=== PATIENT | female | born 1960 | race Caucasian/White ===

== ENCOUNTER → 2016-08-16 | Outpatient (CLI) | payer BC | END | disposition home or self-care (01) | LOC: LABWHC1 12:39 | PROVIDERS: ATTEND Otolaryngology | DX: J30.9 Allergic rhinitis, unspecified (principal) | CPT/HCPCS: 36415 ==

== ENCOUNTER 2018-05-03 07:47 | Day surgery (SDC) | payer BC ==
[2018-04-27 09:43] VITALS: BMI 24.0
--- NOTE | 2018-05-03 07:45 | P.HPOB ---
History of Present Illness H&P Date: 05/03/18 Chief Complaint: Postmenopausal bleeding 28-year-old presents for D&C hysteroscopy due to postmenopausal bleeding. Review of Systems All systems: negative Constitutional: Denies chills, Denies fever Eyes: denies blurred vision, denies pain Ears, nose, mouth and throat: Denies headache, Denies sore throat Cardiovascular: Denies chest pain, Denies shortness of breath Respiratory: Denies cough Gastrointestinal: Denies abdominal pain, Denies diarrhea, Denies nausea, Denies vomiting Genitourinary: Denies dysuria, Denies hematuria Musculoskeletal: Denies myalgias Integumentary: Denies pruritus, Denies rash Neurological: Denies numbness, Denies weakness Psychiatric: Denies anxiety, Denies depression Endocrine: Denies fatigue, Denies weight change Past Medical History Past Medical History: Asthma, GERD/Reflux Additional Past Medical History / Comment(s): post menopausal bleeding, Hx colitis,ulcerative colitis,Crohn's,mono x2,swine flu 2011,rt elbow fx,rt wrist fx History of Any Multi-Drug Resistant Organisms: None Reported Past Surgical History: Bowel Resection, Cholecystectomy, Uterine Ablation Additional Past Surgical History / Comment(s): ileostomy,mult bowel resections with clips present, x2,sinus surgery Past Anesthesia/Blood Transfusion Reactions: No Reported Reaction Additional Past Anesthesia/Blood Transfusion Reaction / Comment(s): blood transfusion 1981-no problems,Takes awhile to wake up with anesthesia Smoking Status: Never smoker - Past Family History Father Family Medical History: Congestive Heart Failure (CHF) Medications and Allergies Home Medications Medication Instructions Recorded Confirmed Type Aspirin 81 mg PO DAILY 11/20/14 04/27/18 History Azelastine HCl 2 spray EA NOSTRIL DAILY 11/20/14 04/27/18 History Cyanocobalamin [Vitamin B-12] 1.5 ml IM QMONTH 11/20/14 04/27/18 History Fexofenadine HCl [Maria Luz Allergy] 180 mg PO DAILY 11/20/14 04/27/18 History Levalbuterol Hfa Inhaler [Xopenex 1 puff INHALATION DAILY PRN 11/20/14 04/27/18 History Hfa Inhaler] Mometasone/Formoterol [Dulera 200 2 puff INHALATION QAM 11/20/14 04/27/18 History Mcg/5 Mcg Inhaler] Montelukast [Singulair] 10 mg PO HS 11/20/14 04/27/18 History Ranitidine HCl [Zantac] 300 mg OP BID 11/20/14 04/27/18 History Glucosam/Chond/Hyalu/Cf Borate 1 each PO DAILY 04/27/18 04/27/18 History [Move Free Joint Health Tablet] Multivitamin [Multivitamins Adult 1 each PO DAILY 04/27/18 04/27/18 History Gummies] Allergies Allergy/AdvReac Type Severity Reaction Status Date / Time esomeprazole magnesium Allergy Abdominal Verified 04/27/18 09:22 [From Nexium] Pain hydrocodone [From [place]] Allergy Anaphylaxis Verified 04/27/18 09:22 hydromorphone HCl Allergy severe Verified 04/27/18 09:22 [From Dilaudid] bradycardia karaya gum Allergy sultana Verified 04/27/18 09:22 [From Karaya Paste] omeprazole Allergy Abdominal Verified 04/27/18 09:22 Pain pantoprazole sodium Allergy Abdominal Verified 04/27/18 09:22 [From Protonix] Pain prednisone Allergy Rapid Verified 04/27/18 09:22 Heart Rate,psychotic methylphenidate HCl AdvReac Chest Pain Verified 04/27/18 09:22 [From Ritalin] Exam Osteopathic Statement: *. No significant issues noted on an osteopathic structural exam other than those noted in the History and Physical/Consult. Heart: Regular rate and rhythm Lungs: Clear to auscultation bilaterally Abdomen: Soft, nontender Extremities: Negative Homans sign Assessment and Plan (1) Postmenopausal bleeding Status: Acute Code(s): N95.0 - POSTMENOPAUSAL BLEEDING SNOMED Code(s): 88609542 Plan: D&C, hysteroscopy
[~2018-05-03 07:47] MED LIST: DEXAMETHASONE SOD PHOSPHATE 10 MG/ML 1 ML VIAL IV ONE; LACTATED RINGERS 1,000 ML IV SCH; LIDOCAINE 1% 20 ML VIAL (10MG/ML) FOR IV START INTRADERMA PRN; MIDAZOLAM (PF) 2 MG/2 ML VIAL IV PRN; ONDANSETRON 4 MG/2 ML VIAL IVP ONE; Pre Op ABX Message 1 EACH MISC MISCELLANE ONE; fentaNYL (PF) 50 MCG/ML 2 ML AMP IV PRN
[2018-05-03] MEDS ORDERED: LIDOCAINE 1% INJ 10MG/ML (20 ML MDV) ONE (09:11)
[2018-05-03] MEDS ORDERED: fentaNYL (PF) 50 MCG/ML 2 ML AMP ONE (09:11)
[2018-05-03] MEDS ORDERED: MIDAZOLAM 2 MG/2 ML VIAL ONE (09:11)
[2018-05-03] MEDS ORDERED: PROPOFOL 10 MG/ML 20 ML VIAL IV ONE (09:11)
--- NOTE | 2018-05-03 09:41 | P.OP ---
Date of Procedure: 05/03/18 Preoperative Diagnosis: 1. postmenopausal bleeding Postoperative Diagnosis: 1. postmenopausal bleeding 2. stenotic cervix Procedure(s) Performed: D&C hysteroscopy Anesthesia: MAC Surgeon: Destiny Bashir Estimated Blood Loss (ml): 2 IV fluids (ml): 600 Urine output (ml): 50 Pathology: other (endometrial currettings) Condition: stable Disposition: PACU Operative Findings: stenotic cervix, hysteroscopy showed normal cervix, I may have gotten into a false passage or there is scarring inside the uterine cavity. Description of Procedure: Patient taken the operating room where general anesthesia was obtained without difficulty. She is prepped and draped in normal sterile fashion dorsal lithotomy position, legs placed in candycane stirrups. Bladder was drained of all urine. Weighted speculum place in vagina the anterior lip the cervix was grasped with single-tooth tenaculum. The cervix was dilated with some difficulty but the #6 Hegar dilator. Hysteroscopy was performed and I did see a normal cervical opening and then the cervix, there was either scarring inside of the uterus over a false passage was made into the endometrium. Sharp as it was gently used to obtain endometrial curettings. All instruments removed from the vagina. Patient tolerated procedure well. Sponge and instrument counts correct 2. She was taken to recovery in stable condition.
[2018-05-03 09:54] VITALS: TEMP 97.2
[2018-05-03 10:07] VITALS: RESP 16
[2018-05-03] MEDS ORDERED: KETOROLAC 30 MG/ML 1 ML VIAL IVP ONE (10:25)
[2018-05-03 12:00] VITALS: BP 123/82; PULSE 70
== END 2018-05-03 12:45 | disposition home or self-care (01) ==
LOC: OR 07:47
PROVIDERS: ATTEND Obstetrics & Gynecology
DX: N85.9 Noninflammatory disorder of uterus, unspecified (principal); N95.0 Postmenopausal bleeding; J45.909 Unspecified asthma, uncomplicated; K21.9 Gastro-esophageal reflux disease without esophagitis; K50.90 Crohn's disease, unspecified, without complications; I10 Essential (primary) hypertension; Z90.49 Acquired absence of other specified parts of digestive tract; Z79.82 Long term (current) use of aspirin; Z79.51 Long term (current) use of inhaled steroids; Z79.899 Other long term (current) drug therapy; Z88.5 Allergy status to narcotic agent; Z88.8 Allergy status to other drugs, medicaments and biological substances
CPT/HCPCS: 88305; 58558; J2250; J1100; J2405; J2001; J3010; J1885; J2704

== ENCOUNTER → 2018-05-31 | Outpatient (CLI) | payer BC ==
[2018-05-31 12:53] LABS: Basophils # (A) 0.1 k/uL (0-0.2); Basophils % (A) 1 %; Eosinophils # (A) 0.3 k/uL (0-0.7); Eosinophils % (A) 4 %; HCT 45.9 % (34.0-46.0); HGB 14.8 gm/dL (11.4-16.0); Lymphocytes # (A) 1.6 k/uL (1.0-4.8); Lymphocytes % (A) 26 %; MCH 28.3 pg (25.0-35.0); MCHC 32.1 g/dL (31.0-37.0); Mean Platelet Volume 5.8; Monocytes # (A) 0.3 k/uL (0-1.0); Monocytes % (A) 5 %; Neutrophils # (A) 3.7 k/uL (1.3-7.7); Neutrophils % (A) 61 %; Platelet Count 336 k/uL (150-450); RBC 5.22 m/uL (3.80-5.40); RDW 13.1 % (11.5-15.5); WBC 6.1 k/uL (3.8-10.6)
[2018-05-31 12:58] LABS: Anion Gap 7 mmol/L; Blood Urea Nitrogen 13 mg/dL (7-17); Calcium 9.9 mg/dL (8.4-10.2); Carbon Dioxide 29 mmol/L (22-30); Chloride 106 mmol/L (98-107); Glucose 88 mg/dL (74-99); Potassium 4.5 mmol/L (3.5-5.1); Sodium 142 mmol/L (137-145)
== END | disposition home or self-care (01) ==
LOC: LABPAT 11:53
PROVIDERS: ATTEND Obstetrics & Gynecology
DX: Z01.812 Encounter for preprocedural laboratory examination (principal)
CPT/HCPCS: 80048; 85025

== ENCOUNTER 2018-06-05 05:50 | Inpatient (IN) | payer BC ==
[2018-06-01 11:07] VITALS: BMI 23.5
[~2018-06-05 05:50] MED LIST changes: -LACTATED RINGERS 1,000 ML IV SCH; -ONDANSETRON 4 MG/2 ML VIAL IVP ONE; -Pre Op ABX Message 1 EACH MISC MISCELLANE ONE; +ceFAZolin IN SWFI 2 GM/20 ML SYRINGE IVP ONE
--- NOTE | 2018-06-05 06:19 | P.HPOB ---
History of Present Illness H&P Date: 06/05/18 Chief Complaint: PMB 58 year old presents for total abdominal hysterectomy bilateral salpingo- oopherectomy for postmenopausal bleeding. She had an US that showed thickened endometrium and D&C was unable to assess endometrium. After consultation with REFERRAL COORDINATOR/ONC the recommendation is hysterectomy. Review of Systems All systems: negative Constitutional: Denies chills, Denies fever Eyes: denies blurred vision, denies pain Ears, nose, mouth and throat: Denies headache, Denies sore throat Cardiovascular: Denies chest pain, Denies shortness of breath Respiratory: Denies cough Gastrointestinal: Denies abdominal pain, Denies diarrhea, Denies nausea, Denies vomiting Genitourinary: Denies dysuria, Denies hematuria Musculoskeletal: Denies myalgias Integumentary: Denies pruritus, Denies rash Neurological: Denies numbness, Denies weakness Psychiatric: Denies anxiety, Denies depression Endocrine: Denies fatigue, Denies weight change Past Medical History Past Medical History: Asthma, GERD/Reflux Additional Past Medical History / Comment(s): post menopausal bleeding, Hx colitis,ulcerative colitis,Crohn's,mono x2,swine flu 2011,rt elbow fx,rt wrist fx History of Any Multi-Drug Resistant Organisms: None Reported Past Surgical History: Bowel Resection, Cholecystectomy, Uterine Ablation Additional Past Surgical History / Comment(s): ileostomy,mult bowel resections with clips present, x2,sinus surgery, D & C Past Anesthesia/Blood Transfusion Reactions: No Reported Reaction, Family History of Problems w/ Anesthesia Additional Past Anesthesia/Blood Transfusion Reaction / Comment(s): blood transfusion 1981-no problems,Takes a while to wake up from anesthesia, nephew had seizure after anesthesia, no malignant hyperthermia that she knows of Smoking Status: Never smoker - Past Family History Father Family Medical History: Congestive Heart Failure (CHF) Medications and Allergies Home Medications Medication Instructions Recorded Confirmed Type Aspirin 81 mg PO DAILY 11/20/14 06/01/18 History Azelastine HCl 2 spray EA NOSTRIL DAILY 11/20/14 06/01/18 History Cyanocobalamin [Vitamin B-12] 1.5 ml IM QMONTH 11/20/14 06/01/18 History Fexofenadine HCl [Maria Luz Allergy] 180 mg PO DAILY 11/20/14 06/01/18 History Levalbuterol Hfa Inhaler [Xopenex 1 puff INHALATION DAILY PRN 11/20/14 06/01/18 History Hfa Inhaler] Mometasone/Formoterol [Dulera 200 2 puff INHALATION QAM 11/20/14 06/01/18 History Mcg/5 Mcg Inhaler] Montelukast [Singulair] 10 mg PO QAM 11/20/14 06/01/18 History Ranitidine HCl [Zantac] 300 mg OP BID 11/20/14 06/01/18 History Glucosam/Chond/Hyalu/Cf Borate 1 each PO DAILY 04/27/18 06/01/18 History [Move Free Joint Health Tablet] Multivitamin [Multivitamins Adult 1 each PO DAILY 04/27/18 06/01/18 History Gummies] Allergies Allergy/AdvReac Type Severity Reaction Status Date / Time esomeprazole magnesium Allergy Abdominal Verified 06/01/18 10:33 [From Nexium] Pain hydrocodone [From [place]] Allergy Anaphylaxis Verified 06/01/18 10:33 hydromorphone HCl Allergy severe Verified 06/01/18 10:33 [From Dilaudid] bradycardia karaya gum Allergy sultana Verified 06/01/18 10:33 [From Karaya Paste] omeprazole Allergy Abdominal Verified 06/01/18 10:33 Pain pantoprazole sodium Allergy Abdominal Verified 06/01/18 10:33 [From Protonix] Pain prednisone Allergy Rapid Verified 06/01/18 10:33 Heart Rate,psychotic methylphenidate HCl AdvReac Chest Pain Verified 06/01/18 10:33 [From Ritalin] Exam Osteopathic Statement: *. No significant issues noted on an osteopathic structural exam other than those noted in the History and Physical/Consult. HEart: RRR Lungs: CTAB Abdomen: soft, nontender Extremeties: neg cem's Assessment and Plan (1) Postmenopausal bleeding Current Visit: No Status: Acute Code(s): N95.0 - POSTMENOPAUSAL BLEEDING SNOMED Code(s): 37548585 Plan: 1. total abdominal hysterectomy bilateral salpingo-oopherectomy
[2018-06-05] MEDS ORDERED: ONDANSETRON 4 MG/2 ML VIAL IVP ONE (06:58)
[2018-06-05] MEDS: LACTATED RINGERS 1,000 ML IV SCH ×2 (06:58→13:49)
[2018-06-05] MEDS ORDERED: HYDROCORTISONE SUCCINATE 100 MG/2 ML VIAL IVP ONE (06:59)
[2018-06-05] MEDS ORDERED: diphenhydrAMINE 50 MG/ML 1 ML VIAL IVP ONE (07:22)
[2018-06-05] MEDS ORDERED: ROCURONIUM BROMIDE 10 MG/ML 10 ML VIAL IV ONE (07:27)
[2018-06-05] MEDS ORDERED: PROPOFOL 10 MG/ML 20 ML VIAL IV ONE (07:27)
[2018-06-05] MEDS ORDERED: MIDAZOLAM 2 MG/2 ML VIAL ONE (07:27)
[2018-06-05] MEDS ORDERED: LIDOCAINE 1% INJ 10MG/ML (20 ML MDV) ONE (07:27)
[2018-06-05] MEDS ORDERED: MORPHINE SULFATE (PF) 0.3 MG/0.3 ML SYR ONE (07:27)
[2018-06-05] MEDS ORDERED: NEOSTIGMINE 1 MG/ML 10 ML VIAL ONE (07:27)
[2018-06-05] MEDS ORDERED: GLYCOPYRROLATE 0.2 MG/ML 2 ML VIAL ONE (07:27)
[2018-06-05] MEDS ORDERED: SUCCINYLCHOLINE CHLORIDE 100 MG/5 ML SYR IV ONE (07:27)
[2018-06-05] MEDS ORDERED: fentaNYL (PF) 50 MCG/ML 2 ML AMP ONE (07:27)
--- NOTE | 2018-06-05 09:01 | P.OP ---
Date of Procedure: 06/05/18 Preoperative Diagnosis: 1. postmenopausal bleeding Postoperative Diagnosis: 1. same Procedure(s) Performed: [facility] BSO Anesthesia: BOBBY Surgeon: Destiny Bashir Property Insurance Inspector #1: Nohemi Christensen Estimated Blood Loss (ml): 100 IV fluids (ml): 700 Urine output (ml): 50 Pathology: other (uterus, cervix, bilateral tubes and ovaries) Condition: stable Disposition: PACU Operative Findings: normal size and shape uterus, tubes and ovaries. Description of Procedure: Patient is taken the operating room where general anesthesia was obtained without difficulty. She is prepped and draped in normal sterile fashion, careful to cover her ileostomy site, in dorsal supine position. Marie catheter was placed. Pfannenstiel skin incision was made with scalpel carried through to underlying layer fascia with the scalpel. Fascia was incised in the midline and carried bilaterally with Nash scissors. Superior aspect of the fascia was grasped with a [place] clamps elevated and the underlying rectus muscles dissected off with Mayos. Inferior aspect of the same incision was grasped with the [place] clamps elevated and the underlying rectus muscles dissected off with the Nash's. Rectus muscles were the midline and the peritoneum was identified tented up and entered sharply with the scalpel. Incision was extended superiorly and inferiorly with good visualization of the bladder. The [place] self-retaining retractor was placed. The bowel is packed away with moist laparotomy sponges. Survey of the pelvis revealed a normal appearing uterus, tubes and bilateral ovaries. Lily clamps were used to stabilize the uterus and replaced at the cornu bilaterally. A Marilyn clamp was used to clamp across the right infundibular pelvic ligament was cut and suture ligated. A clamp was used in a stepwise fashion down the broad ligament to the uterine artery. These pedicles were clamped cut and then suture ligated. Marilyn clamp was used to clamp across the left infundibulopelvic ligament, cut and suture ligated. Same processed on this side was done down to the uterine artery. The uterine arteries on both sides were clamped with Marilyn clamps, cut and suture ligated. The bladder flap was taken down with Metzenbaums and pushed off the cervix with a moist laparotomy sponge. The sacral ligaments and cardinal limited ligaments were clamped cut and suture ligated on both sides. The uterus was amputated off the underlying vaginal mucosa. Vaginal mucosa was closed with 0 Vicryl in a running locked fashion. The pelvis was copiously irrigated and hemostasis was assured. All instruments were removed from the abdomen. The peritoneum was reapproximated with 2-0 Vicryl in a running fashion. The muscles were approximated with 2-0 Vicryl in interrupted fashion. The fascia was reapproximated with 0 Vicryl in running fashion. Subcu tissues closed with 3-0 Vicryl in running fashion. The skin was closed vladimir. Patient tolerated procedure well, sponge and instrument counts were correct 2. She was taken to recovery room in stable condition.
[2018-06-05] MEDS ORDERED: LACTATED RINGERS 1,000 ML IV ONE (09:03)
[2018-06-05] MEDS ORDERED: KETOROLAC 30 MG/ML 1 ML VIAL IVP ONE (09:48)
[2018-06-05] MEDS ORDERED: MORPHINE SULFATE 4 MG/ML SYRINGE IVP ONE (10:08)
[2018-06-05] MEDS ORDERED: MORPHINE SULFATE 4 MG/ML SYRINGE IVP PRN (10:18)
[2018-06-05] MEDS ORDERED: ONDANSETRON 4 MG/2 ML VIAL IVP PRN ×2 (10:18→10:36)
[2018-06-05] MEDS ORDERED: NALOXONE 0.4 MG/ML 1 ML VIAL IV PRN (10:18)
[2018-06-05] MEDS ORDERED: NALBUPHINE 10 MG/ML (1 ML AMP) IV PRN (10:18)
[2018-06-05] MEDS ORDERED: diphenhydrAMINE 50 MG/ML 1 ML VIAL IVP PRN ×2 (10:18→10:36)
[2018-06-05] MEDS ORDERED: METOCLOPRAMIDE 5 MG/ML 2 ML VIAL IVP PRN ×2 (10:18→10:36)
[2018-06-05] MEDS ORDERED: Acetaminophen-Codeine 300-30mg TAB PO PRN (10:36)
[2018-06-05] MEDS ORDERED: ALBUTEROL NEBULIZED 2.5 MG/3 ML INHALATION PRN (10:36)
[2018-06-05] MEDS ORDERED: SENNOSIDES-DOCUSATE SODIUM 1 EACH TAB PO PRN (10:36)
[2018-06-05] MEDS ORDERED: SIMETHICONE 80 MG CHEWABLE PO PRN (10:36)
[2018-06-05] MEDS: MONTELUKAST 10 MG TAB PO SCH (13:48)
[2018-06-05] MEDS: SYMBICORT 160-4.5 MCG INHALER INHALATION SCH ×2 (13:50→15:48)
[2018-06-05] MEDS: AZELASTINE 137MCG/SPRAY EA NOSTRIL SCH (13:50)
[2018-06-05] MEDS: LORATADINE 10 MG TAB PO SCH (13:50)
[2018-06-05] MEDS: FAMOTIDINE 20 MG TAB PO SCH ×2 (13:50→21:52)
[2018-06-05] MEDS: diphenhydrAMINE 50 MG CAP PO PRN (14:20)
[2018-06-05] MEDS: KETOROLAC 30 MG/ML 1 ML VIAL IVP PRN ×2 (16:07→21:59)
[2018-06-06] MEDS: KETOROLAC 30 MG/ML 1 ML VIAL IVP PRN (06:26)
[2018-06-06] MEDS: diphenhydrAMINE 50 MG CAP PO PRN (06:35)
[2018-06-06] MEDS: LACTATED RINGERS 1,000 ML IV SCH (06:35)
[2018-06-06 08:13] LABS: Basophils # (A) 0.1 k/uL (0-0.2); Basophils % (A) 1 %; Eosinophils # (A) 0.1 k/uL (0-0.7); Eosinophils % (A) 1 %; HCT 37.1 % (34.0-46.0); HGB 12.1 gm/dL (11.4-16.0); Lymphocytes # (A) 2.2 k/uL (1.0-4.8); Lymphocytes % (A) 18 %; MCH 29.3 pg (25.0-35.0); MCHC 32.7 g/dL (31.0-37.0); MCV 89.6 fL (80.0-100.0); Mean Platelet Volume 5.8; Monocytes # (A) 0.7 k/uL (0-1.0); Monocytes % (A) 6 %; Neutrophils # (A) 9.3 k/uL (1.3-7.7); Neutrophils % (A) 74 %; Platelet Count 310 k/uL (150-450); RBC 4.14 m/uL (3.80-5.40); RDW 13.4 % (11.5-15.5); WBC 12.5 k/uL (3.8-10.6)
[2018-06-06] MEDS: AZELASTINE 137MCG/SPRAY EA NOSTRIL SCH (08:14)
[2018-06-06] MEDS: FAMOTIDINE 20 MG TAB PO SCH ×2 (08:14→23:37)
[2018-06-06] MEDS: MONTELUKAST 10 MG TAB PO SCH (08:15)
[2018-06-06] MEDS: LORATADINE 10 MG TAB PO SCH (08:15)
--- NOTE | 2018-06-06 08:36 | P.PN ---
Progress Note - Text Progress Note Date: 06/06/18 Status post total abdominal hysterectomy with bilateral salpingo-oophorectomy. Postoperative day #1 Patient seen and examined. She had adequate output on her Marie catheter and her ileostomy bag. She is tolerating regular diet. She is ambulating without difficulty, but has not voided since the catheter was removed 2 hours ago. Her pain is controlled with Toradol and will be switching to oral medication today. Vital signs are stable Heart: Regular rate and rhythm Lungs: Clear to auscultation bilaterally Abdomen: Soft, expected postop tenderness, incision is clean, dry, intact with vladimir, her ileostomy site is intact with liquid stool noted in the bag. Extremities: Negative Homans sign Assessment 1. Status post total abdominal hysterectomy with bilateral salpingo- oophorectomy postop day #1 Plan 1. Increase ambulation 2. by mouth pain medication
[2018-06-06] MEDS: SYMBICORT 160-4.5 MCG INHALER INHALATION SCH ×2 (09:59→20:53)
--- NOTE | 2018-06-06 10:34 | P.PN ---
Progress Note - Text Progress Note Date: 06/06/18 Postoperative day 1 status post , total abdominal hysterectomy, under general endotracheal anesthesia, and intrathecal morphine given for postoperative analgesia, patient doing well, there is no anesthesia related complications, Patient had no headache, vital signs stable , Assessment and plan= postop day 1, , doing well there is no anesthesia related complication.
[2018-06-06] MEDS: IBUPROFEN 600 MG TAB PO PRN ×2 (12:20→19:55)
[2018-06-06] MEDS: Acetaminophen-Codeine 300-30mg TAB PO PRN ×2 (16:10→23:35)
[2018-06-06 22:11] VITALS: RESP 16
[2018-06-07] MEDS: IBUPROFEN 600 MG TAB PO PRN (05:40)
--- NOTE | 2018-06-07 08:03 | P.DS ---
Providers Date of admission: 06/05/18 05:50 Expected date of discharge: 06/07/18 Attending physician: Destiny Bashir Primary care physician: Isak Milligan - Discharge Diagnosis(es) (1) Postmenopausal bleeding Current Visit: No Status: Acute (2) Status post total abdominal hysterectomy and bilateral salpingo-oophorectomy Current Visit: Yes Status: Acute Hospital Course: Patient presented for [facility] BSO for PMB. She underwent this procedure without complication. HEr postop course was uncomplicated. She will be discharged home POD #2 in stable condition to follow up with me in 1 week. Plan - Discharge Summary Discharge Rx Participant: No New Discharge Prescriptions: New Acetaminophen-Codeine 300-30mg [Tylenol w/codeine #3] 2 each PO Q6HR PRN #24 tab PRN Reason: Severe Pain Ibuprofen [Motrin] 600 mg PO Q6HR PRN #30 tab PRN Reason: Mild Discomfort No Action Azelastine HCl 2 spray EA NOSTRIL DAILY Mometasone/Formoterol [Dulera 200 Mcg/5 Mcg Inhaler] 2 puff INHALATION QAM Ranitidine HCl [Zantac] 300 mg PO BID Montelukast [Singulair] 10 mg PO QAM Fexofenadine HCl [Maria Luz Allergy] 180 mg PO DAILY Aspirin 81 mg PO DAILY Levalbuterol Hfa Inhaler [Xopenex Hfa Inhaler] 1 puff INHALATION DAILY PRN PRN Reason: sob Cyanocobalamin [Vitamin B-12] 1.5 ml IM QMONTH Glucosam/Chond/Hyalu/Cf Borate [Move Free Joint Health Tablet] 1 each PO DAILY Multivitamin [Multivitamins Adult Gummies] 1 each PO DAILY Discharge Medication List Aspirin 81 mg PO DAILY 11/20/14 [History] Azelastine HCl 2 spray EA NOSTRIL DAILY 11/20/14 [History] Cyanocobalamin [Vitamin B-12] 1.5 ml IM QMONTH 11/20/14 [History] Fexofenadine HCl [Maria Luz Allergy] 180 mg PO DAILY 11/20/14 [History] Levalbuterol Hfa Inhaler [Xopenex Hfa Inhaler] 1 puff INHALATION DAILY PRN 11/20 [History] Mometasone/Formoterol [Dulera 200 Mcg/5 Mcg Inhaler] 2 puff INHALATION QAM 11/20 [History] Montelukast [Singulair] 10 mg PO QAM 11/20/14 [History] Ranitidine HCl [Zantac] 300 mg PO BID 11/20/14 [History] Glucosam/Chond/Hyalu/Cf Borate [Move Free Joint Health Tablet] 1 each PO DAILY 04/27/18 [History] Multivitamin [Multivitamins Adult Gummies] 1 each PO DAILY 04/27/18 [History] Acetaminophen-Codeine 300-30mg [Tylenol w/codeine #3] 2 each PO Q6HR PRN #24 tab 06/07/18 [Rx] Ibuprofen [Motrin] 600 mg PO Q6HR PRN #30 tab 06/07/18 [Rx] Follow up Appointment(s)/Referral(s): Destiny Bashir DO [Doctor of Osteopathic Medicine] - 1 Week Discharge Disposition: HOME SELF-CARE
[2018-06-07] MEDS: AZELASTINE 137MCG/SPRAY EA NOSTRIL SCH (08:29)
[2018-06-07] MEDS: LORATADINE 10 MG TAB PO SCH (08:30)
[2018-06-07] MEDS: MONTELUKAST 10 MG TAB PO SCH (08:30)
[2018-06-07] MEDS: FAMOTIDINE 20 MG TAB PO SCH (08:30)
[2018-06-07 09:05] VITALS: BP 123/79; PULSE 80; TEMP 97.9
[2018-06-07] MEDS: Acetaminophen-Codeine 300-30mg TAB PO PRN (09:15)
[2018-06-07] MEDS: SYMBICORT 160-4.5 MCG INHALER INHALATION SCH (09:31)
[2018-06-28] MEDS ORDERED: CYANOCOBALAMIN 1,000 MCG/ML 1 ML VIAL IM SCH (12:00)
== END 2018-06-07 10:38 | disposition home or self-care (01) | DRG 743 ==
LOC: 2ORMAIN 05:50 → EDSTATUS 07:30 → 4FBP 09:59
PROVIDERS: ADMIT Obstetrics & Gynecology; ATTEND Obstetrics & Gynecology
PROC: 0UT90ZZ Resection of Uterus, Open Approach (ICD-10-PCS; principal; 2018-06-05 07:30)
PROC: 0UT70ZZ Resection of Bilateral Fallopian Tubes, Open Approach (ICD-10-PCS; principal; 2018-06-05 07:30)
PROC: 0UT20ZZ Resection of Bilateral Ovaries, Open Approach (ICD-10-PCS; principal; 2018-06-05 07:30)
DX: N95.0 Postmenopausal bleeding (principal); J45.909 Unspecified asthma, uncomplicated; K21.9 Gastro-esophageal reflux disease without esophagitis; Z79.51 Long term (current) use of inhaled steroids; Z79.82 Long term (current) use of aspirin; Z82.49 Family history of ischemic heart disease and other diseases of the circulatory system; Z88.5 Allergy status to narcotic agent; Z88.8 Allergy status to other drugs, medicaments and biological substances; Z93.2 Ileostomy status
CPT/HCPCS: 36415; 85025; 86850; 86900; 86901; 88307

== ENCOUNTER 2019-06-20 00:45 | Emergency (ER) | payer BC, MEDICAID, OTHER ==
[2019-06-20] MEDS ORDERED: SODIUM CHLORIDE 0.9% 2,000 ML IV STA (01:36)
[2019-06-20] MEDS ORDERED: ONDANSETRON 4 MG/2 ML VIAL IVP STA (01:37)
[2019-06-20] MEDS ORDERED: DICYCLOMINE 10 MG/ML 2 ML AMP IM STA (01:37)
--- NOTE | 2019-06-20 01:40 | ED ---
Abdominal Pain HPI - General Chief Complaint: Abdominal Pain Stated Complaint: NVD Time Seen by Provider: 06/20/19 01:17 Source: patient Mode of arrival: ambulatory Limitations: no limitations - History of Present Illness Initial Comments: Patient is 59-year-old female with history of ulcerative colitis and Crohn's presenting to emergency Department with a chief complaint nausea and diarrhea. Patient has an ileostomy for about 35 years. Patient reports over the last few days she is developed increased output in her ileostomy bag. Patient does rep ort more liquid stools. Also reports abdominal cramping during this period. Patient reports today she developed nausea after attempting to drink some Pedialyte but denies any vomiting. Denies any night sweats fevers or chills. Denies any recent travels outside of the country. Denies any blood in the ileostomy bag. Does report decreased urine output although states this is her baseline whenever she has a flareup like this. States this is very common for her as she tends to dehydrate very quickly. - Related Data Home Medications Medication Instructions Recorded Confirmed Aspirin 81 mg PO DAILY 11/20/14 06/05/18 Azelastine HCl 2 spray EA NOSTRIL DAILY 11/20/14 06/05/18 Cyanocobalamin [Vitamin B-12] 1.5 ml IM QMONTH 11/20/14 06/05/18 Fexofenadine HCl [Maria Luz Allergy] 180 mg PO DAILY 11/20/14 06/05/18 Levalbuterol Hfa Inhaler [Xopenex 1 puff INHALATION DAILY PRN 11/20/14 06/05/18 Hfa Inhaler] Mometasone/Formoterol [Dulera 200 2 puff INHALATION QAM 11/20/14 06/05/18 Mcg/5 Mcg Inhaler] Montelukast [Singulair] 10 mg PO QAM 11/20/14 06/05/18 Ranitidine HCl [Zantac] 300 mg PO BID 11/20/14 06/05/18 Glucosam/Chond/Hyalu/Cf Borate 1 each PO DAILY 04/27/18 06/05/18 [Move Free Joint Joobili Tablet] Multivitamin [Multivitamins Adult 1 each PO DAILY 04/27/18 06/05/18 Gummies] Previous Rx's Medication Instructions Recorded Acetaminophen-Codeine 300-30mg 2 each PO Q6HR PRN #24 tab 06/07/18 [Tylenol w/codeine #3] Ibuprofen [Motrin] 600 mg PO Q6HR PRN #30 tab 06/07/18 Dicyclomine [Bentyl] 20 mg PO TID #30 tablet 06/20/19 Allergies Allergy/AdvReac Type Severity Reaction Status Date / Time egg Allergy Nausea & Verified 06/20/19 00:58 Vomiting & Diarrhea esomeprazole magnesium Allergy Abdominal Verified 06/20/19 00:58 [From Nexium] Pain hydrocodone [From [place]] Allergy Anaphylaxis Verified 06/20/19 00:58 hydromorphone HCl Allergy severe Verified 06/20/19 00:58 [From Dilaudid] bradycardia karaya gum Allergy sultana Verified 06/20/19 00:58 [From Karaya Paste] lactose Allergy Nausea & Verified 06/20/19 00:58 Vomiting & Diarrhea lettuce Allergy Nausea & Verified 06/20/19 00:58 Vomiting & Diarrhea omeprazole Allergy Abdominal Verified 06/20/19 00:58 Pain pantoprazole sodium Allergy Abdominal Verified 06/20/19 00:58 [From Protonix] Pain prednisone Allergy Rapid Verified 06/20/19 00:58 Heart Rate,psychotic methylphenidate HCl AdvReac Chest Pain Verified 06/20/19 00:58 [From Ritalin] Review of Systems ROS Statement: Those systems with pertinent positive or pertinent negative responses have been documented in the HPI. ROS Other: All systems not noted in ROS Statement are negative. Past Medical History Past Medical History: Asthma, GERD/Reflux Additional Past Medical History / Comment(s): post menopausal bleeding, Hx colitis,ulcerative colitis,Crohn's,mono x2,swine flu 2011,rt elbow fx,rt wrist fx History of Any Multi-Drug Resistant Organisms: None Reported Past Surgical History: Bowel Resection, Cholecystectomy, Uterine Ablation Additional Past Surgical History / Comment(s): ileostomy,mult bowel resections with clips present, x2,sinus surgery Past Anesthesia/Blood Transfusion Reactions: No Reported Reaction Additional Past Anesthesia/Blood Transfusion Reaction / Comment(s): blood transfusion 1981-no problems,Takes a while to wake up from anesthesia, nephew had seizure after anesthesia, no malignant hyperthermia that she knows of Past Psychological History: No Psychological Hx Reported Smoking Status: Never smoker Past Alcohol Use History: None Reported Past Drug Use History: None Reported - Past Family History Father Family Medical History: Congestive Heart Failure (CHF) General Exam Limitations: no limitations General appearance: alert, in no apparent distress Head exam: Present: atraumatic, normocephalic, normal inspection Eye exam: Present: normal appearance Pupils: Present: normal accommodation ENT exam: Present: normal exam Neck exam: Present: normal inspection, full ROM Respiratory exam: Present: normal lung sounds bilaterally Cardiovascular Exam: Present: regular rate, normal rhythm, normal heart sounds GI/Abdominal exam: Present: soft, tenderness (Mild, diffuse tenderness), normal bowel sounds, other (Ileostomy bag). Absent: distended, guarding, rebound, rigid Extremities exam: Present: normal inspection, full ROM Back exam: Present: normal inspection, full ROM Neurological exam: Present: alert, oriented X3 Psychiatric exam: Present: normal affect, normal mood Skin exam: Present: warm, dry, intact, normal color Course Vital Signs 06/20/19 00:53 Temperature 98.0 F Pulse Rate 89 Respiratory 20 Rate Blood Pressure 130/81 O2 Sat by Pulse 99 Oximetry Medical Decision Making - Medical Decision Making Patient is a 59-year-old female with history of Crohn's and ulcerative colitis presenting to emergency Department with a chief complaint of nausea and diarrhea. She's had symptoms like this multiple times and she is worried about becoming overly dehydrated. Whenever this occurs, she comes to the ED for rehydration and is typically discharge. On exam patient did have watery stool in her ileostomy bag. Also diffuse cramping. Patient was given 2 L of bolus fluids, antiemetics and Bentyl. On reevaluation patient reports the cramping owens s completely resolved and she feels much better. I suspect the symptoms are secondary to a flareup of her IBS. Patient will be discharged with Bentyl. She already has Zofran at home. Advised to drink lots of fluids And eat a BRAT diet. Return parameters were thoroughly discussed the patient was understanding and agreeable. Case discussed with physician. - Lab Data Result diagrams: 06/20/19 01:50 06/20/19 01:50 Lab Results 06/20/19 06/20/19 Range/Units 01:50 01:50 WBC 7.9 (3.8-10.6) k/uL RBC 5.03 (3.80-5.40) m/uL Hgb 14.6 (11.4-16.0) gm/dL Hct 43.3 (34.0-46.0) % MCV 86.0 (80.0-100.0) fL MCH 29.0 (25.0-35.0) pg MCHC 33.8 (31.0-37.0) g/dL RDW 13.2 (11.5-15.5) % Plt Count 431 (150-450) k/uL Neutrophils % 63 % Lymphocytes % 26 % Monocytes % 4 % Eosinophils % 4 % Basophils % 1 % Neutrophils # 5.0 (1.3-7.7) k/uL Lymphocytes # 2.0 (1.0-4.8) k/uL Monocytes # 0.4 (0-1.0) k/uL Eosinophils # 0.3 (0-0.7) k/uL Basophils # 0.1 (0-0.2) k/uL Sodium 137 (137-145) mmol/L Potassium 3.9 (3.5-5.1) mmol/L Chloride 103 (98-107) mmol/L Carbon Dioxide 22 (22-30) mmol/L Anion Gap 12 mmol/L BUN 16 (7-17) mg/dL Creatinine 0.79 (0.52-1.04) mg/dL Est GFR (CKD-EPI)AfAm >90 (>60 ml/min/1.73 sqM) Est GFR (CKD-EPI)NonAf 84 (>60 ml/min/1.73 sqM) Glucose 105 H (74-99) mg/dL Calcium 9.9 (8.4-10.2) mg/dL Total Bilirubin 0.6 (0.2-1.3) mg/dL AST 27 (14-36) U/L ALT 27 (4-34) U/L Alkaline Phosphatase 106 (38-126) U/L Total Protein 7.6 (6.3-8.2) g/dL Albumin 4.6 (3.5-5.0) g/dL Amylase 86 (30-110) U/L Lipase 221 (23-300) U/L Disposition Clinical Impression: Diarrhea, Abdominal cramping Disposition: HOME SELF-CARE Condition: Stable Instructions (If sedation given, give patient instructions): Dehydration (ED) Additional Instructions: Take prescribed medication as directed. Drink lots of fluids. Eat bananas, rice, applesauce and toast diet. Return to emergency department if symptoms worsen. Prescriptions: Dicyclomine [Bentyl] 20 mg PO TID #30 tablet Is patient prescribed a controlled substance at d/c from ED?: No Referrals: Isak Milligan MD [Primary Care Provider] - 1-2 days Time of Disposition: 02:57
[2019-06-20 01:55] LABS: Basophils # (A) 0.1 k/uL (0-0.2); Basophils % (A) 1 %; Eosinophils # (A) 0.3 k/uL (0-0.7); Eosinophils % (A) 4 %; HCT 43.3 % (34.0-46.0); HGB 14.6 gm/dL (11.4-16.0); Lymphocytes % (A) 26 %; MCHC 33.8 g/dL (31.0-37.0); Mean Platelet Volume 7.1; Monocytes # (A) 0.4 k/uL (0-1.0); Monocytes % (A) 4 %; Neutrophils % (A) 63 %; Platelet Count 431 k/uL (150-450); RBC 5.03 m/uL (3.80-5.40); RDW 13.2 % (11.5-15.5); WBC 7.9 k/uL (3.8-10.6)
[2019-06-20 02:03] LABS: ALT 27 U/L (4-34); AST 27 U/L (14-36); African American GFR (CKD) >90 (>60 ml/min/1.73 sqM); Albumin 4.6 g/dL (3.5-5.0); Alkaline Phosphatase 106 U/L (38-126); Amylase 86 U/L (30-110); Anion Gap 12 mmol/L; Blood Urea Nitrogen 16 mg/dL (7-17); Calcium 9.9 mg/dL (8.4-10.2); Carbon Dioxide 22 mmol/L (22-30); Chloride 103 mmol/L (98-107); Glucose 105 mg/dL (74-99); Non-African American GFR(CKD) 84 (>60 ml/min/1.73 sqM); Potassium 3.9 mmol/L (3.5-5.1); Sodium 137 mmol/L (137-145); Total Bilirubin 0.6 mg/dL (0.2-1.3); Total Protein 7.6 g/dL (6.3-8.2)
[2019-06-20 04:02] VITALS: BP 124/71; PULSE 96; RESP 18; TEMP 98.4
[2019-06-20 04:11] LABS: Appearance,Urine Slightly Cloudy (Clear); Color,Urine Yellow
[2019-06-20 04:12] LABS: Bilirubin,Urine Negative (Negative); Blood,Urine Negative (Negative); Glucose,Urine (UA) Negative (Negative); Ketones,Urine Negative (Negative); Leukocyte Esterase,Urine Large (Negative); Nitrite,Urine Negative (Negative); Protein,Urine Negative (Negative); Urobilinogen,Urine <2.0 mg/dL (<2.0)
[2019-06-20 04:19] LABS: Bacteria,Urine Few /hpf; Mucus,Urine Many /hpf; RBC,Urine 9 /hpf (0-5); Squamous Epithelial Cell,Urine 5 /hpf (0-4); WBC,Urine 129 /hpf (0-5)
== END 2019-06-20 03:56 | disposition home or self-care (01) ==
LOC: EC 00:45
DX: R10.9 Unspecified abdominal pain (principal); R19.7 Diarrhea, unspecified; R11.2 Nausea with vomiting, unspecified; E86.0 Dehydration; K21.9 Gastro-esophageal reflux disease without esophagitis; J45.909 Unspecified asthma, uncomplicated; Z79.82 Long term (current) use of aspirin; Z79.51 Long term (current) use of inhaled steroids; Z79.899 Other long term (current) drug therapy; Z88.8 Allergy status to other drugs, medicaments and biological substances; Z91.011 Allergy to milk products; Z88.5 Allergy status to narcotic agent; Z91.012 Allergy to eggs; Z87.19 Personal history of other diseases of the digestive system; Z93.2 Ileostomy status
CPT/HCPCS: 36415; 80053; 82150; 83690; 85025; 81001; 87086; 96372; 96374; 96361; 99284; J0500; J2405

== ENCOUNTER → 2019-06-21 | Outpatient (CLI) | payer MEDICAID ==
--- NOTE | 2019-06-21 14:43 | CT ---
EXAMINATION TYPE: CT abdomen pelvis w con DATE OF EXAM: 06/21/2019 COMPARISON: None HISTORY: abdominal pain CT DLP: 515.5 mGycm CONTRAST: CT scan of the abdomen and pelvis is performed with Oral Contrast and with IV Contrast, patient injec beverley with 100 mL of Isovue 300. FINDINGS: LUNG BASES-: No visible nodule. No infiltrate. LIVER/GB: The gallbladder is absent. No space occupying hepatic lesion. Biliary tree is of normal caliber. PANCREAS: No inflammation. No distinct mass. SPLEEN: No splenic enlargement. No lesion seen. Splenic granulomas identified. ADRENALS: No nodule. No thickening. KIDNEYS/BLADDER: No hydronephrosis. No nephrolithiasis. No distinct renal mass. Urinary bladder g rossly unremarkable. BOWEL: There is evidence of colectomy with right lower quadrant ostomy. There is no evidence for obst ruction. There are dilated loops of small bowel proximally measuring up to 3.4 cm. GENITAL ORGANS: No gross abnormality. LYMPH NODES: No greater than 1cm abdominal or pelvic lymph nodes are appreciated. AORTA: No significant abnormality. OSSEOUS STRUCTURES: No significant abnormality is seen. OTHER: No significant additional abnormality is seen. IMPRESSION: 1. Proximal dilatation of small bowel loops without evidence for obstruction May BE on the basis of i leus. Correlate clinically. Contrast is noted to flow into the patient's ostomy.
== END | disposition home or self-care (01) ==
LOC: RADCTMAIN 12:18
PROVIDERS: ATTEND Nurse Practitioner Gerontology
DX: R10.9 Unspecified abdominal pain (principal)
CPT/HCPCS: 74177; Q9967

== ENCOUNTER → 2019-07-04 | Outpatient (CLI) | payer MEDICAID ==
--- NOTE | 2019-07-04 10:42 | FL ---
EXAMINATION TYPE: FL UGI air w small bowel DATE OF EXAM: 07/04/2019 COMPARISON: Correlation CT 06/21/2019 HISTORY: 59-year-old female small bowel obstruction, nausea and vomiting. Patient with prior colectom y and right lower quadrant ileostomy due to history of IBD. Patient also reports a history of some ty pe of gastric rerouting procedure in the remote past. TECHNIQUE: A double contrast UGI study is performed with small bowel follow through. FINDINGS: Bill Hiker image of the abdomen shows no gross abnormality. Gentle scoliosis is present. Cholecystectomy c lips. Additional surgical clips in the pelvis. The esophagus shows normal course and caliber. No fixed narrowing. However, there is subtle mucosal i rregularity along the distal esophagus above the GE junction. Normal motility and emptying into the stomach. There is a tiny sliding hiatal hernia demonstrated. Valsalva and positional maneuvers could only elic it trace gastroesophageal reflux. The stomach shows normal distensibility, peristalsis, but with mild generalized fold thickening. No u lcer or suspicious filling defect is seen. There is a communication from the inferior aspect of the distal gastric body to the fourth portion of the duodenum. A couple small diverticula are present in this region. There is marked distention of the duodenal C-loop proximal to this communication. Additional small d iverticulum along the third portion of the duodenum. In addition, on the first portion of the duodenu m on the SEWE[facility] imaging, there is a persistent polypoid filling defect approximated at 1 cm with smooth contour noted, for example, refer to page 51 and 76. The small bowel study shows relatively fast transit through the right lower quadrant ileostomy at 15 minutes. There is normal mucosal fold pattern throughout the small bowel. There is no evidence of any strictu re or filling defect noted. IMPRESSION: 1. Tiny sliding hiatal hernia with trace gastroesophageal reflux visualized. 2. Mild mucosal irregularity along the distal esophagus above the GE junction. Direct visualization r ecommended to assess for esophagitis or Clark's esophagus changes given patient's reported long-sta nding gastroesophageal reflux. 3. Generalized gastric fold thickening can be seen with chronic gastritis. 4. A smoothly marginated polypoid filling defect involving the first portion of the duodenum. Possibl e mesenchymal lesion or polyp. Refer to page 51 of 76. This can also be assessed with direct visualiz ation. 5. Either a postsurgical or fistulous communication from the inferior aspect of the distal gastric cherri dy to the fourth portion of the duodenum. Clinically correlate. 6. Marked distention of the C-loop proximal to this communication and suggestion of relative caliber narrowing of the duodenojejunal junction just beyond the communication. A stenosis or narrowing from adhesions are possible. No obstruction. 7. Small bowel transit to the right lower quadrant ileostomy at 15 minutes. No other discrete small b owel abnormality seen.
== END | disposition home or self-care (01) ==
LOC: RADFLMAIN 07:19
PROVIDERS: ATTEND Surgery
DX: K44.9 Diaphragmatic hernia without obstruction or gangrene (principal); K22.8 Other specified diseases of esophagus; K21.9 Gastro-esophageal reflux disease without esophagitis; K31.89 Other diseases of stomach and duodenum; R14.0 Abdominal distension (gaseous); Z98.890 Other specified postprocedural states
CPT/HCPCS: 74240; 74248

== ENCOUNTER 2019-07-11 13:12 | Day surgery (SDC) | payer MEDICAID ==
[2019-07-11] MEDS ORDERED: LACTATED RINGERS 1,000 ML IV ONE (13:55)
[2019-07-11] MEDS ORDERED: LIDOCAINE 1% (10MG/ML) FOR IV START INTRADERMA ONE (13:56)
[2019-07-11] MEDS ORDERED: PROPOFOL 10 MG/ML 20 ML VIAL IV ONE (14:00)
[2019-07-11 14:02] VITALS: TEMP 97.7
--- NOTE | 2019-07-11 14:32 | P.PCN ---
Date of Procedure: 07/11/19 Procedure(s) Performed: Preoperative Dx: Epigastric pain Postoperative Dx: Gastritis, anastomotic stricture, esophagitis Procedure: EGD with Bx Anesthesia: Sedation Endoscopist: Dr. Kenyon Specimens: Gastroenterostomy, antrum, esophagus Endoscopic Procedure: The patient was on the endoscopy table in the left decubitus position. The Olympus gastroscope was inserted into the oropharynx and passed under direct visualization to the stomach. The patient is a large volume of bile and a small amount of solid material within the stomach. I would estimate 3-500 mL of bilious fluid was evacuated. I was able to advance the scope through the pylorus which had some mild narrowing without difficulty. The first and second portion of the duodenum appeared normal. There were no inflammatory changes or mass lesions. I was unable to make the turn and fully evaluate the third portion of the duodenum. The scope was withdrawn. The stomach was inspected. This included retroflexion. There was mild gastritis present. No hiatal hernia was seen. Biopsy of the antrum took place. There was a anastomosis between the body of the stomach and the small bowel. This opening was likewise somewhat narrowed. I was able to advance the scope into the efferent limb. No abnormalities were present there. The scope was withdrawn. I was able to visualize the affarent limb however I could not advance the scope into that area. There was a stricture at that anastomosis which was biopsied. This was labeled gastroenterostomy. The scope was withdrawn further. The esophagus was inspected. The patient had evidence of distal esophagitis with multiple scattered linear erosions involving the distal 10 cm of the esophagus. These were non-circumferential. These were biopsied. The proximal esophagus appeared normal. The patient was then taken to the recovery room in stable condition per anesthesia guidelines. Recommendations: Await biopsy results. Continue antiacid therapy. Patient may benefit from what no jejunostomy. We'll discuss with hepatobiliary service.
[2019-07-11 15:00] VITALS: BP 122/73; PULSE 78; RESP 18
== END 2019-07-11 15:21 | disposition home or self-care (01) ==
LOC: ORWHC2ENDO 13:12
PROVIDERS: ATTEND Surgery
DX: K29.50 Unspecified chronic gastritis without bleeding (principal); K52.9 Noninfective gastroenteritis and colitis, unspecified; K22.10 Ulcer of esophagus without bleeding; K91.89 Other postprocedural complications and disorders of digestive system; K94.20 Gastrostomy complication, unspecified; K56.600 Partial intestinal obstruction, unspecified as to cause; J45.909 Unspecified asthma, uncomplicated; K21.0 Gastro-esophageal reflux disease with esophagitis; Z88.5 Allergy status to narcotic agent; Z88.8 Allergy status to other drugs, medicaments and biological substances; Z79.51 Long term (current) use of inhaled steroids; Z79.899 Other long term (current) drug therapy; Z90.49 Acquired absence of other specified parts of digestive tract
CPT/HCPCS: 88305; 43239; J2704

== ENCOUNTER 2019-08-17 18:20 | Emergency (ER) | payer MEDICAID ==
[2019-08-17 18:33] VITALS: RESP 18
[2019-08-17 19:44] LABS: Basophils % (A) 1 %; Eosinophils # (A) 0.3 k/uL (0-0.7); Eosinophils % (A) 3 %; HCT 38.3 % (34.0-46.0); HGB 12.8 gm/dL (11.4-16.0); Lymphocytes # (A) 2.5 k/uL (1.0-4.8); Lymphocytes % (A) 30 %; MCH 28.5 pg (25.0-35.0); MCHC 33.4 g/dL (31.0-37.0); MCV 85.4 fL (80.0-100.0); Mean Platelet Volume 7.2; Monocytes # (A) 0.5 k/uL (0-1.0); Monocytes % (A) 6 %; Neutrophils # (A) 4.9 k/uL (1.3-7.7); Neutrophils % (A) 58 %; Platelet Count 364 k/uL (150-450); RBC 4.48 m/uL (3.80-5.40); RDW 12.5 % (11.5-15.5); WBC 8.4 k/uL (3.8-10.6)
[2019-08-17 19:53] LABS: ALT 23 U/L (4-34); AST 27 U/L (14-36); African American GFR (CKD) >90 (>60 ml/min/1.73 sqM); Albumin 3.7 g/dL (3.5-5.0); Alkaline Phosphatase 84 U/L (38-126); Anion Gap 5 mmol/L; Blood Urea Nitrogen 11 mg/dL (7-17); Calcium 9.1 mg/dL (8.4-10.2); Carbon Dioxide 24 mmol/L (22-30); Chloride 106 mmol/L (98-107); Glucose 83 mg/dL (74-99); Magnesium 1.8 mg/dL (1.6-2.3); Non-African American GFR(CKD) 88 (>60 ml/min/1.73 sqM); Potassium 4.1 mmol/L (3.5-5.1); Sodium 135 mmol/L (137-145); Total Bilirubin 0.3 mg/dL (0.2-1.3); Total Protein 6.4 g/dL (6.3-8.2)
[2019-08-17 20:00] LABS: INR 0.9 (<1.2); Prothrombin Time 9.7 sec (9.0-12.0)
--- NOTE | 2019-08-17 20:06 | XR ---
EXAMINATION TYPE: XR chest 1V DATE OF EXAM: 08/17/2019 COMPARISON: 10/03/2011 HISTORY: Short of breath TECHNIQUE: FINDINGS: Heart and mediastinum are normal. Lungs are clear. Diaphragm is normal. Bony thorax is norm al. There are chest leads. IMPRESSION: Normal chest. No change.
[2019-08-17 20:09] LABS: Partial Thromboplastin Time 21.6 sec (22.0-30.0)
[2019-08-17 20:40] VITALS: BP 112/57; PULSE 84; TEMP 98.8
--- NOTE | 2019-08-17 20:43 | ED ---
General Adult HPI - General Chief complaint: Chest Pain Stated complaint: fever/chest pressure Time Seen by Provider: 08/17/19 18:30 Source: patient Mode of arrival: ambulatory Limitations: no limitations - History of Present Illness Initial comments: The patient is a 59-year-old female past medical history of inflammatory bowel disease who presents emergency room with intermittent chest pressure for the past 2 weeks. She denies any provocative factors. Does admit to feeling mildly short of breath and today developed a low-grade fever. She is also had a nonproductive cough. Denies chest pain, nausea, vomiting or diaphoresis. No previous cardiac history. She has never had a stress test. No history of DVT or PE. No calf pain or swelling. 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 She told Dr. Mckenzie about her symptoms and he recommended that she come to the emergency room for evaluation of covid. She denies exertional shortness of katelyn ath. No ripping or tearing sensation to her back. There are no alleviating, precipitating or modifying factors - Related Data Home Medications Medication Instructions Recorded Confirmed Aspirin 81 mg PO DAILY 11/20/14 07/11/19 Azelastine HCl 2 spray EA NOSTRIL DAILY 11/20/14 07/11/19 Cyanocobalamin [Vitamin B-12] 1.5 ml IM QMONTH 11/20/14 07/11/19 Fexofenadine HCl [Maria Luz Allergy] 180 mg PO DAILY 11/20/14 07/11/19 Levalbuterol Hfa Inhaler [Xopenex 1 puff INHALATION DAILY PRN 11/20/14 07/11/19 Hfa Inhaler] Mometasone/Formoterol [Dulera 200 2 puff INHALATION QAM 11/20/14 07/11/19 Mcg/5 Mcg Inhaler] Montelukast [Singulair] 10 mg PO QAM 11/20/14 07/11/19 Glucosam/Chond/Hyalu/Cf Borate 1 each PO DAILY 04/27/18 07/11/19 [Move Free Joint Health Tablet] Multivitamin [Multivitamins Adult 1 each PO DAILY 04/27/18 07/11/19 Gummies] Famotidine [Pepcid] 1 tab PO BID 07/11/19 07/11/19 Previous Rx's Medication Instructions Recorded Acetaminophen-Codeine 300-30mg 2 each PO Q6HR PRN #24 tab 06/07/18 [Tylenol w/codeine #3] Ibuprofen [Motrin] 600 mg PO Q6HR PRN #30 tab 06/07/18 Dicyclomine [Bentyl] 20 mg PO TID #30 tablet 06/20/19 Allergies Allergy/AdvReac Type Severity Reaction Status Date / Time egg Allergy Nausea & Verified 08/17/19 18:33 Vomiting & Diarrhea esomeprazole magnesium Allergy Abdominal Verified 08/17/19 18:33 [From Nexium] Pain hydrocodone [From [place]] Allergy Anaphylaxis Verified 08/17/19 18:33 hydromorphone HCl Allergy severe Verified 08/17/19 18:33 [From Dilaudid] bradycardia karaya gum Allergy sultana Verified 08/17/19 18:33 [From Karaya Paste] lactose Allergy Nausea & Verified 08/17/19 18:33 Vomiting & Diarrhea omeprazole Allergy Abdominal Verified 08/17/19 18:33 Pain pantoprazole sodium Allergy Abdominal Verified 08/17/19 18:33 [From Protonix] Pain prednisone Allergy Rapid Verified 08/17/19 18:33 Heart Rate,psychotic methylphenidate HCl AdvReac Chest Pain Verified 08/17/19 18:33 [From Ritalin] Review of Systems ROS Statement: Those systems with pertinent positive or pertinent negative responses have been documented in the HPI. ROS Other: All systems not noted in ROS Statement are negative. Past Medical History Past Medical History: Asthma, GERD/Reflux Additional Past Medical History / Comment(s): post menopausal bleeding, Hx colitis,ulcerative colitis,Crohn's,mono x2,swine flu 2011,rt elbow fx,rt wrist fx History of Any Multi-Drug Resistant Organisms: None Reported Past Surgical History: Bowel Resection, Cholecystectomy, Hysterectomy, Uterine Ablation Additional Past Surgical History / Comment(s): ileostomy,mult bowel resections with clips present, x2,sinus surgery Past Anesthesia/Blood Transfusion Reactions: No Reported Reaction Additional Past Anesthesia/Blood Transfusion Reaction / Comment(s): blood transfusion 1981-no problems,Takes a while to wake up from anesthesia, nephew had seizure after anesthesia, no malignant hyperthermia that she knows of Past Psychological History: No Psychological Hx Reported Smoking Status: Never smoker Past Alcohol Use History: None Reported Past Drug Use History: None Reported - Past Family History Father Family Medical History: Congestive Heart Failure (CHF) General Exam Limitations: no limitations General appearance: alert, in no apparent distress Head exam: Present: atraumatic, normocephalic, normal inspection Eye exam: Present: normal appearance, PERRL, EOMI. Absent: scleral icterus, conjunctival injection, periorbital swelling ENT exam: Present: normal exam, mucous membranes moist Neck exam: Present: normal inspection. Absent: tenderness, meningismus, lymp hadenopathy Respiratory exam: Present: normal lung sounds bilaterally. Absent: respiratory distress, wheezes, rales, rhonchi, stridor Cardiovascular Exam: Present: regular rate, normal rhythm, normal heart sounds. Absent: systolic murmur, diastolic murmur, rubs, gallop, clicks GI/Abdominal exam: Present: soft, normal bowel sounds. Absent: distended, tenderness, guarding, rebound, rigid Extremities exam: Present: normal inspection, full ROM, normal capillary refill. Absent: tenderness, pedal edema, joint swelling, calf tenderness Back exam: Present: normal inspection Neurological exam: Present: alert, oriented X3, CN II-XII intact Psychiatric exam: Present: normal affect, normal mood Skin exam: Present: warm, dry, intact, normal color. Absent: rash Course Vital Signs 08/17/19 08/17/19 08/17/19 18:30 18:49 19:00 Temperature 98.7 F 98.8 F Pulse Rate 89 81 Respiratory 18 18 Rate Blood Pressure 133/80 131/77 O2 Sat by Pulse 97 97 96 Oximetry 08/17/19 08/17/19 08/17/19 19:30 20:00 20:30 Temperature Pulse Rate 93 78 84 Respiratory 18 18 18 Rate Blood Pressure 133/72 131/65 112/57 O2 Sat by Pulse 98 96 96 Oximetry 08/17/19 20:55 Temperature 98.8 F Pulse Rate 84 Respiratory 18 Rate Blood Pressure 112/57 O2 Sat by Pulse 96 Oximetry EKG Findings - EKG Comments: EKG Findings:: EKG demonstrates normal sinus rhythm with ventricular rate of 77. VA 148. QRS 88. QTC 441. J-point elevation in the inferior leads. No acute ST segment depression Medical Decision Making - Medical Decision Making Upon arrival the patient is placed into room 3. A thorough history and physical exam is performed. The patient does not have any current chest pressure at this time. She is swabbed for Covid. The EKG was performed. Laboratory studies were performed. Laboratory studies are remarkable for a sodium of 135. Coronavirus is not detected. Chest x-ray demonstrates no acute findings. I discussed results of the patient. She is satisfied with her evaluation at this time. I do believe that the patient would benefit from an echo and stress test as she is over the age of 51 and has not had a cardiac evaluation. The patient did agree to this. She states she'll call Dr. Mckenzie in the morning to schedule this. I informed her that if she has any new or worsening symptoms she should return to the emergency room. Patient was then discharged home in stable condition - Lab Data Result diagrams: 08/17/19 19:08 08/17/19 19:08 Lab Results 08/17/19 08/17/19 08/17/19 Range/Units 19:08 19:08 19:08 WBC 8.4 (3.8-10.6) k/uL RBC 4.48 (3.80-5.40) m/uL Hgb 12.8 (11.4-16.0) gm/dL Hct 38.3 (34.0-46.0) % MCV 85.4 (80.0-100.0) fL MCH 28.5 (25.0-35.0) pg MCHC 33.4 (31.0-37.0) g/dL RDW 12.5 (11.5-15.5) % Plt Count 364 (150-450) k/uL Neutrophils % 58 % Lymphocytes % 30 % Monocytes % 6 % Eosinophils % 3 % Basophils % 1 % Neutrophils # 4.9 (1.3-7.7) k/uL Lymphocytes # 2.5 (1.0-4.8) k/uL Monocytes # 0.5 (0-1.0) k/uL Eosinophils # 0.3 (0-0.7) k/uL Basophils # 0.0 (0-0.2) k/uL PT 9.7 (9.0-12.0) sec INR 0.9 (<1.2) APTT 21.6 L (22.0-30.0) sec Sodium (137-145) mmol/L Potassium (3.5-5.1) mmol/L Chloride (98-107) mmol/L Carbon Dioxide (22-30) mmol/L Anion Gap mmol/L BUN (7-17) mg/dL Creatinine (0.52-1.04) mg/dL Est GFR (CKD-EPI)AfAm (>60 ml/min/1.73 sqM) Est GFR (CKD-EPI)NonAf (>60 ml/min/1.73 sqM) Glucose (74-99) mg/dL Calcium (8.4-10.2) mg/dL Magnesium (1.6-2.3) mg/dL Total Bilirubin (0.2-1.3) mg/dL AST (14-36) U/L ALT (4-34) U/L Alkaline Phosphatase (38-126) U/L Troponin I (0.000-0.034) ng/mL Total Protein (6.3-8.2) g/dL Albumin (3.5-5.0) g/dL Coronavirus (PCR) Not Detected (Not Detectd) 08/17/19 08/17/19 Range/Units 19:08 19:08 WBC (3.8-10.6) k/uL RBC (3.80-5.40) m/uL Hgb (11.4-16.0) gm/dL Hct (34.0-46.0) % MCV (80.0-100.0) fL MCH (25.0-35.0) pg MCHC (31.0-37.0) g/dL RDW (11.5-15.5) % Plt Count (150-450) k/uL Neutrophils % % Lymphocytes % % Monocytes % % Eosinophils % % Basophils % % Neutrophils # (1.3-7.7) k/uL Lymphocytes # (1.0-4.8) k/uL Monocytes # (0-1.0) k/uL Eosinophils # (0-0.7) k/uL Basophils # (0-0.2) k/uL PT (9.0-12.0) sec INR (<1.2) APTT (22.0-30.0) sec Sodium 135 L (137-145) mmol/L Potassium 4.1 (3.5-5.1) mmol/L Chloride 106 (98-107) mmol/L Carbon Dioxide 24 (22-30) mmol/L Anion Gap 5 mmol/L BUN 11 (7-17) mg/dL Creatinine 0.75 (0.52-1.04) mg/dL Est GFR (CKD-EPI)AfAm >90 (>60 ml/min/1.73 sqM) Est GFR (CKD-EPI)NonAf 88 (>60 ml/min/1.73 sqM) Glucose 83 (74-99) mg/dL Calcium 9.1 (8.4-10.2) mg/dL Magnesium 1.8 (1.6-2.3) mg/dL Total Bilirubin 0.3 (0.2-1.3) mg/dL AST 27 (14-36) U/L ALT 23 (4-34) U/L Alkaline Phosphatase 84 (38-126) U/L Troponin I <0.012 (0.000-0.034) ng/mL Total Protein 6.4 (6.3-8.2) g/dL Albumin 3.7 (3.5-5.0) g/dL Coronavirus (PCR) (Not Detectd) Disposition Clinical Impression: Cough, Chest pressure Disposition: HOME SELF-CARE Condition: Stable Instructions (If sedation given, give patient instructions): Chest Pain (ED) Additional Instructions: Please follow-up with Dr. Mckenzie for further evaluation. I do recommend a stress test and echo. Return to the emergency room for any new or worsening symptoms Is patient prescribed a controlled substance at d/c from ED?: No Referrals: Isak Milligan MD [Primary Care Provider] - 1-2 days Time of Disposition: 20:43
== END 2019-08-17 21:00 | disposition home or self-care (01) ==
LOC: EC 18:20
DX: R07.89 Other chest pain (principal); R05 Cough; R06.02 Shortness of breath; J45.909 Unspecified asthma, uncomplicated; K21.9 Gastro-esophageal reflux disease without esophagitis; Z79.82 Long term (current) use of aspirin; Z79.899 Other long term (current) drug therapy; Z91.012 Allergy to eggs; Z88.8 Allergy status to other drugs, medicaments and biological substances; Z88.5 Allergy status to narcotic agent; Z91.048 Other nonmedicinal substance allergy status
CPT/HCPCS: 36415; 71045; 80053; 83735; 84484; 85025; 85610; 85730; 87635; 93005; 99285

== ENCOUNTER → 2019-11-05 | Outpatient (CLI) | payer MEDICAID, OTHER | END | disposition home or self-care (01) | LOC: LABWHC1 12:13 | PROVIDERS: ATTEND Pediatrics Pediatric Infectious Diseases | DX: Z11.59 Encounter for screening for other viral diseases (principal) ==

== ENCOUNTER → 2019-11-07 | Outpatient (CLI) | payer MEDICAID | END | disposition home or self-care (01) | LOC: LABWHC1 10:45 | PROVIDERS: ATTEND Pediatrics Pediatric Infectious Diseases | DX: Z20.828 Contact with and (suspected) exposure to other viral communicable diseases (principal) | CPT/HCPCS: U0003; C9803 ==

== ENCOUNTER 2020-01-14 16:25 | Emergency (ER) | payer MEDICAID ==
[2020-01-14] MEDS ORDERED: SODIUM CHLORIDE 0.9% 1,000 ML IV STA ×2 (16:29)
[2020-01-14 16:30] VITALS: RESP 18
--- NOTE | 2020-01-14 16:34 | ED ---
Abdominal Pain HPI - General Chief Complaint: Abdominal Pain Stated Complaint: abd pain, surgery 6wks ago Time Seen by Provider: 01/14/20 16:28 Source: patient, RN notes reviewed, old records reviewed Mode of arrival: ambulatory Limitations: no limitations - History of Present Illness Initial Comments: This is a 51-year-old female DF she presents safe for evaluation regards to abdominal pain history of chronic abdominal pain 6 weeks postop of reflux s urgery. Patient is improved reflux surgery seemed to calm well but nonerythematous increased pain especially pain with eating eating and drinking. No recent travel history or sick contacts no fevers. Bowel movements are normal for her baseline and no vomiting or weight loss MD Complaint: abdominal pain -: week(s) Location: periumbilical, epigastric Radiation: epigastric Migration to: epigastric Severity: moderate Severity scale (1-10): 7 Consistency: intermittent Improves With: nothing Worsens With: eating Associated Symptoms: nausea, vomiting - Related Data Home Medications Medication Instructions Recorded Confirmed Aspirin 81 mg PO DAILY 11/20/14 07/11/19 Azelastine HCl 2 spray EA NOSTRIL DAILY 11/20/14 07/11/19 Cyanocobalamin [Vitamin B-12] 1.5 ml IM QMONTH 11/20/14 07/11/19 Fexofenadine HCl [Maria Luz Allergy] 180 mg PO DAILY 11/20/14 07/11/19 Levalbuterol Hfa Inhaler [Xopenex 1 puff INHALATION DAILY PRN 11/20/14 07/11/19 Hfa Inhaler] Mometasone/Formoterol [Dulera 200 2 puff INHALATION QAM 11/20/14 07/11/19 Mcg/5 Mcg Inhaler] Montelukast [Singulair] 10 mg PO QAM 11/20/14 07/11/19 Glucosam/Chond/Hyalu/Cf Borate 1 each PO DAILY 04/27/18 07/11/19 [Move Free Joint Health Tablet] Multivitamin [Multivitamins Adult 1 each PO DAILY 04/27/18 07/11/19 Gummies] Famotidine [Pepcid] 1 tab PO BID 07/11/19 07/11/19 Previous Rx's Medication Instructions Recorded Acetaminophen-Codeine 300-30mg 2 each PO Q6HR PRN #24 tab 06/07/18 [Tylenol w/codeine #3] Ibuprofen [Motrin] 600 mg PO Q6HR PRN #30 tab 06/07/18 Dicyclomine [Bentyl] 20 mg PO TID #30 tablet 06/20/19 Allergies Allergy/AdvReac Type Severity Reaction Status Date / Time egg Allergy Nausea & Verified 08/17/19 18:33 Vomiting & Diarrhea esomeprazole magnesium Allergy Abdominal Verified 08/17/19 18:33 [From Nexium] Pain hydrocodone [From [place]] Allergy Anaphylaxis Verified 08/17/19 18:33 hydromorphone HCl Allergy severe Verified 08/17/19 18:33 [From Dilaudid] bradycardia karaya gum Allergy sultana Verified 08/17/19 18:33 [From Karaya Paste] lactose Allergy Nausea & Verified 08/17/19 18:33 Vomiting & Diarrhea omeprazole Allergy Abdominal Verified 08/17/19 18:33 Pain pantoprazole sodium Allergy Abdominal Verified 08/17/19 18:33 [From Protonix] Pain prednisone Allergy Rapid Verified 08/17/19 18:33 Heart Rate,psychotic methylphenidate HCl AdvReac Chest Pain Verified 08/17/19 18:33 [From Ritalin] Review of Systems ROS Statement: Those systems with pertinent positive or pertinent negative responses have been documented in the HPI. ROS Other: All systems not noted in ROS Statement are negative. Past Medical History Past Medical History: Asthma, GERD/Reflux Additional Past Medical History / Comment(s): post menopausal bleeding, Hx colitis,ulcerative colitis,Crohn's,mono x2,swine flu 2011,rt elbow fx,rt wrist fx History of Any Multi-Drug Resistant Organisms: None Reported Past Surgical History: Bowel Resection, Cholecystectomy, Hysterectomy, Uterine Ablation Additional Past Surgical History / Comment(s): ileostomy,mult bowel resections with clips present, x2,sinus surgery Past Anesthesia/Blood Transfusion Reactions: No Reported Reaction Additional Past Anesthesia/Blood Transfusion Reaction / Comment(s): blood transfusion 1981-no problems,Takes a while to wake up from anesthesia, nephew had seizure after anesthesia, no malignant hyperthermia that she knows of Past Psychological History: No Psychological Hx Reported Smoking Status: Never smoker Past Alcohol Use History: None Reported Past Drug Use History: None Reported - Past Family History Father Family Medical History: Congestive Heart Failure (CHF) General Exam Limitations: no limitations General appearance: alert, in no apparent distress Head exam: Present: atraumatic, normocephalic, normal inspection Eye exam: Present: normal appearance, PERRL, EOMI. Absent: scleral icterus, conjunctival injection, periorbital swelling ENT exam: Present: normal exam, mucous membranes moist Neck exam: Present: normal inspection. Absent: tenderness, meningismus, lymphadenopathy Respiratory exam: Present: normal lung sounds bilaterally. Absent: respiratory distress, wheezes, rales, rhonchi, stridor Cardiovascular Exam: Present: regular rate, normal rhythm, normal heart sounds. Absent: systolic murmur, diastolic murmur, rubs, gallop, clicks GI/Abdominal exam: Present: soft, normal bowel sounds. Absent: distended, tenderness, guarding, rebound, rigid Extremities exam: Present: normal inspection, full ROM, normal capillary refill. Absent: tenderness, pedal edema, joint swelling, calf tenderness Back exam: Present: normal inspection Neurological exam: Present: alert, oriented X3, CN II-XII intact Psychiatric exam: Present: normal affect, normal mood Skin exam: Present: warm, dry, intact, normal color. Absent: rash Course Vital Signs 01/14/20 16:27 Temperature 97.8 F Pulse Rate 82 Respiratory 18 Rate Blood Pressure 138/86 O2 Sat by Pulse 99 Oximetry - Reevaluation(s) Reevaluation #1: 01/14/20 19:02 medical records reviewed Reevaluation #2: 01/14/20 19:02 Symptoms are improved here in the ER - Consultations Consultation #1: Spoke with Dr. Kenyon will follow-up patient with original surgeon Medical Decision Making - Medical Decision Making 51 female DF for evaluation of postop abdominal pain, patient follow-up with her surgeon, pain is controlled here in the ER with normal labs and computed tomography scan - Lab Data Result diagrams: 01/14/20 16:51 01/14/20 16:51 Lab Results 01/14/20 01/14/20 01/14/20 Range/Units 16:51 16:51 16:51 WBC 8.9 (3.8-10.6) k/uL RBC 4.86 (3.80-5.40) m/uL Hgb 13.8 (11.4-16.0) gm/dL Hct 42.2 (34.0-46.0) % MCV 86.8 (80.0-100.0) fL MCH 28.3 (25.0-35.0) pg MCHC 32.6 (31.0-37.0) g/dL RDW 12.9 (11.5-15.5) % Plt Count 435 (150-450) k/uL Neutrophils % 67 % Lymphocytes % 24 % Monocytes % 3 % Eosinophils % 5 % Basophils % 1 % Neutrophils # 6.0 (1.3-7.7) k/uL Lymphocytes # 2.1 (1.0-4.8) k/uL Monocytes # 0.3 (0-1.0) k/uL Eosinophils # 0.4 (0-0.7) k/uL Basophils # 0.1 (0-0.2) k/uL Sodium 135 L (137-145) mmol/L Potassium 4.2 (3.5-5.1) mmol/L Chloride 101 (98-107) mmol/L Carbon Dioxide 25 (22-30) mmol/L Anion Gap 9 mmol/L BUN 7 (7-17) mg/dL Creatinine 0.75 (0.52-1.04) mg/dL Est GFR (CKD-EPI)AfAm >90 (>60 ml/min/1.73 sqM) Est GFR (CKD-EPI)NonAf 88 (>60 ml/min/1.73 sqM) Glucose 105 H (74-99) mg/dL Plasma Lactic Acid Abner (0.7-2.0) mmol/L Calcium 9.7 (8.4-10.2) mg/dL Total Bilirubin 0.6 (0.2-1.3) mg/dL AST 33 (14-36) U/L ALT 34 (4-34) U/L Alkaline Phosphatase 108 (38-126) U/L Total Protein 7.3 (6.3-8.2) g/dL Albumin 4.5 (3.5-5.0) g/dL Amylase 59 (30-110) U/L Lipase 97 (23-300) U/L Urine Color Colorless Urine Appearance Clear (Clear) Urine pH 5.0 (5.0-8.0) Ur Specific [place] 1.003 (1.001-1.035) Urine Protein Negative (Negative) Urine Glucose (UA) Negative (Negative) Urine Ketones Negative (Negative) Urine Blood Negative (Negative) Urine Nitrite Negative (Negative) Urine Bilirubin Negative (Negative) Urine Urobilinogen <2.0 (<2.0) mg/dL Ur Leukocyte Esterase Small H (Negative) Urine RBC 1 (0-5) /hpf Urine WBC 1 (0-5) /hpf Urine Mucus Rare H (None) /hpf 01/14/20 Range/Units 16:51 WBC (3.8-10.6) k/uL RBC (3.80-5.40) m/uL Hgb (11.4-16.0) gm/dL Hct (34.0-46.0) % MCV (80.0-100.0) fL MCH (25.0-35.0) pg MCHC (31.0-37.0) g/dL RDW (11.5-15.5) % Plt Count (150-450) k/uL Neutrophils % % Lymphocytes % % Monocytes % % Eosinophils % % Basophils % % Neutrophils # (1.3-7.7) k/uL Lymphocytes # (1.0-4.8) k/uL Monocytes # (0-1.0) k/uL Eosinophils # (0-0.7) k/uL Basophils # (0-0.2) k/uL Sodium (137-145) mmol/L Potassium (3.5-5.1) mmol/L Chloride (98-107) mmol/L Carbon Dioxide (22-30) mmol/L Anion Gap mmol/L BUN (7-17) mg/dL Creatinine (0.52-1.04) mg/dL Est GFR (CKD-EPI)AfAm (>60 ml/min/1.73 sqM) Est GFR (CKD-EPI)NonAf (>60 ml/min/1.73 sqM) Glucose (74-99) mg/dL Plasma Lactic Acid Abner 1.6 (0.7-2.0) mmol/L Calcium (8.4-10.2) mg/dL Total Bilirubin (0.2-1.3) mg/dL AST (14-36) U/L ALT (4-34) U/L Alkaline Phosphatase (38-126) U/L Total Protein (6.3-8.2) g/dL Albumin (3.5-5.0) g/dL Amylase (30-110) U/L Lipase (23-300) U/L Urine Color Urine Appearance (Clear) Urine pH (5.0-8.0) Ur Specific [place] (1.001-1.035) Urine Protein (Negative) Urine Glucose (UA) (Negative) Urine Ketones (Negative) Urine Blood (Negative) Urine Nitrite (Negative) Urine Bilirubin (Negative) Urine Urobilinogen (<2.0) mg/dL Ur Leukocyte Esterase (Negative) Urine RBC (0-5) /hpf Urine WBC (0-5) /hpf Urine Mucus (None) /hpf - Radiology Data Radiology results: report reviewed (CT head and pelvis negative for acute disease), image reviewed Disposition Clinical Impression: Abdominal pain Disposition: HOME SELF-CARE Condition: Good Instructions (If sedation given, give patient instructions): Abdominal Pain (ED) Is patient prescribed a controlled substance at d/c from ED?: No Referrals: Isak Milligan MD [Primary Care Provider] - 1-2 days
[2020-01-14 17:01] LABS: Basophils # (A) 0.1 k/uL (0-0.2); Basophils % (A) 1 %; Eosinophils # (A) 0.4 k/uL (0-0.7); Eosinophils % (A) 5 %; HCT 42.2 % (34.0-46.0); HGB 13.8 gm/dL (11.4-16.0); Lymphocytes # (A) 2.1 k/uL (1.0-4.8); Lymphocytes % (A) 24 %; MCH 28.3 pg (25.0-35.0); MCHC 32.6 g/dL (31.0-37.0); MCV 86.8 fL (80.0-100.0); Mean Platelet Volume 6.9; Monocytes # (A) 0.3 k/uL (0-1.0); Monocytes % (A) 3 %; Neutrophils % (A) 67 %; Platelet Count 435 k/uL (150-450); RBC 4.86 m/uL (3.80-5.40); RDW 12.9 % (11.5-15.5); WBC 8.9 k/uL (3.8-10.6)
[2020-01-14 17:08] LABS: ALT 34 U/L (4-34); AST 33 U/L (14-36); African American GFR (CKD) >90 (>60 ml/min/1.73 sqM); Albumin 4.5 g/dL (3.5-5.0); Alkaline Phosphatase 108 U/L (38-126); Amylase 59 U/L (30-110); Anion Gap 9 mmol/L; Blood Urea Nitrogen 7 mg/dL (7-17); Calcium 9.7 mg/dL (8.4-10.2); Carbon Dioxide 25 mmol/L (22-30); Chloride 101 mmol/L (98-107); Glucose 105 mg/dL (74-99); Non-African American GFR(CKD) 88 (>60 ml/min/1.73 sqM); Potassium 4.2 mmol/L (3.5-5.1); Sodium 135 mmol/L (137-145); Total Bilirubin 0.6 mg/dL (0.2-1.3); Total Protein 7.3 g/dL (6.3-8.2)
[2020-01-14 17:10] LABS: Appearance,Urine Clear (Clear); Bilirubin,Urine Negative (Negative); Blood,Urine Negative (Negative); Color,Urine Colorless; Glucose,Urine (UA) Negative (Negative); Ketones,Urine Negative (Negative); Leukocyte Esterase,Urine Small (Negative); Mucus,Urine Rare /hpf; Nitrite,Urine Negative (Negative); Protein,Urine Negative (Negative); RBC,Urine 1 /hpf (0-5); Specific Gravity,Urine 1.003 (1.001-1.035); Urobilinogen,Urine <2.0 mg/dL (<2.0); WBC,Urine 1 /hpf (0-5)
--- NOTE | 2020-01-14 18:05 | CT ---
EXAMINATION TYPE: CT abdomen pelvis w con DATE OF EXAM: 01/14/2020 COMPARISON: 06/21/2019 HISTORY: Abdominal pain post op x6 weeks CT DLP: 648.2 mGycm Automated exposure control for dose reduction was used. CONTRAST: Performed with IV Contrast, patient injected with 100 mL of Isovue 300. There is mild subsegmental atelectasis at the right lung base. There is no pleural effusion. Heart si ze is normal. There is no pericardial effusion. Liver and spleen appear normal. Bile ducts are not dilated. There are clips from cholecystectomy. Thomas creas appears normal. There are scattered calcified splenic granulomata. Stomach is intact. There is apparent gastric bariatric surgery. There is surgical clips on the posterior aspect of the stomach. There is no adrenal mass. Kidneys show satisfactory contrast opacification. There is no hydronephrosi s. Ureters are not dilated. Bladder distends smoothly. There is no inguinal hernia. There is metallic density in the soft tissues in the subcutaneous fat in the medial left buttock. There are also multi ple similar metallic densities anterior to the sacrum on the left side. These are apparently multiple surgical clips. There is hysterectomy. There is ileostomy in the right lower quadrant. There is smal l parastomal hernia that contains a loop of ileum without incarceration. There is total colectomy. Th ere is no evidence of a bowel obstruction. There is no free air. There is no ascites. There is no mesenteric edema. Lumbar vertebra have normal alignment. Posterior elements are intact. Bony pelvis is intact. IMPRESSION: Previous surgery. No sign of acute abdomen and pelvis. Small parastomal hernia. This appears similar to old exam. No evidence of a bowel obstruction.
[2020-01-14 19:32] VITALS: BP 123/64; PULSE 80; TEMP 98.2
== END 2020-01-14 18:45 | disposition home or self-care (01) ==
LOC: EC 16:25
DX: R10.9 Unspecified abdominal pain (principal); J45.909 Unspecified asthma, uncomplicated; K21.9 Gastro-esophageal reflux disease without esophagitis; Z79.82 Long term (current) use of aspirin; Z79.51 Long term (current) use of inhaled steroids; Z79.899 Other long term (current) drug therapy; Z88.8 Allergy status to other drugs, medicaments and biological substances; Z88.5 Allergy status to narcotic agent; Z91.012 Allergy to eggs; Z91.011 Allergy to milk products; Z87.19 Personal history of other diseases of the digestive system; Z90.49 Acquired absence of other specified parts of digestive tract; Z98.890 Other specified postprocedural states
CPT/HCPCS: 36415; 80053; 82150; 83605; 83690; 85025; 81001; 74177; 99284; 96360; 96361; Q9967

== ENCOUNTER 2020-03-11 01:41 | Inpatient (IN) | payer MEDICAID ==
[2020-03-11] MEDS ORDERED: MORPHINE SULFATE 4 MG/ML SYRINGE IV STA ×2 (02:00→03:02)
[2020-03-11] MEDS ORDERED: SODIUM CHLORIDE 0.9% 1,000 ML IV STA (02:00)
[2020-03-11] MEDS ORDERED: ONDANSETRON 4 MG/2 ML VIAL IVP STA (02:00)
--- NOTE | 2020-03-11 02:02 | ED ---
Chest Pain HPI - General Chief Complaint: Chest Pain Stated Complaint: Chest Pain, Abd Pain Time Seen by Provider: 03/11/20 01:48 Source: patient Mode of arrival: wheelchair Limitations: no limitations - History of Present Illness Initial Comments: this patient's 60-year-old woman who has been having some chronic epigastric pain related to ulcers and to a recentbiliary diversion, who presents for worsening of the pain. Patient states that after having eaten dinner tonight, probably 6 hours or so ago, she had worsening of her symptoms. The patient indicates epigastric area and then states that she has had some in the substernal as well. She has also had nausea and vomiting accompanying the pain. She tried home medication without relief. MD Complaint: other -: hour(s) Onset: after eating Pain Location: substernal, epigastric Pain Radiation: none Quality: aching Consistency: constant Improves With: nothing Worsens With: nothing Anginal Symptoms: nausea, vomiting Treatments Prior to Arrival: other (Zofran) - Related Data Home Medications Medication Instructions Recorded Confirmed Aspirin 81 mg PO DAILY 11/20/14 03/11/20 Azelastine HCl 1 spray EA NOSTRIL DAILY 11/20/14 03/11/20 Cyanocobalamin [Vitamin B-12] 1.5 ml IM QMONTH 11/20/14 03/11/20 Levalbuterol Hfa Inhaler [Xopenex 1 puff INHALATION DAILY PRN 11/20/14 03/11/20 Hfa Inhaler] Mometasone/Formoterol [Dulera 200 2 puff INHALATION RT-BID 11/20/14 03/11/20 Mcg/5 Mcg Inhaler] Montelukast [Singulair] 10 mg PO QAM 11/20/14 03/11/20 Glucosam/Chond/Hyalu/Cf Borate 1 tab PO DAILY 04/27/18 03/11/20 [Move Free Joint Health Tablet] Multivitamin [Multivitamins Adult 1 tab PO DAILY 04/27/18 03/11/20 Gummies] Famotidine [Pepcid] 40 mg PO BID 07/11/19 03/11/20 ALPRAZolam [Xanax] 0.25 mg PO BID PRN 03/11/20 03/11/20 Acetaminophen-Codeine 300-30mg 2 tab PO Q4H PRN 03/11/20 03/11/20 [Tylenol w/codeine #3] Calcium Gummies 1 tab PO DAILY 03/11/20 03/11/20 Cholecalciferol [Vitamin D3 (25 1,000 unit PO DAILY 03/11/20 03/11/20 Mcg = 1000 Iu)] Escitalopram [Lexapro] 5 mg PO DAILY 03/11/20 03/11/20 Fexofenadine HCl [Maria Luz Allergy] 180 mg PO DAILY 03/11/20 03/11/20 Gabapentin [Neurontin] 300 mg PO TID 03/11/20 03/11/20 Magnesium 250 mg PO DAILY 03/11/20 03/11/20 Metoclopramide [Reglan] 10 mg PO Q8H PRN 03/11/20 03/11/20 Ondansetron [Zofran] 4 mg PO Q12HR PRN 03/11/20 03/11/20 Sucralfate [Carafate] 1 gm PO QID 03/11/20 03/11/20 methocarbamoL [Robaxin] 500 mg PO Q8H PRN 03/11/20 03/11/20 Allergies Allergy/AdvReac Type Severity Reaction Status Date / Time esomeprazole magnesium Allergy Abdominal Verified 03/11/20 08:17 [From Nexium] Pain hydrocodone [From [place]] Allergy Anaphylaxis Verified 03/11/20 08:17 hydromorphone HCl Allergy severe Verified 03/11/20 08:17 [From Dilaudid] bradycardia karaya gum Allergy sultana Verified 03/11/20 08:17 [From Karaya Paste] lactose Allergy Nausea & Verified 03/11/20 08:17 Vomiting & Diarrhea omeprazole Allergy Abdominal Verified 03/11/20 08:17 Pain pantoprazole sodium Allergy Abdominal Verified 03/11/20 08:17 [From Protonix] Pain prednisone Allergy Rapid Verified 03/11/20 08:17 Heart Rate,psychotic methylphenidate HCl AdvReac Chest Pain Verified 03/11/20 08:17 [From Ritalin] Review of Systems ROS Statement: Those systems with pertinent positive or pertinent negative responses have been documented in the HPI. ROS Other: All systems not noted in ROS Statement are negative. Constitutional: Denies: fever, chills Respiratory: Denies: cough, dyspnea Cardiovascular: Reports: as per HPI, chest pain. Denies: palpitations, orthopnea, edema Gastrointestinal: Reports: abdominal pain, nausea, vomiting. Denies: diarrhea, constipation, hematemesis, melena, hematochezia Genitourinary: Denies: dysuria, hematuria Musculoskeletal: Denies: back pain Skin: Denies: rash Neurological: Denies: headache, weakness, numbness EKG Findings - EKG Results: EKG: interpreted by LANA MCADAMSL, sinus rhythm (rate 81 bpm), normal axis, normal QRS, normal ST/T, no acute changes - NE, Pacemaker, Normal: Normal tracing: normal tracing Past Medical History Past Medical History: Asthma, GERD/Reflux Additional Past Medical History / Comment(s): post menopausal bleeding, Hx colitis,ulcerative colitis,Crohn's,mono x2,swine flu 2011,rt elbow fx,rt wrist fx History of Any Multi-Drug Resistant Organisms: None Reported Past Surgical History: Bowel Resection, Cholecystectomy, Hysterectomy, Uterine Ablation Additional Past Surgical History / Comment(s): ileostomy,mult bowel resections with clips present, x2,sinus surgery Past Anesthesia/Blood Transfusion Reactions: No Reported Reaction Additional Past Anesthesia/Blood Transfusion Reaction / Comment(s): blood transfusion 1981-no problems,Takes a while to wake up from anesthesia, nephew had seizure after anesthesia, no malignant hyperthermia that she knows of Past Psychological History: No Psychological Hx Reported Smoking Status: Never smoker Past Alcohol Use History: None Reported Past Drug Use History: None Reported - Past Family History Father Family Medical History: Congestive Heart Failure (CHF) Mother Family Medical History: GERD/Reflux, Hypertension General Exam Limitations: no limitations General appearance: alert, in no apparent distress Head exam: Present: atraumatic, normocephalic Eye exam: Present: normal appearance. Absent: scleral icterus, conjunctival injection Neck exam: Present: normal inspection Respiratory exam: Present: normal lung sounds bilaterally. Absent: respiratory distress, wheezes, rales, rhonchi, stridor Cardiovascular Exam: Present: regular rate, normal rhythm, normal heart sounds. Absent: systolic murmur, diastolic murmur, rubs, gallop GI/Abdominal exam: Present: soft. Absent: distended, tenderness, guarding, rebound, rigid, mass, pulsatile mass, hernia Extremities exam: Present: normal inspection, normal capillary refill. Absent: pedal edema, calf tenderness Back exam: Present: normal inspection Neurological exam: Present: alert Skin exam: Present: warm, dry, intact, normal color. Absent: rash Course Vital Signs 03/11/20 03/11/20 03/11/20 01:45 03:20 05:04 Temperature 98.9 F Pulse Rate 87 80 82 Respiratory 24 15 17 Rate Blood Pressure 140/81 141/76 139/78 O2 Sat by Pulse 99 98 99 Oximetry Disposition Clinical Impression: Abdominal pain Disposition: ADMITTED IP TO THIS HOSP Condition: Fair Is patient prescribed a controlled substance at d/c from ED?: No
[2020-03-11 02:21] LABS: Basophils # (A) 0.1 k/uL (0-0.2); Basophils % (A) 2 %; Eosinophils # (A) 0.3 k/uL (0-0.7); Eosinophils % (A) 4 %; HCT 39.6 % (34.0-46.0); HGB 13.4 gm/dL (11.4-16.0); Lymphocytes # (A) 2.7 k/uL (1.0-4.8); Lymphocytes % (A) 28 %; MCH 29.1 pg (25.0-35.0); MCHC 33.9 g/dL (31.0-37.0); MCV 85.7 fL (80.0-100.0); Mean Platelet Volume 7.1; Monocytes # (A) 0.3 k/uL (0-1.0); Monocytes % (A) 4 %; Neutrophils # (A) 5.8 k/uL (1.3-7.7); Neutrophils % (A) 61 %; Platelet Count 347 k/uL (150-450); RBC 4.61 m/uL (3.80-5.40); WBC 9.4 k/uL (3.8-10.6)
--- NOTE | 2020-03-11 02:27 | XR ---
EXAM: XR Abdomen, 2 Views CLINICAL HISTORY: ITS.REASON XR Reason: abdominal pain TECHNIQUE: Frontal view of the abdomen/pelvis with upright view of the abdomen. COMPARISON: No relevant prior studies available. FINDINGS: Intraperitoneal space: No free air. Gastrointestinal tract: Unremarkable. Organs: Evidence of prior cholecystectomy. Bones/joints: Unremarkable. Soft tissues: Surgical clips with the pelvis. Vasculature: Probable phleboliths within the pelvis. IMPRESSION: No acute findings in the abdomen or pelvis.
[2020-03-11 02:42] LABS: ALT 24 U/L (4-34); AST 26 U/L (14-36); African American GFR (CKD) >90 (>60 ml/min/1.73 sqM); Albumin 4.1 g/dL (3.5-5.0); Alkaline Phosphatase 101 U/L (38-126); Amylase 80 U/L (30-110); Anion Gap 8 mmol/L; Blood Urea Nitrogen 17 mg/dL (7-17); Calcium 9.5 mg/dL (8.4-10.2); Carbon Dioxide 24 mmol/L (22-30); Chloride 104 mmol/L (98-107); Glucose 112 mg/dL (74-99); Lipase 202 U/L (23-300); Non-African American GFR(CKD) 80 (>60 ml/min/1.73 sqM); Potassium 4.1 mmol/L (3.5-5.1); Sodium 136 mmol/L (137-145); Total Bilirubin 0.7 mg/dL (0.2-1.3); Total Protein 6.9 g/dL (6.3-8.2)
[2020-03-11 04:12] LABS: Appearance,Urine Cloudy (Clear); Bilirubin,Urine Negative (Negative); Blood,Urine Negative (Negative); Color,Urine Colorless; Glucose,Urine (UA) Negative (Negative); Hyaline Casts,Urine 1 /lpf (0-2); Ketones,Urine Negative (Negative); Leukocyte Esterase,Urine Negative (Negative); Mucus,Urine Rare /hpf; Nitrite,Urine Negative (Negative); Protein,Urine Negative (Negative); Specific Gravity,Urine 1.005 (1.001-1.035); Urobilinogen,Urine <2.0 mg/dL (<2.0); WBC,Urine 1 /hpf (0-5)
[2020-03-11] MEDS ORDERED: NALOXONE 0.4 MG/ML 1 ML VIAL IV PRN (04:27)
[2020-03-11] MEDS ORDERED: ONDANSETRON 4 MG/2 ML VIAL IVP PRN (04:27)
[2020-03-11] MEDS ORDERED: ALBUTEROL NEBULIZED 2.5 MG/3 ML INHALATION PRN (04:34)
[2020-03-11] MEDS ORDERED: IBUPROFEN 600 MG TAB PO PRN (04:34)
--- NOTE | 2020-03-11 04:52 | CT ---
EXAM: CT Abdomen and Pelvis Without Intravenous Contrast CLINICAL HISTORY: ITS.REASON CT Reason: abdominal pain TECHNIQUE: Axial computed tomography images of the abdomen and pelvis without intravenous contrast. CTDI is 7.97 mGy and DLP is 418.5 mGy-cm. This CT exam was performed using one or more of the following dose reduction techniques: automated exposure control, adjustment of the mA and/or kV according to patient size, and/or use of iterative reconstruction technique. COMPARISON: No relevant prior studies available. FINDINGS: Lung bases: Mild cylindrical bronchiectasis within the right lower lobe. ABDOMEN: Liver: Subcentimeter subcapsular lesion seen within the right hepatic lobe, which is too small to characterize. Gallbladder and bile ducts: Gallbladder is surgically absent. Pancreas: Unremarkable. Spleen: Calcified granulomata within the spleen Adrenals: Unremarkable. Kidneys and ureters: Unremarkable. Stomach and bowel: Post surgical changes within the bowel with a right lower quadrant ostomy. No bowel obstruction. PELVIS: Appendix: Appendix is not visualized may be surgically absent. Bladder: Unremarkable. Reproductive: Uterus is surgically absent. ABDOMEN and PELVIS: Intraperitoneal space: Unremarkable. Bones/joints: Levoscoliosis. No acute fracture. No dislocation. Soft tissues: Unremarkable. Vasculature: Unremarkable. Lymph nodes: Unremarkable. IMPRESSION: No acute findings in the abdomen or pelvis.
[2020-03-11] MEDS: SODIUM CHLORIDE 0.9% 1,000 ML IV SCH ×3 (05:33→18:33)
[2020-03-11] MEDS: MORPHINE SULFATE 4 MG/ML SYRINGE IV PRN ×2 (07:35→19:38)
[2020-03-11] MEDS ORDERED: SYMBICORT 160-4.5 MCG INHALER INHALATION SCH (08:00)
[2020-03-11] MEDS ORDERED: MONTELUKAST 10 MG TAB PO SCH (09:00)
[2020-03-11] MEDS ORDERED: FAMOTIDINE 20 MG TAB PO SCH ×2 (09:00→21:00)
[2020-03-11] MEDS ORDERED: AZELASTINE 137MCG/SPRAY EA NOSTRIL SCH (09:00)
[2020-03-11] MEDS: DICYCLOMINE 20 MG TAB PO SCH ×2 (09:27→16:59)
[2020-03-11] MEDS ORDERED: ALPRAZolam 0.25 MG TAB PO PRN (10:35)
[2020-03-11] MEDS ORDERED: METOCLOPRAMIDE 10 MG TAB PO PRN (10:35)
[2020-03-11] MEDS ORDERED: Acetaminophen-Codeine 300-30mg TAB PO PRN (10:35)
[2020-03-11] MEDS ORDERED: LORATADINE 10 MG TAB PO SCH (10:45)
[2020-03-11] MEDS: SUCRALFATE 1 GM TAB PO SCH ×2 (11:07→17:01)
[2020-03-11] MEDS: GABAPENTIN 300 MG CAP PO SCH ×2 (11:07→16:59)
--- NOTE | 2020-03-11 12:53 | P.HPIM ---
History of Present Illness H&P Date: 03/11/20 HISTORY OF PRESENT ILLNESS This is a 60-year-old female patient of Dr. Milligan with past medical history of GERD, endometriosis, generalized anxiety disorder and recurrent depression, peripheral neuropathy and chronic back pain, mild intermittent asthma Crohn's disease status post ostomy with several bowel resections and subtotal colectomy in 1981. Ostomy was moved 1. 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 Following that, heartburn and discomfort were resolved but patient developed a new pain that went from the epigastric area to the pelvic and through to her back. She underwent EGD 6-[address] [facility] at [place] and found to have u lcers in the esophagus and duodenum. She has been on Carafate 4 times daily and Pepcid 40 mg twice daily but with no improvement of her pain. She came in for evaluation. CT of the abdomen and pelvis showed no acute findings. EKG was sinus rhythm with no acute ST changes. She was afebrile, heart rate 87, blood pressure 140/81, pulse ox 99% on room air. CBC was normal. Sodium 136 and blood sugar 112 otherwise CMP was normal. Troponin was negative. Patient was started on IV fluids, clear liquid diet and placed on the surgical unit. She has been seen this morning by general surgery with recommendations for transfer to [facility]. Patient is agreeable and upper caser making ar rangements. REVIEW OF SYSTEMS Constitutional: No fever, no chills, no night sweats. No weight change. No weakness, fatigue or lethargy. No daytime sleepiness. EENT: No headache. No blurred vision or double vision, no loss of vision. No loss of Hearing, no ringing in the ears, no dizziness. No nasal drainage or congestion. No epistaxis. No sore throat. Lungs: No shortness of breath, cough, no sputum production. No wheezing. Cardiovascular: No chest pain, no lower extremity edema. No palpitations. No paroxysmal nocturnal dyspnea. No orthopnea. No lightheadedness or dizziness. No syncopal episodes. Abdominal: Reports abdominal pain. No nausea, vomiting. No diarrhea. No constipation. No bloody or tarry stools. Reports o loss of appetite. Genitourinary: No dysuria, increased frequency, urgency. No urinary retention. Musculoskeletal: No myalgias. No muscle weakness, no gait dysfunction, no frequent falls. No back pain. No neck pain. Integumentary: No wounds, no lesions. No rash or pruritus. No unusual bruising. No change in hair or nails. Neurologic: No aphasia. No facial droop. No change in mentation. No head injury. No headache. No paralysis. No paresthesia. Psychiatric: No depression. No anxiety. No mood swings. Endocrine: No abnormal blood sugars. No weight change. No excessive sweating or thirst. No cold intolerance. SOCIAL HISTORY Patient is a lifelong nonsmoker. No illicit drug use or alcohol use. She is and lives at home with her . She works at [employer] at [employer]. FAMILY HISTORY Mother is alive in her 80s with no major medical problems. Father at 74 from heart failure. She has one sister with Crohn's. One sister and 2 brothers with no major medical problems. She has 2 children with no major medical problems. PHYSICAL EXAMINATION Gen: This is a 60-year-old female. She is resting in bed appears to be comfortable and in no acute distress. HEENT: Head is atraumatic, normocephalic. Pupils equal, round. Sclerae is anicteric. NECK: Supple. No JVD. No lymphadenopathy. No thyromegaly. LUNGS: Clear to auscultation. No wheezes or rhonchi. No intercostal retractions. HEART: Regular rate and rhythm. No murmur. ABDOMEN: Soft. Bowel sounds are present. No masses. Mild epigastric and ge neralized tenderness. EXTREMITIES: No pedal edema. No calf tenderness. Dorsalis pedis +2 bilateral ly. NEUROLOGICAL: Patient is awake, alert and oriented x3. Cranial nerves 2 through 12 are grossly intact. ASSESSMENT AND PLAN 1. Abdominal pain of unclear etiology with recent EGD and treated for esophageal and duodenal ulcers. General surgery consult appreciated. GI consult was added. Plan is for transfer to [facility] if accepting physician can be obtained. Patient will be continued on Pepcid 40 mg twice daily, Carafate 4 times daily, IV fluids, clear liquids. 2. History of Crohn's disease with multiple bowel resections and subtotal colectomy with ostomy and revision. 3. Mild intermittent asthma, stable without exacerbation. Continue inhalers, Singulair 4. Endometriosis status post hysterectomy. 5. Generalized anxiety disorder and recurrent depression. Continue Xanax 0.5 milligrams twice daily as needed, Lexapro 5 mg daily. 6. Chronic back pain and neuropathy. Continue gabapentin 300 mg 3 times daily. 7. DVT prophylaxis. Heparin subcu. Patient will be admitted to the hospital for a minimum of 2 night stay. DISCHARGE PLAN Transfer to [facility]. Impression and plan of care have been directed as dictated by the signing physician. Elida Curry nurse practitioner acting as scribe for signing physician. Past Medical History Past Medical History: Asthma, GERD/Reflux Additional Past Medical History / Comment(s): post menopausal bleeding, Hx colitis,ulcerative colitis,Crohn's,mono x2,swine flu 2011,rt elbow fx,rt wrist fx History of Any Multi-Drug Resistant Organisms: None Reported Past Surgical History: Bowel Resection, Cholecystectomy, Hysterectomy, Uterine Ablation Additional Past Surgical History / Comment(s): ileostomy,mult bowel resections with clips present, x2,sinus surgery Past Anesthesia/Blood Transfusion Reactions: No Reported Reaction Additional Past Anesthesia/Blood Transfusion Reaction / Comment(s): blood transfusion 1981-no problems,Takes a while to wake up from anesthesia, nephew had seizure after anesthesia, no malignant hyperthermia that she knows of Past Psychological History: No Psychological Hx Reported Smoking Status: Never smoker Past Alcohol Use History: None Reported Past Drug Use History: None Reported - Past Family History Father Family Medical History: Congestive Heart Failure (CHF) Mother Family Medical History: GERD/Reflux, Hypertension Medications and Allergies Home Medications Medication Instructions Recorded Confirmed Type Aspirin 81 mg PO DAILY 11/20/14 03/11/20 History Azelastine HCl 1 spray EA NOSTRIL DAILY 11/20/14 03/11/20 History Cyanocobalamin [Vitamin B-12] 1.5 ml IM QMONTH 11/20/14 03/11/20 History Levalbuterol Hfa Inhaler [Xopenex 1 puff INHALATION DAILY PRN 11/20/14 03/11/20 History Hfa Inhaler] Mometasone/Formoterol [Dulera 200 2 puff INHALATION RT-BID 11/20/14 03/11/20 History Mcg/5 Mcg Inhaler] Montelukast [Singulair] 10 mg PO QAM 11/20/14 03/11/20 History Glucosam/Chond/Hyalu/Cf Borate 1 tab PO DAILY 04/27/18 03/11/20 History [Move Free Joint Health Tablet] Multivitamin [Multivitamins Adult 1 tab PO DAILY 04/27/18 03/11/20 History Gummies] Famotidine [Pepcid] 40 mg PO BID 07/11/19 03/11/20 History ALPRAZolam [Xanax] 0.25 mg PO BID PRN 03/11/20 03/11/20 History Acetaminophen-Codeine 300-30mg 1 tab PO QID PRN 03/11/20 03/11/20 History [Tylenol w/codeine #3] Calcium Gummies 1 tab PO DAILY 03/11/20 03/11/20 History Cholecalciferol [Vitamin D3 (25 1,000 unit PO DAILY 03/11/20 03/11/20 History Mcg = 1000 Iu)] Escitalopram [Lexapro] 5 mg PO DAILY 03/11/20 03/11/20 History Fexofenadine HCl [Maria Luz Allergy] 180 mg PO DAILY 03/11/20 03/11/20 History Gabapentin [Neurontin] 300 mg PO TID 03/11/20 03/11/20 History Magnesium 250 mg PO DAILY 03/11/20 03/11/20 History Metoclopramide [Reglan] 10 mg PO QID PRN 03/11/20 03/11/20 History Ondansetron [Zofran] 4 mg PO Q4H PRN 03/11/20 03/11/20 History Sucralfate [Carafate] 1 gm PO QID 03/11/20 03/11/20 History methocarbamoL [Robaxin] 500 - 1,000 mg PO Q6H PRN 03/11/20 03/11/20 History Allergies Allergy/AdvReac Type Severity Reaction Status Date / Time esomeprazole magnesium Allergy Abdominal Verified 03/11/20 08:17 [From Nexium] Pain hydrocodone [From [facility]] Allergy Anaphylaxis Verified 03/11/20 08:17 hydromorphone HCl Allergy severe Verified 03/11/20 08:17 [From Dilaudid] bradycardia karaya gum Allergy sultana Verified 03/11/20 08:17 [From Karaya Paste] lactose Allergy Nausea & Verified 03/11/20 08:17 Vomiting & Diarrhea omeprazole Allergy Abdominal Verified 03/11/20 08:17 Pain pantoprazole sodium Allergy Abdominal Verified 03/11/20 08:17 [From Protonix] Pain prednisone Allergy Rapid Verified 03/11/20 08:17 Heart Rate,psychotic methylphenidate HCl AdvReac Chest Pain Verified 03/11/20 08:17 [From Ritalin] Physical Exam Vitals: Vital Signs Temp Pulse Pulse Resp BP BP Pulse Ox 03/11/20 05:17 98.3 F 71 18 130/77 95 03/11/20 05:04 82 17 139/78 99 03/11/20 03:20 80 15 141/76 98 03/11/20 01:45 98.9 F 87 24 140/81 99 Intake and Output 03/10/20 03/11/20 03/11/20 22:59 06:59 14:59 Intake Total 50 Balance 50 Intake: Oral 50 Other: Weight 65.1 kg Results CBC & Chem 7: 03/11/20 02:03 03/11/20 02:03 Labs: Abnormal Lab Results - Last 24 Hours (Table) 03/11/20 03/11/20 Range/Units 02:03 04:06 Sodium 136 L (137-145) mmol/L Glucose 112 H (74-99) mg/dL Urine Appearance Cloudy H (Clear) Urine Mucus Rare H (None) /hpf Thrombosis Risk Factor Assmnt - Choose All That Apply Any of the Below Risk Factors Present?: Yes Each Factor Represents 1 point: Age 41-60 years Other Risk Factors: Yes Other congenital or acquired thrombophilia - If yes, enter type in comment: No Thrombosis Risk Factor Assessment Total Risk Factor Score: 1 Thrombosis Risk Factor Assessment Level: Low Risk
--- NOTE | 2020-03-11 14:36 | P.GSCN ---
History of Present Illness Consult date: 03/11/20 History of present illness: CHIEF COMPLAINT: Epigastric abdominal pain HISTORY OF PRESENT ILLNESS: This is a 60-year-old female with a known past medical history ulcerative colitis and Crohn's with a prior bowel resections and ileostomy. Also history of biliary diversion at [facility] in November 2019 patient reported a pyloric valve blockage. The surgeon was Dr. Oliveira. She is also was found to have esophageal ulcers and stomach ulcers. She had an EGD in December 2019 that also confirmed ulcers of the esophagus and duodenum. She was placed on Carafate and Pepcid. This was completed at [facility] By Dr. Sheffield. Patient reports she is been having epigastric pain for about 2 months even after these procedures. She has had increasing pain over the last 3 days. She reports that it's a sharp pain in her epigastric area she rates it 10 out of 10. On pain medication is helping. She had a computed tomography scan of the abdomen that showed no acute changes. She denies any fever or chills or sweats. She has had some nausea and one episode of vomiting in the ER yesterday. She denies any bowel movement changes. PAST MEDICAL HISTORY: See list. PAST SURGICAL HISTORY: See list. MEDICATIONS: See list. ALLERGIES: See list. SOCIAL HISTORY: No illicit drug use. REVIEW OF SYSTEMS: CONSTITUTIONAL: Denies fever or chills. HEENT: Denies blurred vision, vision changes, or eye pain. Denies hemoptysis CARDIOVASCULAR: Denies chest pain or pressure. RESPIRATORY: No shortness of breath. GASTROINTESTINAL: See HPI for pertinent findings HEMATOLOGIC: Denies bleeding disorders. GENITOURINARY: Denies any blood in urine or increased urinary frequency. SKIN: Denies pruitis. Denies rash. PHYSICAL EXAM: VITAL SIGNS: Reviewed GENERAL: Well-developed in no acute distress. HEENT: No sclera icterus. Extraocular movements grossly intact. Moist buccal mucosa. Head is atraumatic, normocephalic. No nasal drainage. ABDOMEN: Soft. Nondistended. Epigastric tenderness. Ileostomy left lower abdomen. Noted old incision along the abdomen healed nicely NEUROLOGIC: Alert and oriented. Cranial nerves II through XII grossly intact. LABORATORY DATA: WBC 9.4 hemoglobin 13.4 Lipase and LFTs normal UA negative IMAGING: CT abdomen no acute findings ASSESSMENT: 1. Epigastric abdominal pain. Patient has had recent EGD in December which had revealed esophageal and duodenal ulcers. 2. History of biliary diversion in November 2019 at [facility] 3. History of Crohn's disease with multiple bowel resections and ileostomy PLAN: -Recommend that patient is transferred to [place] where she has had her prior abdominal surgeries and most recent EGD -Continue pain medication as needed -Continue Carafate and Pepcid Thank you for this consultation Physician Insecticide Maker note has been reviewed by physician. Signing provider agrees with the documented findings, assessment, and plan of care. Past Medical History Past Medical History: Asthma, GERD/Reflux Additional Past Medical History / Comment(s): post menopausal bleeding, Hx colitis,ulcerative colitis,Crohn's,mono x2,swine flu 2011,rt elbow fx,rt wrist fx History of Any Multi-Drug Resistant Organisms: None Reported Past Surgical History: Bowel Resection, Cholecystectomy, Hysterectomy, Uterine Ablation Additional Past Surgical History / Comment(s): ileostomy,mult bowel resections with clips present, x2,sinus surgery Past Anesthesia/Blood Transfusion Reactions: No Reported Reaction Additional Past Anesthesia/Blood Transfusion Reaction / Comm: blood transfusion 1981-no problems,Takes a while to wake up from anesthesia, nephew had seizure after anesthesia, no malignant hyperthermia that she knows of Past Psychological History: No Psychological Hx Reported Smoking Status: Never smoker Past Alcohol Use History: None Reported Past Drug Use History: None Reported - Past Family History Father Family Medical History: Congestive Heart Failure (CHF) Mother Family Medical History: GERD/Reflux, Hypertension Medications and Allergies Home Medications Medication Instructions Recorded Confirmed Type Aspirin 81 mg PO DAILY 11/20/14 03/11/20 History Azelastine HCl 1 spray EA NOSTRIL DAILY 11/20/14 03/11/20 History Cyanocobalamin [Vitamin B-12] 1.5 ml IM QMONTH 11/20/14 03/11/20 History Levalbuterol Hfa Inhaler [Xopenex 1 puff INHALATION DAILY PRN 11/20/14 03/11/20 History Hfa Inhaler] Mometasone/Formoterol [Dulera 200 2 puff INHALATION RT-BID 11/20/14 03/11/20 History Mcg/5 Mcg Inhaler] Montelukast [Singulair] 10 mg PO QAM 11/20/14 03/11/20 History Glucosam/Chond/Hyalu/Cf Borate 1 tab PO DAILY 04/27/18 03/11/20 History [Move Free Joint Health Tablet] Multivitamin [Multivitamins Adult 1 tab PO DAILY 04/27/18 03/11/20 History Gummies] Famotidine [Pepcid] 40 mg PO BID 07/11/19 03/11/20 History ALPRAZolam [Xanax] 0.25 mg PO BID PRN 03/11/20 03/11/20 History Acetaminophen-Codeine 300-30mg 1 tab PO QID PRN 03/11/20 03/11/20 History [Tylenol w/codeine #3] Calcium Gummies 1 tab PO DAILY 03/11/20 03/11/20 History Cholecalciferol [Vitamin D3 (25 1,000 unit PO DAILY 03/11/20 03/11/20 History Mcg = 1000 Iu)] Escitalopram [Lexapro] 5 mg PO DAILY 03/11/20 03/11/20 History Fexofenadine HCl [Maria Luz Allergy] 180 mg PO DAILY 03/11/20 03/11/20 History Gabapentin [Neurontin] 300 mg PO TID 03/11/20 03/11/20 History Magnesium 250 mg PO DAILY 03/11/20 03/11/20 History Metoclopramide [Reglan] 10 mg PO QID PRN 03/11/20 03/11/20 History Ondansetron [Zofran] 4 mg PO Q4H PRN 03/11/20 03/11/20 History Sucralfate [Carafate] 1 gm PO QID 03/11/20 03/11/20 History methocarbamoL [Robaxin] 500 - 1,000 mg PO Q6H PRN 03/11/20 03/11/20 History Allergies Allergy/AdvReac Type Severity Reaction Status Date / Time esomeprazole magnesium Allergy Abdominal Verified 03/11/20 08:17 [From Nexium] Pain hydrocodone [From [place]] Allergy Anaphylaxis Verified 03/11/20 08:17 hydromorphone HCl Allergy severe Verified 03/11/20 08:17 [From Dilaudid] bradycardia karaya gum Allergy sultana Verified 03/11/20 08:17 [From Karaya Paste] lactose Allergy Nausea & Verified 03/11/20 08:17 Vomiting & Diarrhea omeprazole Allergy Abdominal Verified 03/11/20 08:17 Pain pantoprazole sodium Allergy Abdominal Verified 03/11/20 08:17 [From Protonix] Pain prednisone Allergy Rapid Verified 03/11/20 08:17 Heart Rate,psychotic methylphenidate HCl AdvReac Chest Pain Verified 03/11/20 08:17 [From Ritalin] Surgical - Exam Vital Signs Temp Pulse Resp BP Pulse Ox 98.9 F 87 24 140/81 99 03/11/20 01:45 03/11/20 01:45 03/11/20 01:45 03/11/20 01:45 03/11/20 01:45 Results - Labs 03/11/20 02:03 03/11/20 02:03 Abnormal Lab Results - Last 24 Hours (Table) 03/11/20 03/11/20 Range/Units 02:03 04:06 Sodium 136 L (137-145) mmol/L Glucose 112 H (74-99) mg/dL Urine Appearance Cloudy H (Clear) Urine Mucus Rare H (None) /hpf Diabetes panel 03/11/20 Range/Units 02:03 Sodium 136 L (137-145) mmol/L Potassium 4.1 (3.5-5.1) mmol/L Chloride 104 (98-107) mmol/L Carbon Dioxide 24 (22-30) mmol/L BUN 17 (7-17) mg/dL Creatinine 0.81 (0.52-1.04) mg/dL Glucose 112 H (74-99) mg/dL Calcium 9.5 (8.4-10.2) mg/dL AST 26 (14-36) U/L ALT 24 (4-34) U/L Alkaline Phosphatase 101 (38-126) U/L Total Protein 6.9 (6.3-8.2) g/dL Albumin 4.1 (3.5-5.0) g/dL Calcium panel 03/11/20 Range/Units 02:03 Calcium 9.5 (8.4-10.2) mg/dL Albumin 4.1 (3.5-5.0) g/dL Pituitary panel 03/11/20 Range/Units 02:03 Sodium 136 L (137-145) mmol/L Potassium 4.1 (3.5-5.1) mmol/L Chloride 104 (98-107) mmol/L Carbon Dioxide 24 (22-30) mmol/L BUN 17 (7-17) mg/dL Creatinine 0.81 (0.52-1.04) mg/dL Glucose 112 H (74-99) mg/dL Calcium 9.5 (8.4-10.2) mg/dL Adrenal panel 03/11/20 Range/Units 02:03 Sodium 136 L (137-145) mmol/L Potassium 4.1 (3.5-5.1) mmol/L Chloride 104 (98-107) mmol/L Carbon Dioxide 24 (22-30) mmol/L BUN 17 (7-17) mg/dL Creatinine 0.81 (0.52-1.04) mg/dL Glucose 112 H (74-99) mg/dL Calcium 9.5 (8.4-10.2) mg/dL Total Bilirubin 0.7 (0.2-1.3) mg/dL AST 26 (14-36) U/L ALT 24 (4-34) U/L Alkaline Phosphatase 101 (38-126) U/L Total Protein 6.9 (6.3-8.2) g/dL Albumin 4.1 (3.5-5.0) g/dL
[2020-03-11 16:39] VITALS: BP 112/65; PULSE 69; RESP 16; TEMP 98
[2020-03-11] MEDS ORDERED: ESCITALOPRAM 5 MG TAB PO ONE (19:30)
[2020-03-11] MEDS ORDERED: HEPARIN SODIUM,PORCINE 5,000 UNIT/ML 1 ML VIAL SQ SCH (21:00)
[2020-03-12] MEDS ORDERED: ASPIRIN 81 MG PO SCH (09:00)
[2020-03-12] MEDS ORDERED: MULTIVITAMINS, THERA 1 EACH TAB PO SCH (09:00)
[2020-03-12] MEDS ORDERED: MAGNESIUM OXIDE 400 MG TAB PO SCH (09:00)
[2020-03-12] MEDS ORDERED: ESCITALOPRAM 5 MG TAB PO SCH ×2 (09:00)
[2020-03-12] MEDS ORDERED: CHOLECALCIFEROL 1,000 UNIT TAB PO SCH (09:00)
[2020-04-06] MEDS ORDERED: CYANOCOBALAMIN 1,000 MCG/ML 1 ML VIAL IM SCH (09:00)
== END 2020-03-11 21:13 | disposition short-term general hospital (02) | DRG 392 ==
LOC: EC 01:41 → 6PED 04:29 → OBSVTOIN 12:50 → UNDODISOB 21:13
PROVIDERS: ADMIT Internal Medicine Geriatric Medicine; ATTEND Internal Medicine Geriatric Medicine
DX: R10.9 Unspecified abdominal pain (principal); F33.9 Major depressive disorder, recurrent, unspecified; K50.90 Crohn's disease, unspecified, without complications; J45.20 Mild intermittent asthma, uncomplicated; G89.29 Other chronic pain; G62.9 Polyneuropathy, unspecified; F41.1 Generalized anxiety disorder; Z87.11 Personal history of peptic ulcer disease; Z79.51 Long term (current) use of inhaled steroids; Z79.82 Long term (current) use of aspirin; Z79.899 Other long term (current) drug therapy; Z82.49 Family history of ischemic heart disease and other diseases of the circulatory system; Z87.19 Personal history of other diseases of the digestive system; Z90.49 Acquired absence of other specified parts of digestive tract; Z90.710 Acquired absence of both cervix and uterus; Z20.828 Contact with and (suspected) exposure to other viral communicable diseases; Z88.5 Allergy status to narcotic agent; Z88.8 Allergy status to other drugs, medicaments and biological substances; M54.9 Dorsalgia, unspecified; K21.9 Gastro-esophageal reflux disease without esophagitis; Z83.79 Family history of other diseases of the digestive system
CPT/HCPCS: 36415; 74018; 74176; 80053; 81001; 82150; 83605; 83690; 84484; 85025; 87635; 93005; 94640; 96361; 96374; 96375; 96376; 99285

== ENCOUNTER → 2020-05-12 | Day surgery (SDC) | payer MEDICAID ==
[2020-05-07 09:26] VITALS: BMI 24.9
[~2020-05-12] MED LIST changes: -DEXAMETHASONE SOD PHOSPHATE 10 MG/ML 1 ML VIAL IV ONE; +LACTATED RINGERS 1,000 ML IV ONE; +LACTATED RINGERS 1,000 ML IV SCH; +LIDOCAINE 1% (10MG/ML) FOR IV START INTRADERMA PRN; -LIDOCAINE 1% 20 ML VIAL (10MG/ML) FOR IV START INTRADERMA PRN; +LIDOCAINE 1% INJ 10MG/ML (20 ML MDV) ONE; -MIDAZOLAM (PF) 2 MG/2 ML VIAL IV PRN; +PROPOFOL 10 MG/ML 20 ML VIAL IV ONE; -ceFAZolin IN SWFI 2 GM/20 ML SYRINGE IVP ONE; -fentaNYL (PF) 50 MCG/ML 2 ML AMP IV PRN
[2020-05-12 08:44] VITALS: TEMP 97.8
--- NOTE | 2020-05-12 09:21 | P.GSHP ---
History of Present Illness H&P Date: 05/12/20 Chief Complaint: Duodenal ulcer 60-year-old female known to our service. Patient underwent recent gastrointestinal surgery for gastrojejunostomy stricture. Following the patient was found to have duodenal ulcer, gastritis, reflux esophagitis. Here today for follow-up. Last EGD in March. Patient is on Carafate, Prevacid, Pepcid at this time. She believes her symptoms have improved on her antiacid regimen. Past Medical History Past Medical History: Asthma, GERD/Reflux Additional Past Medical History / Comment(s): Hx colitis,ulcerative colitis,Crohn's,mono x2, swine flu 2011, rt elbow fx, rt wrist fx, STERNAL FX, STRESS ULCER IN STOMACH History of Any Multi-Drug Resistant Organisms: None Reported Past Surgical History: Bowel Resection, Cholecystectomy, Hysterectomy, Uterine Ablation Additional Past Surgical History / Comment(s): ileostomy,mult bowel resections with clips present, x2,sinus surgery, COLONOSCOPY, EGD, BILIARY DIVERSION AT [facility] Past Anesthesia/Blood Transfusion Reactions: No Reported Reaction Additional Past Anesthesia/Blood Transfusion Reaction / Comment(s): blood transfusion 1981-no problems,Takes a while to wake up from anesthesia, nephew had seizure after anesthesia, no malignant hyperthermia that she knows of Smoking Status: Never smoker - Past Family History Father Family Medical History: Congestive Heart Failure (CHF) Mother Family Medical History: GERD/Reflux, Hypertension Medications and Allergies Home Medications Medication Instructions Recorded Confirmed Type Azelastine HCl 1 spray EA NOSTRIL DAILY 11/20/14 05/07/20 History Cyanocobalamin [Vitamin B-12] 1.5 ml IM QMONTH 11/20/14 05/07/20 History Levalbuterol Hfa Inhaler [Xopenex 1 puff INHALATION DAILY PRN 11/20/14 05/07/20 History Hfa Inhaler] Mometasone/Formoterol [Dulera 200 2 puff INHALATION RT-BID 11/20/14 05/07/20 History Mcg/5 Mcg Inhaler] Montelukast [Singulair] 10 mg PO QAM 11/20/14 05/07/20 History Glucosam/Chond/Hyalu/Cf Borate 1 tab PO DAILY 04/27/18 05/07/20 History [Move Free Joint FlexyMind Tablet] Multivitamin [Multivitamins Adult 1 tab PO DAILY 04/27/18 05/07/20 History Gummies] Famotidine [Pepcid] 40 mg PO HS 07/11/19 05/07/20 History ALPRAZolam [Xanax] 0.25 mg PO BID PRN 03/11/20 05/07/20 History Acetaminophen-Codeine 300-30mg 1 tab PO QID PRN 03/11/20 05/07/20 History [Tylenol w/codeine #3] Calcium Gummies 1 tab PO DAILY 03/11/20 05/07/20 History Cholecalciferol [Vitamin D3 (25 1,000 unit PO DAILY 03/11/20 05/07/20 History Mcg = 1000 Iu)] Escitalopram [Lexapro] 5 mg PO BID 03/11/20 05/07/20 History Fexofenadine HCl [Maria Luz Allergy] 180 mg PO DAILY 03/11/20 05/07/20 History Gabapentin [Neurontin] 300 mg PO BID 03/11/20 05/07/20 History Magnesium 250 mg PO DAILY 03/11/20 05/07/20 History Metoclopramide [Reglan] 10 mg PO QID PRN 03/11/20 05/07/20 History Ondansetron [Zofran] 4 mg PO Q4H PRN 03/11/20 05/07/20 History methocarbamoL [Robaxin] 500 - 1,000 mg PO Q6H PRN 03/11/20 05/07/20 History Lansoprazole [Prevacid] 30 mg PO BID 05/07/20 05/07/20 History Sucralfate [Carafate] 1 gm PO ACHS 05/07/20 05/07/20 History Allergies Allergy/AdvReac Type Severity Reaction Status Date / Time esomeprazole magnesium Allergy Abdominal Verified 05/07/20 09:14 [From Nexium] Pain hydrocodone [From [place]] Allergy Anaphylaxis Verified 05/07/20 09:14 hydromorphone HCl Allergy severe Verified 05/07/20 09:14 [From Dilaudid] bradycardia karaya gum Allergy sultana Verified 05/07/20 09:14 [From Karaya Paste] lactose Allergy Nausea & Verified 05/07/20 09:14 Vomiting & Diarrhea omeprazole Allergy Abdominal Verified 05/07/20 09:14 Pain pantoprazole sodium Allergy Abdominal Verified 05/07/20 09:14 [From Protonix] Pain prednisone Allergy Rapid Verified 05/07/20 09:14 Heart Rate,psychotic methylphenidate HCl AdvReac Chest Pain Verified 05/07/20 09:14 [From Ritalin] Surgical - Exam Vital Signs Temp Pulse Resp BP Pulse Ox 97.8 F 58 L 18 169/79 98 05/12/20 08:43 05/12/20 08:43 05/12/20 08:43 05/12/20 08:43 05/12/20 08:43 Physical exam: General: Well-developed, well-nourished HEENT: Normocephalic, sclerae nonicteric Abdomen: Nontender, nondistended Extremities: No edema Neuro: Alert and oriented Assessment and Plan (1) Duodenal ulcer Narrative/Plan: Will proceed with upper and lower endoscopy Current Visit: Yes Status: Acute Code(s): K26.9 - DUODENAL ULCER, UNSP ACUTE OR CHRONIC, W/O HEMOR OR PERF SNOMED Code(s): 13202495
--- NOTE | 2020-05-12 09:30 | P.PCN ---
Date of Procedure: 05/12/20 Procedure(s) Performed: Preoperative Dx: GERD, history of duodenal ulcer Postoperative Dx: Gastritis, patent gastrojejunostomy, small sliding hiatal hernia Procedure: EGD with Bx Anesthesia: Sedation Endoscopist: Dr. Kenyon Specimens: Antrum Endoscopic Procedure: The patient was on the endoscopy table in the left decubitus position. The Olympus gastroscope was inserted into the oropharynx and passed under direct visualization to the region of the third portion of the duodenum. From that point the scope was slowly withdrawn inspecting all surfaces carefully. There were no neoplastic inflammatory or polypoid lesions throughout the duodenum. The pylorus was mildly inflamed. I was able to pass the scope through the pylorus into the duodenum. There appeared to be a mild stricture of the proximal duodenum. We were able to pass beyond that into the second and third portion of the duodenum without difficulty. The duodenum itself other than the mild narrowing appeared normal without acute inflammatory changes. Mild excoriation at the pylorus was noted after passage of the scope. No ulceration was seen. The stomach was then inspected including retroflexion. The patient had a gastrojejunostomy along the greater curvature in the distal body region. This was widely patent. There were no inflammatory changes. The jejunal limb appeared normal. Retroflexion of the scope revealed a normal proximal stomach. The scope was withdrawn and the esophagus. There appear to be a small sliding hiatal hernia. The is no inflammatory changes at this time in the esophagus however. The remainder the esophagus appeared normal as well. The patient was then taken to the recovery room in stable condition per anesthesia guidelines. Recommendations: Await biopsy results. May start to decrease the degree of antiacid therapy at this time.
[2020-05-12 09:48] VITALS: RESP 16
[2020-05-12 09:51] VITALS: BP 144/76; PULSE 79
== END ==
LOC: ORWHC2ENDO 08:25
PROVIDERS: ATTEND Surgery
DX: K29.50 Unspecified chronic gastritis without bleeding (principal); K31.5 Obstruction of duodenum; K21.9 Gastro-esophageal reflux disease without esophagitis; K44.9 Diaphragmatic hernia without obstruction or gangrene; J45.909 Unspecified asthma, uncomplicated; K51.90 Ulcerative colitis, unspecified, without complications; K50.90 Crohn's disease, unspecified, without complications; Z87.11 Personal history of peptic ulcer disease; Z87.19 Personal history of other diseases of the digestive system; Z79.899 Other long term (current) drug therapy; Z86.19 Personal history of other infectious and parasitic diseases; Z87.09 Personal history of other diseases of the respiratory system; Z87.81 Personal history of (healed) traumatic fracture; Z90.49 Acquired absence of other specified parts of digestive tract; Z90.710 Acquired absence of both cervix and uterus; Z98.890 Other specified postprocedural states; Z93.2 Ileostomy status; Z91.89 Other specified personal risk factors, not elsewhere classified; Z88.5 Allergy status to narcotic agent; Z91.011 Allergy to milk products; Z88.8 Allergy status to other drugs, medicaments and biological substances; Z93.4 Other artificial openings of gastrointestinal tract status; Z84.89 Family history of other specified conditions; Z82.49 Family history of ischemic heart disease and other diseases of the circulatory system; Z83.79 Family history of other diseases of the digestive system
CPT/HCPCS: 88305; 43239; J2001; J2704

== ENCOUNTER → 2020-06-05 | Outpatient (CLI) | payer MEDICAID ==
--- NOTE | 2020-06-05 07:56 | XR ---
EXAMINATION TYPE: XR foot complete bilateral DATE OF EXAM: 06/05/2020 CLINICAL HISTORY: Joint pain in both feet since covid vaccine seen April 30, 2020 TECHNIQUE: Frontal, lateral, and oblique images of the bilateral feet are obtained. COMPARISON: None FINDINGS: There is no acute fracture/dislocation evident in either foot. Some flexion of the toes is present. There is diffuse sclerosis involving the proximal phalanx fifth toe left foot. If pain loca lized to this level further investigation would be warranted. Consider Melorheostosis. Tiny inferior spur right foot. The overlying soft tissue appears unremarkable bilaterally. IMPRESSION: As above.
[2020-06-05 08:09] LABS: Basophils # (A) 0.1 k/uL (0-0.2); Basophils % (A) 1 %; Eosinophils # (A) 0.4 k/uL (0-0.7); Eosinophils % (A) 4 %; HCT 38.1 % (34.0-46.0); HGB 12.9 gm/dL (11.4-16.0); Lymphocytes # (A) 2.3 k/uL (1.0-4.8); Lymphocytes % (A) 27 %; MCH 28.6 pg (25.0-35.0); MCHC 33.8 g/dL (31.0-37.0); MCV 84.5 fL (80.0-100.0); Mean Platelet Volume 7.1; Monocytes # (A) 0.4 k/uL (0-1.0); Monocytes % (A) 5 %; Neutrophils # (A) 5.1 k/uL (1.3-7.7); Neutrophils % (A) 61 %; Platelet Count 365 k/uL (150-450); RBC 4.51 m/uL (3.80-5.40); RDW 14.1 % (11.5-15.5); WBC 8.4 k/uL (3.8-10.6)
[2020-06-05 08:23] LABS: Albumin 4.3 g/dL (3.5-5.0); Calcium 9.7 mg/dL (8.4-10.2); Potassium 4.4 mmol/L (3.5-5.1); Total Bilirubin 0.5 mg/dL (0.2-1.3); Total Protein 7.2 g/dL (6.3-8.2); Uric Acid 2.9 mg/dL (3.7-7.4)
[2020-06-05 09:36] LABS: Erythrocyte Sedimentation Rate 13 mm/hr (0-20)
== END | disposition home or self-care (01) ==
LOC: RADXRMAIN 07:10
PROVIDERS: ATTEND Internal Medicine Geriatric Medicine
DX: M21.272 Flexion deformity, left ankle and toes (principal); M21.271 Flexion deformity, right ankle and toes; M89.8X7 Other specified disorders of bone, ankle and foot; M25.774 Osteophyte, right foot; E78.5 Hyperlipidemia, unspecified; M10.9 Gout, unspecified; G62.9 Polyneuropathy, unspecified
CPT/HCPCS: 80053; 80061; 83036; 84443; 84550; 85025; 85652

== ENCOUNTER → 2020-07-03 | Outpatient (CLI) | payer MEDICAID ==
[2020-07-03 09:21] LABS: C Reactive Protein <5.0 mg/L (<10.0); Creatine Kinase 89 U/L (30-135); Uric Acid 4.4 mg/dL (3.7-7.4)
--- NOTE | 2020-07-03 09:23 | XR ---
EXAMINATION TYPE: XR ankle complete bilateral DATE OF EXAM: 07/03/2020 CLINICAL HISTORY: Pain and swelling. TECHNIQUE: Frontal, lateral and oblique images of the bilateral ankles are obtained. COMPARISON: None. FINDINGS: There is no acute fracture/dislocation evident in either ankle. The ankle mortise appears symmetric and within normal limits bilaterally. Symmetric mild diffuse subcutaneous edema without quevedo spicious focal soft tissue swelling. Tiny inferior calcaneal spur right ankle otherwise No significan t spurring noted. IMPRESSION: As above.
[2020-07-03 19:25] LABS: Cyclic Citrull Pep IgG Unit 0.5 U/mL; Cyclic Citrullinated Pep IgG NEGATIVE (NEGATIVE)
[2020-07-04 00:44] LABS: Rheumatoid Factor, Qnt 7 IU/mL (0-15)
[2020-07-06 08:11] LABS: HLA B27 NEGATIVE
[2020-07-06 10:59] LABS: Angiotensin-1 Converting Enz. 37 U/L (8-52)
== END ==
LOC: RADXRMAIN 07:42
PROVIDERS: ATTEND Internal Medicine Rheumatology
DX: M77.31 Calcaneal spur, right foot (principal)
CPT/HCPCS: 82164; 82306; 82550; 83520; 84550; 85652; 86038; 86140; 86200; 86431; 86812

== ENCOUNTER → 2020-10-15 | Outpatient (CLI) | payer MEDICAID ==
--- NOTE | 2020-10-15 17:30 | CT ---
EXAMINATION TYPE: CT angio chest DATE OF EXAM: 10/15/2020 COMPARISON: Chest x-ray 10/15/2020 HISTORY: SOB, dyspnea on exertion CT DLP: 283.9 mGycm Automated exposure control for dose reduction was used. CONTRAST: CTA scan of the thorax is performed with IV Contrast, patient injected with 57cc mL of Isovue 370, pu lmonary embolism protocol. MIP images are created and reviewed. 3D reconstructed images are created on an independent workstation and reviewed. FINDINGS: LUNGS: The lungs are grossly clear, there is no concerning parenchymal mass or nodule identified. Tato cified nodules present in the left upper lobe. There is no pleural effusion or pneumothorax seen. T he tracheobronchial tree is patent. AORTA: No additional significant abnormality is seen. MEDIASTINUM: There is satisfactory enhancement of the pulmonary artery and its branches, there is no CT evidence for pulmonary embolism. There are no greater than 1 cm hilar or mediastinal lymph nodes. No pericardial effusion is seen. OTHER: Multiple punctate calcifications present within the spleen consistent with old granulomatous disease.. Patient is post cholecystectomy IMPRESSION: OLD GRANULOMATOUS DISEASE. POSTOP CHANGES.
== END | disposition home or self-care (01) ==
LOC: RADCTMAIN 15:48
PROVIDERS: ATTEND Internal Medicine
DX: D71 Functional disorders of polymorphonuclear neutrophils (principal)
CPT/HCPCS: 71275; Q9967

== ENCOUNTER → 2020-10-28 | Outpatient (CLI) | payer MEDICAID ==
--- NOTE | 2020-10-28 17:31 | ECHOF ---
Referral Reason:R06.09 Dyspnea on exhurstion MEASUREMENTS -------- HEIGHT: 162.6 cm WEIGHT: 74.8 kg BP: 138/74 RVIDd: 2.9 cm (< 3.3) IVSd: 0.9 cm (0.6 - 1.1) LVIDd: 3.4 cm (3.9 - 5.3) LVPWd: 1.0 cm (0.6 - 1.1) IVSs: 1.6 cm LVIDs: 2.1 cm LVPWs: 1.4 cm LA Diam: 2.8 cm (2.7 - 3.8) LAESV Index (A-L): 15.48 ml/m Ao Diam: 2.8 cm (2.0 - 3.7) AV Cusp: 1.7 cm (1.5 - 2.6) MV EXCURSION: 15.510 mm (> 18.000) MV EF SLOPE: 69 mm/s (70 - 150) EPSS: 0.2 cm MV E Martínez: 0.91 m/s MV DecT: 228 ms MV A Martínez: 0.70 m/s MV E/A Ratio: 1.29 RAP: 5.00 mmHg RVSP: 18.23 mmHg FINDINGS -------- Sinus rhythm. This was a technically adequate study. The left ventricular size is normal. Left ventricular wall thickness is normal. Overall left vent ricular systolic function is normal with, an EF between 60 - 65 %. The right ventricle is normal in size. The right atrium is normal in size. Interatrial and interventricular septum intact. The aortic valve is trileaflet, and appears structurally normal. No aortic stenosis or regurgitation. Mild tricuspid regurgitation present. Right ventricular systolic pressure is normal at < 35 mmHg. Trace/mild (physiologic) pulmonic regurgitation. The aortic root size is normal. Normal inferior vena cava with normal inspiratory collapse consistent with estimated right atrial pre ssure of 5 mmHg. There is no pericardial effusion. CONCLUSIONS -------- 1. The left ventricular size is normal. 2. Left ventricular wall thickness is normal. 3. Overall left ventricular systolic function is normal with, an EF between 60 - 65 %. 4. The aortic valve is trileaflet, and appears structurally normal. No aortic stenosis or regurgitati on. 5. Mild tricuspid regurgitation present. 6. Trace/mild (physiologic) pulmonic regurgitation. 7. There is no pericardial effusion. AUTOMOTIVE REPAIR TECHNICIAN: Adriana Alvarez RDCS
== END | disposition home or self-care (01) ==
LOC: RADECHMAIN 11:06
PROVIDERS: ATTEND Internal Medicine
DX: I08.8 Other rheumatic multiple valve diseases (principal)
CPT/HCPCS: 93306

== ENCOUNTER → 2020-11-25 | Outpatient (CLI) | payer MEDICAID ==
--- NOTE | 2020-11-26 08:42 | BD ---
EXAMINATION TYPE: Axial Bone Density DATE OF EXAM: 11/25/2020 COMPARISON: NONE CLINICAL HISTORY: Height: 63.5 IN Weight: 165 LBS FRAX RISK QUESTIONS: History of Fracture in Adulthood: RT WRIST AGE 57 Secondary Osteoporosis: 4. Malnutrition: YES RISK FACTORS HISTORY OF: History of Wrist Fracture: RT WRIST AGE 57 Active: YES Diet low in dairy products/other sources of calcium: YES Postmenopausal woman: AGE 53 Take estrogen and/or progesterone medications: ESTRADIAL How lon YEAR MEDICATIONS: Additional Medications: CALCIUM, VIT D, ESTRADIAL,ULTRA MOVE FREE, LEXAPRO, MESSI, PEPCID, PREVACID , MUTI VIT, VIT C, EXAM MEASUREMENTS: Bone mineral densitometry was performed using the [employer] System. Bone mineral density as measured about the Lumbar spine is: ----- L1-L4(G/cm2): 1.166 T Score Values are as follows: ----- L2: -0.3 ----- L3: 0.0 ----- L4: 0.1 ----- L1-L4: -0.1 Bone mineral density BASELINE Bone mineral density about the R hip (g/cm2): 0.787 Bone mineral density about the L hip (g/cm2): 0.735 T Score values are as follows: -----R Neck: -1.8 -----L Neck: -2.2 -----R Total: -2.0 -----L Total: -2.3 Bone mineral density BASELINE IMPRESSION: Osteopenia (T Score between -2.5 and -1). There is slightly increased risk of fracture and the patient may be considered for treatment. Re-Screen 2-5 years. NOTE: T-SCORE=SD OF THE YOUNG ADULT MEAN.
--- NOTE | 2020-11-27 09:38 | MM ---
Reason for exam: screening (asymptomatic). Last mammogram was performed 7 years and 11 months ago. History: Patient is postmenopausal. Taking estrogen beginning at age 53. Physical Findings: A clinical breast exam by your physician is recommended on an annual basis and results should be correlated with mammographic findings. MG 3D Screening Mammo W/Cad Bilateral CC and MLO view(s) were taken. Prior study comparison: December 14, 2012, bilateral digital screening mammo w/CAD. September 08, 2011, bilateral digital screening mammo w/CAD. The breast tissue is heterogeneously dense. This may lower the sensitivity of mammography. No significant changes when compared with prior studies. ASSESSMENT: Negative, BI-RAD 1 RECOMMENDATION: Routine screening mammogram of both breasts in 1 year.
== END | disposition home or self-care (01) ==
LOC: RADMAMWWP 07:58
PROVIDERS: ATTEND Obstetrics & Gynecology
DX: Z12.31 Encounter for screening mammogram for malignant neoplasm of breast (principal); M85.851 Other specified disorders of bone density and structure, right thigh; Z79.818 Long term (current) use of other agents affecting estrogen receptors and estrogen levels
CPT/HCPCS: 77063; 77067; 77080

== ENCOUNTER → 2020-12-11 | Outpatient (CLI) | payer MEDICAID ==
--- NOTE | 2020-12-11 16:34 | P.STRESS ---
- Stress Test Note Stress Test Results/Findings: Exam Performed: stress echo exercise Exam Date: 12/11/20 Reason for Exam: Shorness of breath Height: 5 ft 4 in Weight: 74.843 kg Protocol: Armand Stage: 2 Duration of Exercise: 5:12 Resting Heart Rate: 65 Resting Blood Pressure: 127/58 Maximum Achieved Heart Rate: 159 Maximum Achieved Blood Pressure: 176/79 85% PMHR: 137 100% PMHR: 161 METS: 7.1 Technologist Comment: Stress Test Results/Findings: Patient underwent exercise stress echo with a Armand protocol treadmill stress test. Patient exercised into Stage 2 for a total of 5 minutes 12 seconds reaching a total of 7.1 METS. Patient's maximum heart rate was 159 which represented 99 % age-predicted maximum heart rate. Patient did experience some shortness breath with exertion. Stress EKG portion: At baseline patient's EKG showed normal sinus rhythm, normal axis, minimal early repolarization inferior leads, no significant ST-T wave abnormalities. At peak exercise, EKG showed no significant change from baseline. Stress echo portion: 2-D echocardiogram was performed in the parasternal long, personal short, apical 2 and apical four-chamber views at rest, peak exercise and in recovery. At baseline, echocardiogram showed left ventricular ejection fraction 55% without wall motion abnormalities. With peak exercise, echocardiogram shows improvement in left ventricular ejection fraction, increase contractility, decrease in left ventricular dimension without wall motion abnormalities consistent with a normal response to exercise. Conclusions: 1. Normal EKG and echo response to exercise without evidence of inducible ischemia. 2. Fair exercise capacity.
== END | disposition home or self-care (01) ==
LOC: RADNMMAIN 09:43
PROVIDERS: ATTEND Internal Medicine Interventional Cardiology
DX: R06.02 Shortness of breath (principal)
CPT/HCPCS: 93351

== ENCOUNTER 2021-06-19 14:39 | Inpatient (IN) | payer MEDICAID ==
--- NOTE | 2021-06-19 14:55 | ED ---
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 He's had decreased output in her ileostomy. She was seen initially by paramedics with positive blood pressure 64/32. She was given 500 mL bolus of saline with some improvement in her blood pressure as well as how she feels. She does state that she is dehydrated she's had this before. No compressive palpitations chest pain fevers chills sweats. MD Complaint: dizziness, lightheadedness - Related Data Home Medications Medication Instructions Recorded Confirmed Azelastine HCl 1 spray EA NOSTRIL BID 11/20/14 06/19/21 Cyanocobalamin [Vitamin B-12 1.5 ml IM QMONTH 11/20/14 06/19/21 Injection] Levalbuterol Hfa Inhaler [Xopenex 1 - 2 puff INHALATION RT-DAILY 11/20/14 06/19/21 Hfa Inhaler] Montelukast [Singulair] 10 mg PO DAILY 11/20/14 06/19/21 Famotidine [Pepcid] 20 mg PO BID 07/11/19 06/19/21 Escitalopram [Lexapro] 10 mg PO DAILY 03/11/20 06/19/21 Fexofenadine HCl [Maria Luz Allergy] 180 mg PO DAILY 03/11/20 06/19/21 Lansoprazole [Prevacid] 30 mg PO BID 05/07/20 06/19/21 Ascorbic Acid [Vitamin C] 500 mg PO DAILY 05/10/21 06/19/21 Folic Acid 0.4 mg PO DAILY 05/10/21 06/19/21 Magnesium Oxide [Mag-Ox] 400 mg PO Q48H 05/10/21 06/19/21 Zinc 50 mg PO DAILY 05/10/21 06/19/21 Acetaminophen-Codeine 300-30mg 1 tab PO Q4H PRN 06/19/21 06/19/21 [Tylenol w/codeine #3] Albuterol Sulfate [Albuterol 2 puff PO RT-Q4H PRN 06/19/21 06/19/21 Sulfate Hfa] Baclofen 5 mg PO TID 06/19/21 06/19/21 Cholecalciferol [Vitamin D3 (25 25 mcg PO DAILY 06/19/21 06/19/21 Mcg = 1000 Iu)] Gabapentin 300 mg PO TID 06/19/21 06/19/21 Multivitamins, Thera [Multivitamin 1 tab PO DAILY 06/19/21 06/19/21 (formulary)] Topiramate [Topamax] 25 mg PO BID 06/19/21 06/19/21 rOPINIRole HCL [Requip] 2 mg PO HS 06/19/21 06/19/21 Previous Rx's Medication Instructions Recorded Aspirin 325 mg PO DAILY tab 05/17/21 Atorvastatin [Lipitor] 80 mg PO HS tab 05/17/21 Clopidogrel [Plavix] 75 mg PO DAILY tab 05/17/21 Fluticasone Nasal [place] [Flonase 2 spray EA NOSTRIL DAILY gm 05/17/21 Nasal [place]] Ipratropium-Albuterol Nebulize 3 ml INHALATION RT-QID PRN ml 05/17/21 [Duoneb 0.5 mg-3 mg/3 ml Soln] lisinopriL [Zestril] 10 mg PO DAILY tab 05/17/21 Allergies Allergy/AdvReac Type Severity Reaction Status Date / Time esomeprazole magnesium Allergy Abdominal Verified 06/19/21 14:56 [From Nexium] Pain hydrocodone [From [place]] Allergy Anaphylaxis Verified 06/19/21 14:56 hydromorphone HCl Allergy severe Verified 06/19/21 14:56 [From Dilaudid] bradycardia karaya gum Allergy sultana Verified 06/19/21 14:56 [From Karaya Paste] lactose Allergy Nausea & Verified 06/19/21 14:56 Vomiting & Diarrhea omeprazole Allergy Abdominal Verified 06/19/21 14:56 Pain pantoprazole sodium Allergy Abdominal Verified 06/19/21 14:56 [From Protonix] Pain prednisone Allergy Rapid Verified 06/19/21 14:56 Heart Rate,psychotic methylphenidate HCl AdvReac Chest Pain Verified 06/19/21 14:56 [From Ritalin] Review of Systems ROS Statement: Those systems with pertinent positive or pertinent negative responses have been documented in the HPI. ROS Other: All systems not noted in ROS Statement are negative. Past Medical History Past Medical History: Asthma, GERD/Reflux Additional Past Medical History / Comment(s): post menopausal bleeding, Hx colitis,ulcerative colitis,Crohn's,mono x2,swine flu 2011,rt elbow fx,rt wrist fx History of Any Multi-Drug Resistant Organisms: None Reported Past Surgical History: Bowel Resection, Cholecystectomy, Hysterectomy, Uterine Ablation Additional Past Surgical History / Comment(s): ileostomy,mult bowel resections with clips present, x2,sinus surgery. bilary diversion november 2019. Past Anesthesia/Blood Transfusion Reactions: No Reported Reaction Additional Past Anesthesia/Blood Transfusion Reaction / Comment(s): blood transfusion 1981-no problems,Takes a while to wake up from anesthesia, nephew had seizure after anesthesia, no malignant hyperthermia that she knows of Past Psychological History: No Psychological Hx Reported Smoking Status: Never smoker Past Alcohol Use History: None Reported Past Drug Use History: None Reported - Past Family History Father Family Medical History: Congestive Heart Failure (CHF), GERD/Reflux, Hypertension Additional Family Medical History / Comment(s): pancreatitis Mother Family Medical History: GERD/Reflux, Hypertension General Exam - General Exam Comments Initial Comments: This is a well-developed well-nourished awake alert oriented 3 female General appearance: alert, in no apparent distress Head exam: Present: atraumatic, normocephalic, normal inspection Eye exam: Present: normal appearance, PERRL, EOMI. Absent: scleral icterus, conjunctival injection, periorbital swelling ENT exam: Present: mucous membranes dry Neck exam: Present: normal inspection, full ROM, other (Genitourinary bruits). Absent: tenderness, meningismus, lymphadenopathy Respiratory exam: Present: normal lung sounds bilaterally. Absent: respiratory distress, wheezes, rales, rhonchi, stridor Cardiovascular Exam: Present: regular rate, normal rhythm, normal heart sounds. Absent: systolic murmur, diastolic murmur, rubs, gallop, clicks GI/Abdominal exam: Present: soft, normal bowel sounds, other (Ileostomy present). Absent: distended, tenderness, guarding, rebound, rigid Extremities exam: Present: normal inspection, full ROM, normal capillary refill. Absent: tenderness, pedal edema, joint swelling, calf tenderness Back exam: Present: normal inspection Neurological exam: Present: alert, oriented X3, CN II-XII intact, motor sensory deficit Psychiatric exam: Present: normal affect, normal mood Skin exam: Present: warm, dry, intact, normal color. Absent: rash Course Vital Signs 06/19/21 06/19/21 06/19/21 14:50 17:27 18:58 Temperature 97.4 F L Pulse Rate 81 94 97 Respiratory 20 18 16 Rate Blood Pressure 107/60 97/65 93/63 O2 Sat by Pulse 96 98 99 Oximetry - Reevaluation(s) Reevaluation #1: 06/19/21 16:29 Patient did have an episode of hypotension with a systolic blood pressure 76 she will be given a fluid bolus. Did discuss the initial findings with the patient's was present patient does have a history of this in the past with high output liquid from her ileostomy which she apparently had this dianeni deidre. She had no further nausea vomiting episodes. Reevaluation #2: 06/19/21 19:45 The patient's blood pressure did finally normalized after additional IV fluids. There is evidence of UTI the patient started on IV antibiotics. Medical Decision Making - Medical Decision Making I did have a long discussion with the patient's regarding the findings patient does demonstrate evidence of acute kidney injury dehydration urinary tract infection hypotensive episode. The blood pressure is improved markedly after additional IV fluids. Patient will be admitted for continued evaluation and treatment I will consult nephrology. - Lab Data Result diagrams: 06/19/21 15:20 06/19/21 19:01 Lab Results 06/19/21 06/19/21 06/19/21 Range/Units 15:20 15:20 17:09 WBC 21.0 H (3.8-10.6) k/uL RBC 4.47 (3.80-5.40) m/uL Hgb 13.3 (11.4-16.0) gm/dL Hct 40.5 (34.0-46.0) % MCV 90.7 (80.0-100.0) fL MCH 29.7 (25.0-35.0) pg MCHC 32.7 (31.0-37.0) g/dL RDW 15.7 H (11.5-15.5) % Plt Count 351 (150-450) k/uL MPV 7.4 Neutrophils % 81 % Lymphocytes % 12 % Monocytes % 4 % Eosinophils % 2 % Basophils % 1 % Neutrophils # 17.0 H (1.3-7.7) k/uL Lymphocytes # 2.5 (1.0-4.8) k/uL Monocytes # 0.7 (0-1.0) k/uL Eosinophils # 0.4 (0-0.7) k/uL Basophils # 0.1 (0-0.2) k/uL Sodium (137-145) mmol/L Potassium (3.5-5.1) mmol/L Chloride (98-107) mmol/L Carbon Dioxide (22-30) mmol/L Anion Gap mmol/L BUN (7-17) mg/dL Creatinine (0.52-1.04) mg/dL Est GFR (CKD-EPI)AfAm (>60 ml/min/1.73 sqM) Est GFR (CKD-EPI)NonAf (>60 ml/min/1.73 sqM) Glucose (74-99) mg/dL POC Glucose (mg/dL) (75-99) mg/dL POC Glu Humidifier Maintenance Worker ID Calcium (8.4-10.2) mg/dL Magnesium (1.6-2.3) mg/dL Total Bilirubin (0.2-1.3) mg/dL AST (14-36) U/L ALT (4-34) U/L Alkaline Phosphatase (38-126) U/L Creatine Kinase (30-135) U/L Troponin I <0.012 (0.000-0.034) ng/mL Total Protein (6.3-8.2) g/dL Albumin (3.5-5.0) g/dL Lipase (23-300) U/L Urine Color Yellow Urine Appearance Turbid H (Clear) Urine pH 5.0 (5.0-8.0) Ur Specific Gates 1.019 (1.001-1.035) Urine Protein 2+ H (Negative) Urine Glucose (UA) Negative (Negative) Urine Ketones Negative (Negative) Urine Blood Trace H (Negative) Urine Nitrite Negative (Negative) Urine Bilirubin Negative (Negative) Urine Urobilinogen <2.0 (<2.0) mg/dL Ur Leukocyte Esterase Large H (Negative) Urine RBC 15 H (0-5) /hpf Urine WBC >182 H (0-5) /hpf Urine WBC Clumps Many H (None) /hpf Ur Squamous Epith Cells 4 (0-4) /hpf Urine Bacteria Moderate H (None) /hpf Cellular Casts 44 (0) /lpf Hyaline Casts 236 H (0-2) /lpf Urine Mucus Many H (None) /hpf 06/19/21 06/19/21 Range/Units 17:47 19:01 WBC (3.8-10.6) k/uL RBC (3.80-5.40) m/uL Hgb (11.4-16.0) gm/dL Hct (34.0-46.0) % MCV (80.0-100.0) fL MCH (25.0-35.0) pg MCHC (31.0-37.0) g/dL RDW (11.5-15.5) % Plt Count (150-450) k/uL MPV Neutrophils % % Lymphocytes % % Monocytes % % Eosinophils % % Basophils % % Neutrophils # (1.3-7.7) k/uL Lymphocytes # (1.0-4.8) k/uL Monocytes # (0-1.0) k/uL Eosinophils # (0-0.7) k/uL Basophils # (0-0.2) k/uL Sodium 134 L (137-145) mmol/L Potassium 5.2 H (3.5-5.1) mmol/L Chloride 112 H (98-107) mmol/L Carbon Dioxide 9 L* (22-30) mmol/L Anion Gap 13 mmol/L BUN 43 H (7-17) mg/dL Creatinine 2.81 H (0.52-1.04) mg/dL Est GFR (CKD-EPI)AfAm 20 (>60 ml/min/1.73 sqM) Est GFR (CKD-EPI)NonAf 18 (>60 ml/min/1.73 sqM) Glucose 106 H (74-99) mg/dL POC Glucose (mg/dL) 188 H (75-99) mg/dL POC Glu Humidifier Maintenance Worker ID Zahraa Porter Calcium 9.0 (8.4-10.2) mg/dL Magnesium 1.9 (1.6-2.3) mg/dL Total Bilirubin 0.4 (0.2-1.3) mg/dL AST 22 (14-36) U/L ALT 69 H (4-34) U/L Alkaline Phosphatase 114 (38-126) U/L Creatine Kinase 22 L (30-135) U/L Troponin I (0.000-0.034) ng/mL Total Protein 5.9 L (6.3-8.2) g/dL Albumin 3.4 L (3.5-5.0) g/dL Lipase 167 (23-300) U/L Urine Color Urine Appearance (Clear) Urine pH (5.0-8.0) Ur Specific [place] (1.001-1.035) Urine Protein (Negative) Urine Glucose (UA) (Negative) Urine Ketones (Negative) Urine Blood (Negative) Urine Nitrite (Negative) Urine Bilirubin (Negative) Urine Urobilinogen (<2.0) mg/dL Ur Leukocyte Esterase (Negative) Urine RBC (0-5) /hpf Urine WBC (0-5) /hpf Urine WBC Clumps (None) /hpf Ur Squamous Epith Cells (0-4) /hpf Urine Bacteria (None) /hpf Cellular Casts (0) /lpf Hyaline Casts (0-2) /lpf Urine Mucus (None) /hpf - EKG Data -: EKG Interpreted by Nd EKG shows normal: sinus rhythm EKG Comments: EKG shows ventricular rate 83. Interval 159 QRS 90 QT since QTC 378/418 he T- wave changes - Radiology Data Radiology results: report reviewed (Imaging reviewed evidence for clearing of previous), image reviewed Disposition Clinical Impression: Dehydration, Acute kidney injury, Hypotensive episode, Gastroenteritis, Failure to thrive in adult, Hemiparesis affecting left side as late effect of cerebrovascular accident, Urinary tract infection Disposition: ADMITTED IP TO THIS HOSP Condition: Fair Referrals: Isak Milligan MD [Primary Care Provider] - 1-2 days
--- NOTE | 2021-06-19 15:11 | XR ---
EXAMINATION TYPE: XR chest 2V DATE OF EXAM: 06/19/2021 COMPARISON: 05/13/2021 HISTORY: Lightheaded. TECHNIQUE: 2 views FINDINGS: Heart and mediastinum are normal. Lungs are clear of consolidation. Costophrenic angles are clear. There are no hilar masses. There is some mild atelectasis right lung base. IMPRESSION: There is improvement in the pulmonary interstitial edema compared to old exam. Edema most ly cleared. Normal heart.
[2021-06-19 15:38] LABS: Basophils # (A) 0.1 k/uL (0-0.2); Basophils % (A) 1 %; Eosinophils # (A) 0.4 k/uL (0-0.7); Eosinophils % (A) 2 %; HCT 40.5 % (34.0-46.0); HGB 13.3 gm/dL (11.4-16.0); Lymphocytes # (A) 2.5 k/uL (1.0-4.8); Lymphocytes % (A) 12 %; MCH 29.7 pg (25.0-35.0); MCHC 32.7 g/dL (31.0-37.0); MCV 90.7 fL (80.0-100.0); Mean Platelet Volume 7.4; Monocytes # (A) 0.7 k/uL (0-1.0); Monocytes % (A) 4 %; Neutrophils % (A) 81 %; Platelet Count 351 k/uL (150-450); RBC 4.47 m/uL (3.80-5.40); RDW 15.7 % (11.5-15.5)
[2021-06-19 17:18] LABS: Appearance,Urine Turbid (Clear); Bacteria,Urine Moderate /hpf; Bilirubin,Urine Negative (Negative); Blood,Urine Trace (Negative); Cellular Casts,Urine 44 /lpf (0); Color,Urine Yellow; Glucose,Urine (UA) Negative (Negative); Hyaline Casts,Urine 236 /lpf (0-2); Ketones,Urine Negative (Negative); Leukocyte Esterase,Urine Large (Negative); Mucus,Urine Many /hpf; Nitrite,Urine Negative (Negative); Protein,Urine 2+ (Negative); RBC,Urine 15 /hpf (0-5); Specific Gravity,Urine 1.019 (1.001-1.035); Squamous Epithelial Cell,Urine 4 /hpf (0-4); Urobilinogen,Urine <2.0 mg/dL (<2.0); WBC,Urine >182 /hpf (0-5)
[2021-06-19 17:48] LABS: Glucose,Whole Blood 188 mg/dL (75-99)
[2021-06-19] MEDS ORDERED: SODIUM CHLORIDE 0.9% 500 ML 500 ML IV STA (17:57)
[2021-06-19] MEDS ORDERED: cefTRIAXone IN SWFI 1,000 MG/10 ML SYRINGE IVP STA (17:57)
[2021-06-19] MEDS ORDERED: SODIUM CHLORIDE 0.9% 1,000 ML IV STA (17:57)
[2021-06-19] MEDS ORDERED: SODIUM CHLORIDE 0.9% 1,000 ML IV ONE (18:02)
[2021-06-19 19:18] LABS: Albumin 3.4 g/dL (3.5-5.0); Magnesium 1.9 mg/dL (1.6-2.3); Potassium 5.2 mmol/L (3.5-5.1); Total Bilirubin 0.4 mg/dL (0.2-1.3); Total Protein 5.9 g/dL (6.3-8.2)
[2021-06-19] MEDS ORDERED: NALOXONE 0.4 MG/ML 1 ML VIAL IV PRN (19:52)
[2021-06-19] MEDS ORDERED: ACETAMINOPHEN TAB 325 MG TAB PO PRN (19:52)
[2021-06-19] MEDS ORDERED: ONDANSETRON 4 MG/2 ML VIAL IVP PRN (19:52)
[2021-06-19] MEDS ORDERED: IPRATROPIUM-ALBUTEROL 3 ML NEB INHALATION PRN (19:56)
[2021-06-19] MEDS ORDERED: ALBUTEROL HFA INHALER INHALATION PRN (19:56)
[2021-06-19] MEDS: NON FORMULARY DRUG (Lansoprazole [Prevacid] 30 MG Capsule.Dr) PO SCH (23:03)
[2021-06-19] MEDS: BACLOFEN 10 MG TAB PO SCH (23:07)
[2021-06-19] MEDS: ATORVASTATIN 80 MG TAB PO SCH (23:07)
[2021-06-19] MEDS: TOPIRAMATE 25 MG TAB PO SCH (23:07)
[2021-06-19] MEDS: GABAPENTIN 300 MG CAP PO SCH (23:07)
[2021-06-19] MEDS: FAMOTIDINE 20 MG TAB PO SCH (23:07)
[2021-06-19] MEDS: AZELASTINE 137MCG/SPRAY EA NOSTRIL SCH (23:34)
[2021-06-20] MEDS: Acetaminophen-Codeine 300-30mg TAB PO PRN (01:52)
[2021-06-20 09:14] LABS: Basophils % (A) 0 %; Eosinophils # (A) 0.2 k/uL (0-0.7); Eosinophils % (A) 1 %; HCT 41.6 % (34.0-46.0); HGB 12.8 gm/dL (11.4-16.0); Hypochromasia Marked; Lymphocytes # (A) 2.2 k/uL (1.0-4.8); Lymphocytes % (A) 20 %; MCH 29.3 pg (25.0-35.0); MCHC 30.8 g/dL (31.0-37.0); MCV 95.1 fL (80.0-100.0); Mean Platelet Volume 6.9; Monocytes # (A) 0.5 k/uL (0-1.0); Monocytes % (A) 4 %; Neutrophils # (A) 7.8 k/uL (1.3-7.7); Neutrophils % (A) 72 %; Platelet Count 321 k/uL (150-450); RBC 4.37 m/uL (3.80-5.40); RDW 15.8 % (11.5-15.5); WBC 10.9 k/uL (3.8-10.6)
[2021-06-20 09:28] LABS: Albumin 3.3 g/dL (3.5-5.0); Calcium 9.3 mg/dL (8.4-10.2); Potassium 4.9 mmol/L (3.5-5.1); Total Bilirubin 0.7 mg/dL (0.2-1.3); Total Protein 6.1 g/dL (6.3-8.2)
--- NOTE | 2021-06-20 09:45 | P.NPCON ---
History of Present Illness - Reason for Consult Consult date: 06/20/21 acute renal failure - Chief Complaint Hypotension - History of Present Illness This is a 61-year-old female seen in consultation because of acute kidney injury. She has Crohn's disease and had excessive output and was unable to keep up. Additionally she was started on lisinopril recently a few days ago because of high blood pressure. Supposedly her blood pressure by the EMS was 64 was 32 was given IV fluids before she was transported to the emergency room where her blood pressure was in the 90s. No nausea vomiting no fever chills. No chest pain dizziness seizures syncope. Recently she was admitted 05/10/2021 with a left-sided CVA and discharged on 117 to long term. At the time she was given TPA. In spite of this she is involved in 2 a CVA. MRI showed multifocal right-sided infarct including fronto parietal and occipital lobes. Hypercoagulability studies were unremarkable, she was on estradiol which was discontinued Currently she is feeling fairly well appetite is good. No nausea vomiting. No abdominal pain. With IV fluids but will use 117/57 heart rate in the 100 range afebrile. Urine output, not well recorded Past Medical History Past Medical History: Asthma, GERD/Reflux Additional Past Medical History / Comment(s): post menopausal bleeding, Hx colitis,ulcerative colitis,Crohn's,mono x2,swine flu 2011,rt elbow fx,rt wrist fx History of Any Multi-Drug Resistant Organisms: None Reported Past Surgical History: Bowel Resection, Cholecystectomy, Hysterectomy, Uterine Ablation Additional Past Surgical History / Comment(s): ileostomy,mult bowel resections with clips present, x2,sinus surgery. bilary diversion november 2019. loop recorder implant Past Anesthesia/Blood Transfusion Reactions: No Reported Reaction Additional Past Anesthesia/Blood Transfusion Reaction / Comment(s): blood transfusion 1981-no problems,Takes a while to wake up from anesthesia, nephew had seizure after anesthesia, no malignant hyperthermia that she knows of Past Psychological History: No Psychological Hx Reported Smoking Status: Never smoker Past Alcohol Use History: None Reported Past Drug Use History: None Reported - Past Family History Father Family Medical History: Congestive Heart Failure (CHF), GERD/Reflux, Hyper tension Additional Family Medical History / Comment(s): pancreatitis Mother Family Medical History: GERD/Reflux, Hypertension Medications and Allergies Home Medications Medication Instructions Recorded Confirmed Type Azelastine HCl 1 spray EA NOSTRIL BID 11/20/14 06/19/21 History Cyanocobalamin [Vitamin B-12 1.5 ml IM QMONTH 11/20/14 06/19/21 History Injection] Levalbuterol Hfa Inhaler [Xopenex 1 - 2 puff INHALATION RT-DAILY 11/20/14 06/19/21 History Hfa Inhaler] Montelukast [Singulair] 10 mg PO DAILY 11/20/14 06/19/21 History Famotidine [Pepcid] 20 mg PO BID 07/11/19 06/19/21 History Escitalopram [Lexapro] 10 mg PO DAILY 03/11/20 06/19/21 History Fexofenadine HCl [Maria Luz Allergy] 180 mg PO DAILY 03/11/20 06/19/21 History Lansoprazole [Prevacid] 30 mg PO BID 05/07/20 06/19/21 History Ascorbic Acid [Vitamin C] 500 mg PO DAILY 05/10/21 06/19/21 History Folic Acid 0.4 mg PO DAILY 05/10/21 06/19/21 History Magnesium Oxide [Mag-Ox] 400 mg PO Q48H 05/10/21 06/19/21 History Zinc 50 mg PO DAILY 05/10/21 06/19/21 History Aspirin 325 mg PO DAILY tab 05/17/21 06/19/21 Rx Atorvastatin [Lipitor] 80 mg PO HS tab 05/17/21 06/19/21 Rx Clopidogrel [Plavix] 75 mg PO DAILY tab 05/17/21 06/19/21 Rx Fluticasone Nasal [place] [Flonase 2 spray EA NOSTRIL DAILY gm 05/17/21 06/19/21 Rx Nasal [place]] Ipratropium-Albuterol Nebulize 3 ml INHALATION RT-QID PRN ml 05/17/21 06/19/21 Rx [Duoneb 0.5 mg-3 mg/3 ml Soln] lisinopriL [Zestril] 10 mg PO DAILY tab 05/17/21 06/19/21 Rx Acetaminophen-Codeine 300-30mg 1 tab PO Q4H PRN 06/19/21 06/19/21 History [Tylenol w/codeine #3] Albuterol Sulfate [Albuterol 2 puff PO RT-Q4H PRN 06/19/21 06/19/21 History Sulfate Hfa] Baclofen 5 mg PO TID 06/19/21 06/19/21 History Cholecalciferol [Vitamin D3 (25 25 mcg PO DAILY 06/19/21 06/19/21 History Mcg = 1000 Iu)] Gabapentin 300 mg PO TID 06/19/21 06/19/21 History Multivitamins, Thera [Multivitamin 1 tab PO DAILY 06/19/21 06/19/21 History (formulary)] Topiramate [Topamax] 25 mg PO BID 06/19/21 06/19/21 History rOPINIRole HCL [Requip] 2 mg PO HS 06/19/21 06/19/21 History Allergies Allergy/AdvReac Type Severity Reaction Status Date / Time esomeprazole magnesium Allergy Abdominal Verified 06/19/21 14:56 [From Nexium] Pain hydrocodone [From [place]] Allergy Anaphylaxis Verified 06/19/21 14:56 hydromorphone HCl Allergy severe Verified 06/19/21 14:56 [From Dilaudid] bradycardia karaya gum Allergy sultana Verified 06/19/21 14:56 [From Karaya Paste] lactose Allergy Nausea & Verified 06/19/21 14:56 Vomiting & Diarrhea omeprazole Allergy Abdominal Verified 06/19/21 14:56 Pain pantoprazole sodium Allergy Abdominal Verified 06/19/21 14:56 [From Protonix] Pain prednisone Allergy Rapid Verified 06/19/21 14:56 Heart Rate,psychotic methylphenidate HCl AdvReac Chest Pain Verified 06/19/21 14:56 [From Ritalin] Physical Exam Vitals: Vital Signs Temp Pulse Pulse Resp BP BP Pulse Ox 06/20/21 04:00 98.1 F 100 17 117/57 99 06/20/21 01:19 107 H 17 06/20/21 00:00 98.3 F 107 H 17 116/56 99 06/19/21 21:13 98.8 F 97 18 98/48 97 06/19/21 20:14 98.3 F 107 H 17 116/56 99 06/19/21 18:58 97 16 93/63 99 06/19/21 17:27 94 18 97/65 98 06/19/21 14:50 97.4 F L 81 20 107/60 96 Intake and Output 06/19/21 06/20/21 06/20/21 22:59 06:59 14:59 Intake Total 120 Output Total 110 Balance -110 120 Intake: Oral 120 Output: Urine 110 Straight 110 Other: # Voids 1 1 # Bowel Movements 0 Weight 68.039 kg Exam she is awake alert oriented she has mild left-sided weakness A chin exam no JVP neck is supple no facial asymmetry Lungs are clear to auscultation good air entry bilaterally Heart sounds unremarkable for any murmur rub gallop Abdomen soft nontender ileostomy noted Extremity exam was no edema. Neurologically left-sided weakness but awake alert oriented and speech is normal Results - Lab Results Most recent lab results Calcium 9.3 mg/dL (8.4-10.2) 06/20/21 08:35 Magnesium 1.9 mg/dL (1.6-2.3) 06/19/21 19:01 06/20/21 08:35 06/20/21 08:35 Assessment and Plan Assessment: Impression 1. Acute kidney injury secondary to hypotension from excessive ileostomy and drainage as well as medications including lisinopril that was introduced recently. Creatinine was 2.81 has improved 1.3 mg this morning with hydration. 2. Mild hyponatremia secondary to acute kidney injury resolved sodium 134 improved to 137 3. Mild hyperkalemia from acute kidney injury potassium 5.2 improved to 4.9 4. Acidosis mostly non-gap bicarb is 9 and gap is 13 second 2 ileostomy and acute kidney injury. Improving bicarb is 12. 5. Recent left CVA with multiple infarcts suggestive of emboli on 05/10/2021. Echocardiogram was unremarkable hypercoagulable state studies were unremarkable. She was on estradiol that has been discontinued. 6. History of Crohn's disease with ileostomy Recommendation 1. Maintain oral hydration and 2. Start sodium bicarb 3 times a day 3. IV fluids 7 discontinued we'll watch her off of IV fluid 4. Avoid antihypertensives for now Thank you for this consultation, will continue to follow
[2021-06-20] MEDS: SUCRALFATE 1 GM TAB PO SCH ×3 (11:18→23:15)
[2021-06-20] MEDS: ASCORBIC ACID 500 MG TAB PO SCH (11:25)
[2021-06-20] MEDS: BACLOFEN 10 MG TAB PO SCH ×3 (11:25→21:12)
[2021-06-20] MEDS: MULTIVITAMINS, THERA 1 EACH TAB PO SCH (11:26)
[2021-06-20] MEDS: ESCITALOPRAM 10 MG TAB PO SCH (11:26)
[2021-06-20] MEDS: SODIUM BICARBONATE TAB 650 MG TAB PO SCH ×3 (11:26→21:11)
[2021-06-20] MEDS: ASPIRIN 325 MG TAB PO SCH (11:26)
[2021-06-20] MEDS: CHOLECALCIFEROL 25 MCG (1000 IU) TABLET PO SCH (11:26)
[2021-06-20] MEDS: CLOPIDOGREL 75 MG TAB PO SCH (11:26)
[2021-06-20] MEDS: GABAPENTIN 300 MG CAP PO SCH ×3 (11:26→21:12)
[2021-06-20] MEDS: FOLIC ACID 1 MG TAB PO SCH (11:27)
[2021-06-20] MEDS: TOPIRAMATE 25 MG TAB PO SCH ×2 (11:27→21:13)
[2021-06-20] MEDS: ZINC SULFATE 220 MG CAP PO SCH (11:27)
[2021-06-20] MEDS: FAMOTIDINE 20 MG TAB PO SCH ×2 (11:27→21:11)
[2021-06-20] MEDS: MONTELUKAST 10 MG TAB PO SCH (11:27)
[2021-06-20] MEDS: LORATADINE 10 MG TAB PO SCH (11:27)
[2021-06-20] MEDS: ALBUTEROL NEBULIZED 2.5 MG/3 ML INHALATION SCH (12:13)
--- NOTE | 2021-06-20 13:11 | P.HPIM ---
History of Present Illness H&P Date: 06/20/21 HISTORY OF PRESENT ILLNESS This is a pleasant 61-year-old lady, patient of [facility] with recent CVA with left hemiparesis, history of Crohn's disease status post ileostomy, asthma, GERD, neuropathy bilateral lower extremities last admitted in May 2021 for stroke following this patient was discharged to inpatient rehab. Patient was just discharged on and comes in today with acute onset of nausea and vomiting associated with decreased output from the ostomy . EMS was called and patient started having very low blood pressure. Patient responded very well to the fluids. . Was reviewed patient's afebrile pulse 80. Respiratory rate 16 blood pressure 105/66. Labs reviewed patient's sodium is improved to 137 bicarb improved to 12 creatinine is improved to 1.39. Urine analysis suggestive of infection. Patient received a dose of Rocephin in the ER. Urine culture sent. REVIEW OF SYSTEMS Constitutional: No fever, no chills, no night sweats. No weight change. No weakness, fatigue or lethargy. Noted daytime sleepiness. EENT: Reported headache. No blurred vision or double vision, no loss of vision. No loss of Hearing, no ringing in the ears, no dizziness. No nasal drainage or congestion. No epistaxis. No sore throat. Lungs: No shortness of breath, cough, no sputum production. No wheezing. Cardiovascular: No chest pain, no lower extremity edema. No palpitations. No paroxysmal nocturnal dyspnea. No orthopnea. No lightheadedness or dizziness. No syncopal episodes. Abdominal: No abdominal pain. No nausea, vomiting. No diarrhea. No constipation. No bloody or tarry stools. No loss of appetite. Genitourinary: No dysuria, increased frequency, urgency. No urinary retention. Musculoskeletal: No myalgias. No muscle weakness, no gait dysfunction, no freq uent falls. No back pain. No neck pain. Integumentary: No wounds, no lesions. No rash or pruritus. No unusual bruising. No change in hair or nails. Neurologic: Noted facial droop. No change in mentation. No head injury. No headache. Noted left paralysis. Psychiatric: No depression. No anxiety. No mood swings. Endocrine: No abnormal blood sugars. No weight change. No excessive sweating or thirst. No cold intolerance. PHYSICAL EXAMINATION Gen: This is a 61-year-old female. She is resting in the ICU bed and appears to be comfortable at rest. is at bedside. HEENT: Head is atraumatic, normocephalic. Pupils equal, round. Sclerae is anicteric. Left-sided neglect. Left facial droop. NECK: Supple. No JVD. No lymphadenopathy. No thyromegaly. LUNGS: Clear to auscultation. No wheezes or rhonchi. No intercostal retractions. loop recorder with out any skin changes HEART: Regular rate and rhythm. No murmur. ABDOMEN: Soft. Bowel sounds are present. No masses. No tenderness. EXTREMITIES: No pedal edema. No calf tenderness. NEUROLOGICAL: Patient is awake, alert and oriented x3. Cranial nerves 2 through 12 are grossly intact. Left-sided hemiplegia ASSESSMENT AND PLAN 1.Hypovolemic shock improved with fluids continue normal saline at 75 mL/h 2. Nausea and vomiting likely acute gastroenteritis. Symptoms resolved. Continue normal saline at 75 mL per hour 3. Acute UTI Rocephin every 24 hours 4. Acute kidney injury secondary to dehydration. ATN suspected. Nephrology consulted. Continue IV fluids at 75 mL per hour. Sodium bicarb added by n ephrology. 5. Left hemiparesis, secondary to acute CVA unclear etiology. Patient has a loop recorder in place. Continue Lipitor and Plavix. on baclofen for muscle spasm 6. History of Crohn's and ulcerative colitis, history of ileostomy with a bowel resection 7. Asthma without exacerbation on Singulair maintenance 8 GERD on lansoprazole 9 Dysthymia neuropathy, on gabapentin 10. Headache currently controlled on Topamax. Steroids were discontinued. 11. Restless leg syndrome on requip 2 mg po HS DVT prophylaxis GI prophylaxis COVID-19 testing negative. Patient has been hospitalized during a pandemic. DISCHARGE PLAN Patient needs 1 -2 inpatient days for stablization Past Medical History Past Medical History: Asthma, GERD/Reflux Additional Past Medical History / Comment(s): post menopausal bleeding, Hx colitis,ulcerative colitis,Crohn's,mono x2,swine flu 2011,rt elbow fx,rt wrist fx History of Any Multi-Drug Resistant Organisms: None Reported Past Surgical History: Bowel Resection, Cholecystectomy, Hysterectomy, Uterine Ablation Additional Past Surgical History / Comment(s): ileostomy,mult bowel resections with clips present, x2,sinus surgery. bilary diversion november 2019. loop recorder implant Past Anesthesia/Blood Transfusion Reactions: No Reported Reaction Additional Past Anesthesia/Blood Transfusion Reaction / Comment(s): blood transfusion 1981-no problems,Takes a while to wake up from anesthesia, nephew had seizure after anesthesia, no malignant hyperthermia that she knows of Past Psychological History: No Psychological Hx Reported Smoking Status: Never smoker Past Alcohol Use History: None Reported Past Drug Use History: None Reported - Past Family History Father Family Medical History: Congestive Heart Failure (CHF), GERD/Reflux, Hypertension Additional Family Medical History / Comment(s): pancreatitis Mother Family Medical History: GERD/Reflux, Hypertension Medications and Allergies Home Medications Medication Instructions Recorded Confirmed Type Azelastine HCl 1 spray EA NOSTRIL BID 11/20/14 06/19/21 History Cyanocobalamin [Vitamin B-12 1.5 ml IM QMONTH 11/20/14 06/19/21 History Injection] Levalbuterol Hfa Inhaler [Xopenex 1 - 2 puff INHALATION RT-DAILY 11/20/14 06/19/21 History Hfa Inhaler] Montelukast [Singulair] 10 mg PO DAILY 11/20/14 06/19/21 History Famotidine [Pepcid] 20 mg PO BID 07/11/19 06/19/21 History Escitalopram [Lexapro] 10 mg PO DAILY 03/11/20 06/19/21 History Fexofenadine HCl [Maria Luz Allergy] 180 mg PO DAILY 03/11/20 06/19/21 History Lansoprazole [Prevacid] 30 mg PO BID 05/07/20 06/19/21 History Ascorbic Acid [Vitamin C] 500 mg PO DAILY 05/10/21 06/19/21 History Folic Acid 0.4 mg PO DAILY 05/10/21 06/19/21 History Magnesium Oxide [Mag-Ox] 400 mg PO Q48H 05/10/21 06/19/21 History Zinc 50 mg PO DAILY 05/10/21 06/19/21 History Aspirin 325 mg PO DAILY tab 05/17/21 06/19/21 Rx Atorvastatin [Lipitor] 80 mg PO HS tab 05/17/21 06/19/21 Rx Clopidogrel [Plavix] 75 mg PO DAILY tab 05/17/21 06/19/21 Rx Fluticasone Nasal [place] [Flonase 2 spray EA NOSTRIL DAILY gm 05/17/21 06/19/21 Rx Nasal [place]] Ipratropium-Albuterol Nebulize 3 ml INHALATION RT-QID PRN ml 05/17/21 06/19/21 Rx [Duoneb 0.5 mg-3 mg/3 ml Soln] lisinopriL [Zestril] 10 mg PO DAILY tab 05/17/21 06/19/21 Rx Acetaminophen-Codeine 300-30mg 1 tab PO Q4H PRN 06/19/21 06/19/21 History [Tylenol w/codeine #3] Albuterol Sulfate [Albuterol 2 puff PO RT-Q4H PRN 06/19/21 06/19/21 History Sulfate Hfa] Baclofen 5 mg PO TID 06/19/21 06/19/21 History Cholecalciferol [Vitamin D3 (25 25 mcg PO DAILY 06/19/21 06/19/21 History Mcg = 1000 Iu)] Gabapentin 300 mg PO TID 06/19/21 06/19/21 History Multivitamins, Thera [Multivitamin 1 tab PO DAILY 06/19/21 06/19/21 History (formulary)] Topiramate [Topamax] 25 mg PO BID 06/19/21 06/19/21 History rOPINIRole HCL [Requip] 2 mg PO HS 06/19/21 06/19/21 History Allergies Allergy/AdvReac Type Severity Reaction Status Date / Time esomeprazole magnesium Allergy Abdominal Verified 06/19/21 14:56 [From Nexium] Pain hydrocodone [From [place]] Allergy Anaphylaxis Verified 06/19/21 14:56 hydromorphone HCl Allergy severe Verified 06/19/21 14:56 [From Dilaudid] bradycardia karaya gum Allergy sultana Verified 06/19/21 14:56 [From Karaya Paste] lactose Allergy Nausea & Verified 06/19/21 14:56 Vomiting & Diarrhea omeprazole Allergy Abdominal Verified 06/19/21 14:56 Pain pantoprazole sodium Allergy Abdominal Verified 06/19/21 14:56 [From Protonix] Pain prednisone Allergy Rapid Verified 06/19/21 14:56 Heart Rate,psychotic methylphenidate HCl AdvReac Chest Pain Verified 06/19/21 14:56 [From Ritalin] Physical Exam Vitals: Vital Signs Temp Pulse Pulse Resp BP BP Pulse Ox 06/20/21 08:00 98.3 F 85 16 105/66 100 06/20/21 04:00 98.1 F 100 17 117/57 99 06/20/21 01:19 107 H 17 06/20/21 00:00 98.3 F 107 H 17 116/56 99 06/19/21 21:13 98.8 F 97 18 98/48 97 06/19/21 20:14 98.3 F 107 H 17 116/56 99 06/19/21 18:58 97 16 93/63 99 06/19/21 17:27 94 18 97/65 98 06/19/21 14:50 97.4 F L 81 20 107/60 96 Intake and Output 06/19/21 06/20/21 06/20/21 22:59 06:59 14:59 Intake Total 120 Output Total 110 Balance -110 120 Intake: Oral 120 Output: Urine 110 Straight 110 Other: Voiding Method Bedpan # Voids 1 1 # Bowel Movements 0 Weight 68.039 kg Results CBC & Chem 7: 06/20/21 08:35 06/20/21 08:35 Labs: Abnormal Lab Results - Last 24 Hours (Table) 06/19/21 06/19/21 06/19/21 Range/Units 15:20 17:09 17:47 WBC 21.0 H (3.8-10.6) k/uL MCHC (31.0-37.0) g/dL RDW 15.7 H (11.5-15.5) % Neutrophils # 17.0 H (1.3-7.7) k/uL Sodium (137-145) mmol/L Potassium (3.5-5.1) mmol/L Chloride (98-107) mmol/L Carbon Dioxide (22-30) mmol/L BUN (7-17) mg/dL Creatinine (0.52-1.04) mg/dL Glucose (74-99) mg/dL POC Glucose (mg/dL) 188 H (75-99) mg/dL ALT (4-34) U/L Creatine Kinase (30-135) U/L Total Protein (6.3-8.2) g/dL Albumin (3.5-5.0) g/dL Urine Appearance Turbid H (Clear) Urine Protein 2+ H (Negative) Urine Blood Trace H (Negative) Ur Leukocyte Esterase Large H (Negative) Urine RBC 15 H (0-5) /hpf Urine WBC >182 H (0-5) /hpf Urine WBC Clumps Many H (None) /hpf Urine Bacteria Moderate H (None) /hpf Hyaline Casts 236 H (0-2) /lpf Urine Mucus Many H (None) /hpf 06/19/21 06/20/21 06/20/21 Range/Units 19:01 08:35 08:35 WBC 10.9 H (3.8-10.6) k/uL MCHC 30.8 L (31.0-37.0) g/dL RDW 15.8 H (11.5-15.5) % Neutrophils # 7.8 H (1.3-7.7) k/uL Sodium 134 L (137-145) mmol/L Potassium 5.2 H (3.5-5.1) mmol/L Chloride 112 H 115 H (98-107) mmol/L Carbon Dioxide 9 L* 12 L (22-30) mmol/L BUN 43 H 41 H (7-17) mg/dL Creatinine 2.81 H 1.39 H (0.52-1.04) mg/dL Glucose 106 H (74-99) mg/dL POC Glucose (mg/dL) (75-99) mg/dL ALT 69 H 63 H (4-34) U/L Creatine Kinase 22 L (30-135) U/L Total Protein 5.9 L 6.1 L (6.3-8.2) g/dL Albumin 3.4 L 3.3 L (3.5-5.0) g/dL Urine Appearance (Clear) Urine Protein (Negative) Urine Blood (Negative) Ur Leukocyte Esterase (Negative) Urine RBC (0-5) /hpf Urine WBC (0-5) /hpf Urine WBC Clumps (None) /hpf Urine Bacteria (None) /hpf Hyaline Casts (0-2) /lpf Urine Mucus (None) /hpf Microbiology - Last 24 Hours (Table) 06/19/21 17:09 Urine Culture - Preliminary Urine,Voided Thrombosis Risk Factor Assmnt - Choose All That Apply Any of the Below Risk Factors Present?: Yes Each Factor Represents 1 point: Age 41-60 years Other Risk Factors: No Other congenital or acquired thrombophilia - If yes, enter type in comment: No Thrombosis Risk Factor Assessment Total Risk Factor Score: 1 Thrombosis Risk Factor Assessment Level: Low Risk
[2021-06-20] MEDS: FLUTICASONE 50MCG/SPRAY NASAL 16GM EA NOSTRIL SCH (13:36)
[2021-06-20] MEDS: NON FORMULARY DRUG (Lansoprazole [Prevacid] 30 MG Capsule.Dr) PO SCH (17:47)
--- NOTE | 2021-06-20 17:47 | US ---
EXAMINATION TYPE: US kidneys/renal and bladder DATE OF EXAM: 06/20/2021 COMPARISON: NONE CLINICAL HISTORY: r/o pyeloneph. Abnormal labs. EXAM MEASUREMENTS: Right Kidney: 10.8 x 4.9 x 5.8 cm Left Kidney: 9.9 x 4.0 x 5.6 cm Right Kidney: No hydronephrosis or masses seen Left Kidney: No hydronephrosis or masses seen Bladder: mildly distended, anechoic Bilateral Jets not seen There is no evidence for hydronephrosis at this point in time. No nephrolithiasis is seen. No claudio s are identified. The urinary bladder is anechoic. Bilateral ureteral jets are seen. IMPRESSION: No evidence of a bladder mass. No evidence of renal stone or obstruction. No evidence of renal mass.
[2021-06-20] MEDS: AZELASTINE 137MCG/SPRAY EA NOSTRIL SCH ×2 (17:48→21:13)
[2021-06-20] MEDS: ATORVASTATIN 80 MG TAB PO SCH (21:11)
[2021-06-21 02:04] LABS: Glucose,Whole Blood 129 mg/dL (75-99)
[2021-06-21] MEDS: NON FORMULARY DRUG (Lansoprazole [Prevacid] 30 MG Capsule.Dr) PO SCH ×3 (05:49→20:32)
[2021-06-21] MEDS: SUCRALFATE 1 GM TAB PO SCH ×2 (05:51→20:21)
[2021-06-21] MEDS: AZELASTINE 137MCG/SPRAY EA NOSTRIL SCH ×2 (08:54→20:33)
[2021-06-21] MEDS: ASCORBIC ACID 500 MG TAB PO SCH (08:54)
[2021-06-21] MEDS: ZINC SULFATE 220 MG CAP PO SCH (08:55)
[2021-06-21] MEDS: MONTELUKAST 10 MG TAB PO SCH (08:55)
[2021-06-21] MEDS: GABAPENTIN 300 MG CAP PO SCH ×3 (08:55→20:22)
[2021-06-21] MEDS: LORATADINE 10 MG TAB PO SCH (08:55)
[2021-06-21] MEDS: SODIUM BICARBONATE TAB 650 MG TAB PO SCH ×3 (08:55→20:21)
[2021-06-21] MEDS: MULTIVITAMINS, THERA 1 EACH TAB PO SCH (08:55)
[2021-06-21] MEDS: CLOPIDOGREL 75 MG TAB PO SCH (08:56)
[2021-06-21] MEDS: BACLOFEN 10 MG TAB PO SCH ×3 (08:56→20:31)
[2021-06-21] MEDS: FOLIC ACID 1 MG TAB PO SCH (08:56)
[2021-06-21] MEDS: CHOLECALCIFEROL 25 MCG (1000 IU) TABLET PO SCH (08:56)
[2021-06-21] MEDS: FAMOTIDINE 20 MG TAB PO SCH ×2 (08:57→20:22)
[2021-06-21] MEDS: FLUTICASONE 50MCG/SPRAY NASAL 16GM EA NOSTRIL SCH (08:58)
[2021-06-21] MEDS ORDERED: MAGNESIUM OXIDE 400 MG TAB PO SCH (09:00)
[2021-06-21] MEDS: TOPIRAMATE 25 MG TAB PO SCH ×2 (09:19→20:23)
[2021-06-21] MEDS: ASPIRIN 325 MG TAB PO SCH (09:19)
[2021-06-21] MEDS: ESCITALOPRAM 10 MG TAB PO SCH (09:19)
[2021-06-21] MEDS: ALBUTEROL NEBULIZED 2.5 MG/3 ML INHALATION SCH (09:24)
--- NOTE | 2021-06-21 10:30 | P.PN ---
Subjective Progress Note Date: 06/21/21 HISTORY OF PRESENT ILLNESS This is a pleasant 61-year-old lady, patient of [facility] with recent CVA with left hemiparesis, history of Crohn's disease status post ileostomy, asthma, GERD, neuropathy bilateral lower extremities last admitted in May 2021 for stroke following this patient was discharged to inpatient rehab. Patient was just discharged on and comes in today with acute onset of nausea and vomiting associated with decreased output from the ostomy . EMS was called and patient started having very low blood pressure. Patient responded very well to the fluids. . Was reviewed patient's afebrile pulse 80. Respiratory rate 16 blood pressure 105/66. Labs reviewed patient's sodium is improved to 137 bicarb improved to 12 creatinine is improved to 1.39. Urine analysis suggestive of infection. Patient received a dose of Rocephin in the ER. Urine culture sent. 06/21: Patient denies having any lightheadedness or dizziness, no nausea or vomiting. She is requiring help with pivots to the commode chair. We are increasing bicarb to 1300 mg 3 times daily. Repeat blood work ordered for tomorrow. Patient has been afebrile, heart rate 92, blood pressure 131/79, pulse ox 95% on room air. Urine culture is in progress to gram-negative bacilli. Blood culture no growth at 24 hours 2. Attempt to resolve this. Anticipated discharge for tomorrow. REVIEW OF SYSTEMS Constitutional: No fever, no chills, no night sweats. No weight change. No weakness, fatigue or lethargy. Noted daytime sleepiness. EENT: Reported headache. No blurred vision or double vision, no loss of vision. No loss of Hearing, no ringing in the ears, no dizziness. No nasal drainage or congestion. No epistaxis. No sore throat. Lungs: No shortness of breath, cough, no sputum production. No wheezing. Cardiovascular: No chest pain, no lower extremity edema. No palpitations. No paroxysmal nocturnal dyspnea. No orthopnea. No lightheadedness or dizziness. No syncopal episodes. Abdominal: No abdominal pain. No nausea, vomiting. No diarrhea. No constipation. No bloody or tarry stools. No loss of appetite. Genitourinary: No dysuria, increased frequency, urgency. No urinary retention. Musculoskeletal: No myalgias. Generalized muscle weakness on the left due to CVA, no gait dysfunction, no frequent falls. No back pain. No neck pain. Integumentary: No wounds, no lesions. No rash or pruritus. No unusual bruising. No change in hair or nails. Neurologic: Noted facial droop. No change in mentation. No head injury. No headache. Noted left paralysis. Psychiatric: No depression. No anxiety. No mood swings. Endocrine: No abnormal blood sugars. No weight change. No excessive sweating or thirst. No cold intolerance. PHYSICAL EXAMINATION Gen: This is a 61-year-old female. She is resting in chair and appears to be comfortable and in no acute distress. HEENT: Head is atraumatic, normocephalic. Pupils equal, round. Sclerae is anicteric. Left-sided neglect. Left facial droop. NECK: Supple. No JVD. No lymphadenopathy. No thyromegaly. LUNGS: Clear to auscultation. No wheezes or rhonchi. No intercostal retractions. loop recorder with out any skin changes HEART: Regular rate and rhythm. No murmur. ABDOMEN: Soft. Bowel sounds are present. No masses. No tenderness. EXTREMITIES: No pedal edema. No calf tenderness. NEUROLOGICAL: Patient is awake, alert and oriented x3. Cranial nerves 2 through 12 are grossly intact. Left-sided hemiplegia ASSESSMENT AND PLAN 1. Hypovolemic shock improved with fluids. 2. Nausea and vomiting likely acute gastroenteritis, resolved. Symptoms resolved. 3. Acute UTI Rocephin every 24 hours, urine culture and blood cultures. 4. Acute kidney injury secondary to dehydration. ATN suspected. Nephrology consulted. Sodium bicarb added by nephrology and increased today by medicine to 1303 times daily. 5. Left hemiparesis, secondary to acute CVA unclear etiology. Patient has a loop recorder in place. Continue Lipitor and Plavix. on baclofen for muscle spasm 6. History of Crohn's and ulcerative colitis, history of ileostomy with a bowel resection 7. Asthma without exacerbation on Singulair maintenance 8 GERD on lansoprazole 9 Dysthymia neuropathy, on gabapentin 10. Headache currently controlled on Topamax. Steroids were discontinued. 11. Restless leg syndrome on requip 2 mg po HS DVT prophylaxis GI prophylaxis COVID-19 testing negative. Patient has been hospitalized during a pandemic. DISCHARGE PLAN Home on Monday Impression and plan of care have been directed as dictated by the signing physician. Elida Curry nurse practitioner acting as scribe for signing samina boyer. Objective - Vital Signs Vital signs: Vital Signs Temp 98.2 F 06/21/21 04:00 Pulse 92 06/21/21 04:00 Resp 18 06/21/21 04:00 BP 131/79 06/21/21 04:00 Pulse Ox 95 06/21/21 04:00 Intake & Output 06/20/21 06/21/21 06/21/21 18:59 06:59 18:59 Output Total 400 550 Balance -400 -550 Output: Urine 400 Stool 550 Other: Voiding Method Bedside Commode Bedside Commode # Voids 1 2 # Bowel Movements 0 - Labs CBC & Chem 7: 06/20/21 08:35 06/20/21 08:35 Labs: Abnormal Lab Results - Last 24 Hours (Table) 06/20/21 06/20/21 06/21/21 Range/Units 08:35 08:35 01:57 WBC 10.9 H (3.8-10.6) k/uL MCHC 30.8 L (31.0-37.0) g/dL RDW 15.8 H (11.5-15.5) % Neutrophils # 7.8 H (1.3-7.7) k/uL Chloride 115 H (98-107) mmol/L Carbon Dioxide 12 L (22-30) mmol/L BUN 41 H (7-17) mg/dL Creatinine 1.39 H (0.52-1.04) mg/dL POC Glucose (mg/dL) 129 H (75-99) mg/dL ALT 63 H (4-34) U/L Total Protein 6.1 L (6.3-8.2) g/dL Albumin 3.3 L (3.5-5.0) g/dL Microbiology - Last 24 Hours (Table) 06/19/21 19:01 Blood Culture - Preliminary Blood No Growth after 24 hours 06/19/21 18:45 Blood Culture - Preliminary Blood No Growth after 24 hours 06/19/21 17:09 Urine Culture - Preliminary Urine,Voided Gram Neg Bacilli
[2021-06-21 13:14] VITALS: BMI 25.7
--- NOTE | 2021-06-21 13:28 | P.PN ---
Subjective Patient is a 61-year-old female seen for follow-up for acute kidney injury. Patient has underlying Crohn's disease and has had excessive output from her ileostomy. Blood pressure was low in the setting of use of SHIRA inhibitor's. Patient is currently status post IV fluids and overall feeling better. Patient was maintained on IV fluids. These are now discontinued as there was concern for volume overload. Serum creatinine has improved from 2.8-1.39. CO2 is improved from 9-12 today. No significant complaints today. Good urine output. Objective - Vital Signs Vital signs: Vital Signs Temp 98.2 F 06/21/21 04:00 Pulse 92 06/21/21 04:00 Resp 18 06/21/21 04:00 BP 131/79 06/21/21 04:00 Pulse Ox 95 06/21/21 04:00 Intake & Output 06/20/21 06/21/21 06/21/21 18:59 06:59 18:59 Output Total 400 550 Balance -400 -550 Weight 68.039 kg Output: Urine 400 Stool 550 Other: Voiding Method Bedside Commode Bedside Commode # Voids 1 2 # Bowel Movements 0 - Exam Patient is awake comfortable. She is not in any acute distress. Examination of the heart S1 and S2 Examination lungs bilateral breath sounds are heard Abdomen is soft nontender Examination lower extremities shows no evidence of edema. - Labs CBC & Chem 7: 06/20/21 08:35 06/20/21 08:35 Labs: Abnormal Lab Results - Last 24 Hours (Table) 06/21/21 Range/Units 01:57 POC Glucose (mg/dL) 129 H (75-99) mg/dL Microbiology - Last 24 Hours (Table) 06/19/21 19:01 Blood Culture - Preliminary Blood No Growth after 24 hours 06/19/21 18:45 Blood Culture - Preliminary Blood No Growth after 24 hours 06/19/21 17:09 Urine Culture - Preliminary Urine,Voided Gram Neg Bacilli Assessment and Plan Assessment: Acute kidney injury secondary to hypotension and volume depletion from excessive ileostomy output. Currently off of SHIRA inhibitor's and status post IV fluids with difficulty in improvement in renal function 2. Severe non-gap metabolic acidosis secondary to GI fluid loss, currently improved. Patient is entertained on oral sodium bicarb. 3. Mild hyponatremia hypovolemic currently improved 4. Recent left-sided CVA, status post discontinuation of estradiol 5. History of Crohn's disease with ileostomy Plan: Check labs today Continue with oral sodium bicarb
[2021-06-21 15:13] LABS: African American GFR (CKD) >90 (>60 ml/min/1.73 sqM); Anion Gap 7 mmol/L; Blood Urea Nitrogen 16 mg/dL (7-17); Carbon Dioxide 19 mmol/L (22-30); Chloride 111 mmol/L (98-107); Glucose 117 mg/dL (74-99); Non-African American GFR(CKD) >90 (>60 ml/min/1.73 sqM); Potassium 3.9 mmol/L (3.5-5.1); Sodium 137 mmol/L (137-145)
[2021-06-21] MEDS: Acetaminophen-Codeine 300-30mg TAB PO PRN ×2 (15:27→21:00)
[2021-06-21] MEDS: ATORVASTATIN 80 MG TAB PO SCH (20:22)
[2021-06-22] MEDS: SUCRALFATE 1 GM TAB PO SCH (05:50)
[2021-06-22] MEDS: Acetaminophen-Codeine 300-30mg TAB PO PRN (05:56)
[2021-06-22] MEDS: ALBUTEROL NEBULIZED 2.5 MG/3 ML INHALATION SCH (07:31)
[2021-06-22] MEDS: MONTELUKAST 10 MG TAB PO SCH (08:40)
[2021-06-22] MEDS: CLOPIDOGREL 75 MG TAB PO SCH (08:40)
[2021-06-22] MEDS: GABAPENTIN 300 MG CAP PO SCH (08:40)
[2021-06-22] MEDS: CHOLECALCIFEROL 25 MCG (1000 IU) TABLET PO SCH (08:40)
[2021-06-22] MEDS: TOPIRAMATE 25 MG TAB PO SCH (08:40)
[2021-06-22] MEDS: FAMOTIDINE 20 MG TAB PO SCH (08:41)
[2021-06-22] MEDS: MULTIVITAMINS, THERA 1 EACH TAB PO SCH (08:41)
[2021-06-22] MEDS: FOLIC ACID 1 MG TAB PO SCH (08:41)
[2021-06-22] MEDS: LORATADINE 10 MG TAB PO SCH (08:41)
[2021-06-22] MEDS: ESCITALOPRAM 10 MG TAB PO SCH (08:41)
[2021-06-22] MEDS: ASPIRIN 325 MG TAB PO SCH (08:41)
[2021-06-22] MEDS: SODIUM BICARBONATE TAB 650 MG TAB PO SCH (08:41)
[2021-06-22] MEDS: ASCORBIC ACID 500 MG TAB PO SCH (08:42)
[2021-06-22] MEDS: ZINC SULFATE 220 MG CAP PO SCH (08:42)
[2021-06-22] MEDS: BACLOFEN 10 MG TAB PO SCH (08:42)
[2021-06-22] MEDS: FLUTICASONE 50MCG/SPRAY NASAL 16GM EA NOSTRIL SCH (08:43)
[2021-06-22] MEDS: NON FORMULARY DRUG (Lansoprazole [Prevacid] 30 MG Capsule.Dr) PO SCH (08:43)
[2021-06-22] MEDS: AZELASTINE 137MCG/SPRAY EA NOSTRIL SCH (08:43)
--- NOTE | 2021-06-22 09:17 | P.DS ---
Providers Date of admission: 06/19/21 19:52 Expected date of discharge: 06/22/21 Attending physician: Kael Longo MD Consults: 06/19/21 19:53 Consult Physician Routine Consulting Provider: Rossy Portillo Consult Reason/Comments: Acute kidney injury, dehydration Do you want consulting provider notified?: Yes Primary care physician: [facility] Course: HISTORY OF PRESENT ILLNESS This is a pleasant 61-year-old lady, patient of [facility] with recent CVA with left hemiparesis, history of Crohn's disease status post ileostomy, asthma, GERD, neuropathy bilateral lower extremities last admitted in May 2021 for stroke following this patient was discharged to inpatient rehab. Patient was just discharged on and comes in today with acute onset of nausea and vom iting associated with decreased output from the ostomy . EMS was called and patient started having very low blood pressure. Patient responded very well to the fluids. . Was reviewed patient's afebrile pulse 80. Respiratory rate 16 blood pressure 105/66. Labs reviewed patient's sodium is improved to 137 bicarb improved to 12 creatinine is improved to 1.39. Urine analysis suggestive of infection. Patient received a dose of Rocephin in the ER. Urine culture sent. 06/21: Patient denies having any lightheadedness or dizziness, no nausea or vomiting. She is requiring help with pivots to the commode chair. We are increasing bicarb to 1300 mg 3 times daily. Repeat blood work ordered for tomorrow. Patient has been afebrile, heart rate 92, blood pressure 131/79, pulse ox 95% on room air. Urine culture is in progress to gram-negative bacilli. Blood culture no growth at 24 hours 2. Attempt to resolve this. Anticipated discharge for tomorrow. 06/22: Patient remains afebrile, heart rate in the 80s and 90s, blood pressure 130/76, pulse ox 96% on room air. Urine culture has been finalized with E. coli resistant to ampicillin/ampicillin sulbactam. Blood cultures no growth at 48 h ours. Renal ultrasound showed no evidence of bladder mass. No evidence of renal stone or obstruction. Repeat blood work reveals electrolytes and renal function normal. CO2 is 21.6. Patient will be discharged home today in stable condition. DISCHARGE DIAGNOSES Hypovolemic shock improved with fluids. Nausea and vomiting likely acute gastroenteritis, resolved. Acute UTI Acute kidney injury secondary to dehydration. ATN suspected. Severe non-gap metabolic acidosis Mild hyponatremia hypovolemic Left hemiparesis, secondary to acute CVA. History of Crohn's and ulcerative colitis, history of ileostomy with a bowel resection Asthma moderate intermittent GERD Dysthymia neuropathy Headache Restless leg syndrome DISCHARGE PLAN Home Greater than 35 minutes was utilized and coordinating patient's discharge. Impression and plan of care have been directed as dictated by the signing physician. Elida Curry nurse practitioner acting as scribe for signing physician. Patient Condition at Discharge: Good Plan - Discharge Summary Discharge Rx Participant: No New Discharge Prescriptions: New Baclofen [Lioresal] 10 mg PO TID #90 tablet Cefuroxime Axetil [Ceftin] 500 mg PO BID 5 Days #10 tab Continue Azelastine HCl 1 spray EA NOSTRIL BID Montelukast [Singulair] 10 mg PO DAILY Levalbuterol Hfa Inhaler [Xopenex Hfa Inhaler] 1 - 2 puff INHALATION RT-DAILY Cyanocobalamin [Vitamin B-12 Injection] 1.5 ml IM QMONTH Famotidine [Pepcid] 20 mg PO BID Fexofenadine HCl [Maria Luz Allergy] 180 mg PO DAILY Escitalopram [Lexapro] 10 mg PO DAILY Lansoprazole [Prevacid] 30 mg PO BID Ascorbic Acid [Vitamin C] 500 mg PO DAILY Aspirin 325 mg PO DAILY tab Ipratropium-Albuterol Nebulize [Duoneb 0.5 mg-3 mg/3 ml Soln] 3 ml INHALATION RT-QID PRN ml PRN Reason: Shortness Of Breath Or Wheezing Multivitamins, Thera [Multivitamin (formulary)] 1 tab PO DAILY Topiramate [Topamax] 25 mg PO BID Gabapentin 300 mg PO TID Acetaminophen-Codeine 300-30mg [Tylenol w/codeine #3] 1 tab PO Q4H PRN PRN Reason: Moderate Pain Folic Acid 0.4 mg PO DAILY Magnesium Oxide [Mag-Ox] 400 mg PO Q48H Zinc 50 mg PO DAILY Fluticasone Nasal [place] [Flonase Nasal [place]] 2 spray EA NOSTRIL DAILY gm Atorvastatin [Lipitor] 80 mg PO HS tab Clopidogrel [Plavix] 75 mg PO DAILY tab lisinopriL [Zestril] 10 mg PO DAILY tab Cholecalciferol [Vitamin D3 (25 Mcg = 1000 Iu)] 25 mcg PO DAILY Albuterol Sulfate [Albuterol Sulfate Hfa] 2 puff PO RT-Q4H PRN PRN Reason: Wheezing rOPINIRole HCL [Requip] 2 mg PO HS Discharge Medication List Azelastine HCl 1 spray EA NOSTRIL BID 11/20/14 [History] Cyanocobalamin [Vitamin B-12 Injection] 1.5 ml IM QMONTH 11/20/14 [History] Levalbuterol Hfa Inhaler [Xopenex Hfa Inhaler] 1 - 2 puff INHALATION RT-DAILY 11/20/14 [History] Montelukast [Singulair] 10 mg PO DAILY 11/20/14 [History] Famotidine [Pepcid] 20 mg PO BID 07/11/19 [History] Escitalopram [Lexapro] 10 mg PO DAILY 03/11/20 [History] Fexofenadine HCl [Maria Luz Allergy] 180 mg PO DAILY 03/11/20 [History] Lansoprazole [Prevacid] 30 mg PO BID 05/07/20 [History] Ascorbic Acid [Vitamin C] 500 mg PO DAILY 05/10/21 [History] Folic Acid 0.4 mg PO DAILY 05/10/21 [History] Magnesium Oxide [Mag-Ox] 400 mg PO Q48H 05/10/21 [History] Zinc 50 mg PO DAILY 05/10/21 [History] Aspirin 325 mg PO DAILY tab 05/17/21 [Rx] Atorvastatin [Lipitor] 80 mg PO HS tab 05/17/21 [Rx] Clopidogrel [Plavix] 75 mg PO DAILY tab 05/17/21 [Rx] Fluticasone Nasal [place] [Flonase Nasal [place]] 2 spray EA NOSTRIL DAILY gm 05/17/21 [Rx] Ipratropium-Albuterol Nebulize [Duoneb 0.5 mg-3 mg/3 ml Soln] 3 ml INHALATION RT-QID PRN ml 05/17/21 [Rx] lisinopriL [Zestril] 10 mg PO DAILY tab 05/17/21 [Rx] Acetaminophen-Codeine 300-30mg [Tylenol w/codeine #3] 1 tab PO Q4H PRN 06/19/21 [History] Albuterol Sulfate [Albuterol Sulfate Hfa] 2 puff PO RT-Q4H PRN 06/19/21 [History] Cholecalciferol [Vitamin D3 (25 Mcg = 1000 Iu)] 25 mcg PO DAILY 06/19/21 [History] Gabapentin 300 mg PO TID 06/19/21 [History] Multivitamins, Thera [Multivitamin (formulary)] 1 tab PO DAILY 06/19/21 [History] Topiramate [Topamax] 25 mg PO BID 06/19/21 [History] rOPINIRole HCL [Requip] 2 mg PO HS 06/19/21 [History] Baclofen [Lioresal] 10 mg PO TID #90 tablet 06/22/21 [Rx] Cefuroxime Axetil [Ceftin] 500 mg PO BID 5 Days #10 tab 06/22/21 [Rx] Follow up Appointment(s)/Referral(s): Isak Milligan MD [Primary Care Provider] - 1 Week (Called three times and got a voicemail please call and schedule a follow up appointment.) Ajit [facility], [NON-STAFF] - 1 Week Cheyanne Alberto [NON-STAFF] - 1 Week Discharge Disposition: HOME WITH HOME HEALTH SERVICES
[2021-06-22 13:02] LABS: African American GFR (CKD) 111.6 (60.0-200.0); Albumin 3.4 g/dL (3.8-4.9); Albumin/Globulin Ratio 1.68 (1.60-3.17); Anion Gap 11.1 mmol/L (10.00-18.00); BUN/Creat Ratio 20.49 Ratio (12.00-20.00); Blood Urea Nitrogen 13.4 mg/dL (9.0-27.0); Calcium 9.1 mg/dL (8.7-10.3); Carbon Dioxide 21.6 mmol/L (20.0-27.5); Non-African American GFR(CKD) 96.3 (60.0-200.0); Total Bilirubin 0.3 mg/dL (0.30-1.20); Total Protein 5.4 g/dL (6.2-8.2)
[2021-06-22 13:14] VITALS: BP 130/72; PULSE 90; RESP 18; TEMP 97.7
--- NOTE | 2021-06-22 15:30 | P.PN ---
Subjective Patient is a 61-year-old female seen for follow-up for acute kidney injury. Patient has underlying Crohn's disease and has had excessive output from her ileostomy. Blood pressure was low in the setting of use of SHIRA inhibitor's. Patient is currently status post IV fluids and overall feeling better. Patient was maintained on IV fluids. These are now discontinued as there was concern for volume overload. Serum creatinine has improved from 2.8 to 0.7 today. CO2 is improved from 9-21 today. No significant complaints today. Good urine output. Objective - Vital Signs Vital signs: Vital Signs Temp 97.7 F 06/22/21 13:12 Pulse 90 06/22/21 13:12 Resp 18 06/22/21 13:12 BP 130/72 06/22/21 13:12 Pulse Ox 95 06/22/21 13:12 Intake & Output 06/21/21 06/22/21 06/22/21 18:59 06:59 18:59 Output Total 650 600 500 Balance -650 -600 -500 Weight 68.039 kg Output: Urine 150 Stool 500 600 500 Other: Voiding Method Bedside Commode Bedside Commode Bedside Commode # Voids 2 1 - Exam Patient is awake comfortable. She is not in any acute distress. Examination of the heart S1 and S2 Examination lungs bilateral breath sounds are heard Abdomen is soft nontender Examination lower extremities shows no evidence of edema. - Labs CBC & Chem 7: 06/20/21 08:35 06/22/21 07:25 Labs: Abnormal Lab Results - Last 24 Hours (Table) 06/22/21 Range/Units 07:25 BUN/Creatinine Ratio 20.49 H (12.00-20.00) Ratio ALT 61 H (8-44) U/L Total Protein 5.4 L (6.2-8.2) g/dL Albumin 3.4 L (3.8-4.9) g/dL Microbiology - Last 24 Hours (Table) 06/19/21 19:01 Blood Culture - Preliminary Blood No Growth after 48 hours 06/19/21 18:45 Blood Culture - Preliminary Blood No Growth after 48 hours 06/19/21 17:09 Urine Culture - Final Urine,Voided Escherichia coli Assessment and Plan Assessment: Acute kidney injury secondary to hypotension and volume depletion from excessive ileostomy output. Currently off of SHIRA inhibitor's and status post IV fluids with difficulty in improvement in renal function 2. Severe non-gap metabolic acidosis secondary to GI fluid loss, currently improved. Patient is entertained on oral sodium bicarb. 3. Mild hyponatremia hypovolemic currently improved 4. Recent left-sided CVA, status post discontinuation of estradiol 5. History of Crohn's disease with ileostomy Plan: OK for discharge. Check labs as out patient Continue with oral sodium bicarb
[2021-07-17] MEDS ORDERED: CYANOCOBALAMIN 1,000 MCG/ML 1 ML VIAL IM SCH (09:00)
== END 2021-06-22 15:04 | disposition home health service (06) | DRG 682 ==
LOC: EC 14:39 → 3SCARD 19:52 → 5NMEDONC 06-20 19:56
PROVIDERS: ADMIT Internal Medicine; ATTEND Internal Medicine
DX: N17.0 Acute kidney failure with tubular necrosis (principal); R57.1 Hypovolemic shock; E87.1 Hypo-osmolality and hyponatremia; E87.2 Acidosis; I69.354 Hemiplegia and hemiparesis following cerebral infarction affecting left non-dominant side; K50.90 Crohn's disease, unspecified, without complications; N39.0 Urinary tract infection, site not specified; Z16.11 Resistance to penicillins; Z20.822 Contact with and (suspected) exposure to COVID-19; R62.7 Adult failure to thrive; R29.810 Facial weakness; K21.9 Gastro-esophageal reflux disease without esophagitis; E87.5 Hyperkalemia; F34.1 Dysthymic disorder; G25.81 Restless legs syndrome; G62.9 Polyneuropathy, unspecified; J45.909 Unspecified asthma, uncomplicated; Z79.02 Long term (current) use of antithrombotics/antiplatelets; Z79.82 Long term (current) use of aspirin; Z79.899 Other long term (current) drug therapy; Z82.49 Family history of ischemic heart disease and other diseases of the circulatory system; Z90.710 Acquired absence of both cervix and uterus; Z93.2 Ileostomy status; Z90.49 Acquired absence of other specified parts of digestive tract; Z87.19 Personal history of other diseases of the digestive system
CPT/HCPCS: 36415; 71046; 76770; 80048; 80053; 81001; 82550; 83690; 83735; 84484; 85025; 87040; 87077; 87086; 87186; 87635; 93005; 94640; 96374; 99285

== ENCOUNTER 2021-07-05 18:21 | Observation (INO) | payer MEDICAID ==
[2021-07-05] MEDS ORDERED: SODIUM CHLORIDE 0.9% 1,000 ML IV STA (18:55)
--- NOTE | 2021-07-05 19:01 | ED ---
Weakness HPI - General Chief complaint: Weakness Stated complaint: weakness Time Seen by Provider: 07/05/21 18:49 Source: EMS, RN notes reviewed Mode of arrival: EMS - History of Present Illness Initial comments: This is a pleasant 7-year-old female with history of asthma, previous CVA with left-sided residual weakness. She presents to the emergency family today comp laining of generalized weakness and fatigue. She states started this morning when she felt like she didn't want to get out of bed. Patient is denying any pain. He denies any chest pain or shortness of breath. No abdominal pain. No nausea or vomiting. No changes in urination or bowel movements. No changes in diet or fluid intake. Good immunized against COVID-19. Patient states she is able ambulate with her walker. Currently she is having OTM and physical therapy as she did have her CVA with TPA administration on April 08. She states she was here in May with dehydration due to similar symptoms. She also had an acute kidney injury at that time. As her urine is concentrated but she is still producing. No irritative voiding. No headache, no fever or chills, no changes in vision or hearing, no sore throat or difficulty with speech, no neck pain, no chest pain or shortness of breath, no abdominal pain, no nausea or vomiting, no changes in urination or bowel mov ements, no numbness or tingling, no extremity pain, no skin rashes or lesions. - Related Data Home Medications Medication Instructions Recorded Confirmed Azelastine HCl 1 spray EA NOSTRIL BID 11/20/14 06/19/21 Cyanocobalamin [Vitamin B-12 1.5 ml IM QMONTH 11/20/14 06/19/21 Injection] Levalbuterol Hfa Inhaler [Xopenex 1 - 2 puff INHALATION RT-DAILY 11/20/14 06/19/21 Hfa Inhaler] Montelukast [Singulair] 10 mg PO DAILY 11/20/14 06/19/21 Famotidine [Pepcid] 20 mg PO BID 07/11/19 06/19/21 Escitalopram [Lexapro] 10 mg PO DAILY 03/11/20 06/19/21 Fexofenadine HCl [Maria Luz Allergy] 180 mg PO DAILY 03/11/20 06/19/21 Lansoprazole [Prevacid] 30 mg PO BID 05/07/20 06/19/21 Ascorbic Acid [Vitamin C] 500 mg PO DAILY 05/10/21 06/19/21 Folic Acid 0.4 mg PO DAILY 05/10/21 06/19/21 Magnesium Oxide [Mag-Ox] 400 mg PO Q48H 05/10/21 06/19/21 Zinc 50 mg PO DAILY 05/10/21 06/19/21 Acetaminophen-Codeine 300-30mg 1 tab PO Q4H PRN 06/19/21 06/19/21 [Tylenol w/codeine #3] Albuterol Sulfate [Albuterol 2 puff PO RT-Q4H PRN 06/19/21 06/19/21 Sulfate Hfa] Cholecalciferol [Vitamin D3 (25 25 mcg PO DAILY 06/19/21 06/19/21 Mcg = 1000 Iu)] Gabapentin 300 mg PO TID 06/19/21 06/19/21 Multivitamins, Thera [Multivitamin 1 tab PO DAILY 06/19/21 06/19/21 (formulary)] Topiramate [Topamax] 25 mg PO BID 06/19/21 06/19/21 rOPINIRole HCL [Requip] 2 mg PO HS 06/19/21 06/19/21 Previous Rx's Medication Instructions Recorded Aspirin 325 mg PO DAILY tab 05/17/21 Atorvastatin [Lipitor] 80 mg PO HS tab 05/17/21 Clopidogrel [Plavix] 75 mg PO DAILY tab 05/17/21 Fluticasone Nasal [place] [Flonase 2 spray EA NOSTRIL DAILY gm 05/17/21 Nasal [place]] Ipratropium-Albuterol Nebulize 3 ml INHALATION RT-QID PRN ml 05/17/21 [Duoneb 0.5 mg-3 mg/3 ml Soln] lisinopriL [Zestril] 10 mg PO DAILY tab 05/17/21 Baclofen [Lioresal] 10 mg PO TID #90 tablet 06/22/21 Cefuroxime Axetil [Ceftin] 500 mg PO BID 5 Days #10 tab 06/22/21 Allergies Allergy/AdvReac Type Severity Reaction Status Date / Time esomeprazole magnesium Allergy Abdominal Verified 06/19/21 14:56 [From Nexium] Pain hydrocodone [From [place]] Allergy Anaphylaxis Verified 06/19/21 14:56 hydromorphone HCl Allergy severe Verified 06/19/21 14:56 [From Dilaudid] bradycardia karaya gum Allergy sultana Verified 06/19/21 14:56 [From Karaya Paste] omeprazole Allergy Abdominal Verified 06/19/21 14:56 Pain pantoprazole sodium Allergy Abdominal Verified 06/19/21 14:56 [From Protonix] Pain prednisone Allergy Rapid Verified 06/19/21 14:56 Heart Rate,psychotic methylphenidate HCl AdvReac Chest Pain Verified 06/19/21 14:56 [From Ritalin] Review of Systems ROS Statement: Those systems with pertinent positive or pertinent negative responses have been documented in the HPI. ROS Other: All systems not noted in ROS Statement are negative. Past Medical History Past Medical History: Asthma, GERD/Reflux Additional Past Medical History / Comment(s): post menopausal bleeding, Hx colitis,ulcerative colitis,Crohn's,mono x2,swine flu 2011,rt elbow fx,rt wrist fx History of Any Multi-Drug Resistant Organisms: None Reported Past Surgical History: Bowel Resection, Cholecystectomy, Hysterectomy, Uterine Ablation Additional Past Surgical History / Comment(s): ileostomy,mult bowel resections with clips present, x2,sinus surgery. bilary diversion november 2019. loop recorder implant Past Anesthesia/Blood Transfusion Reactions: No Reported Reaction Additional Past Anesthesia/Blood Transfusion Reaction / Comment(s): blood transfusion 1981-no problems,Takes a while to wake up from anesthesia, nephew had seizure after anesthesia, no malignant hyperthermia that she knows of Past Psychological History: No Psychological Hx Reported Smoking Status: Never smoker Past Alcohol Use History: None Reported Past Drug Use History: None Reported - Past Family History Father Family Medical History: Congestive Heart Failure (CHF), GERD/Reflux, Hypertension Additional Family Medical History / Comment(s): pancreatitis Mother Family Medical History: GERD/Reflux, Hypertension General Exam - General Exam Comments Initial Comments: 7-year-old female in no significant distress. Patient does not appear to be ill or toxic. She does appear to be deconditioned. Cranial nerves II through XII are grossly intact as tested. Patient does have residual paralysis of the left upper extremity and paresis of the left leg. This is baseline. General appearance: alert, in no apparent distress Head exam: Present: atraumatic, normocephalic, normal inspection Eye exam: Present: normal appearance, PERRL, EOMI. Absent: scleral icterus, conjunctival injection, periorbital swelling ENT exam: Present: normal exam, mucous membranes moist Neck exam: Present: normal inspection, full ROM. Absent: tenderness, meningismus, lymphadenopathy Respiratory exam: Present: normal lung sounds bilaterally. Absent: respiratory distress, wheezes, rales, rhonchi, stridor Cardiovascular Exam: Present: regular rate, normal rhythm, normal heart sounds. Absent: systolic murmur, diastolic murmur, rubs, gallop, clicks GI/Abdominal exam: Present: soft, normal bowel sounds. Absent: distended, tenderness, guarding, rebound, rigid, organomegaly, mass Extremities exam: Present: normal inspection, full ROM, normal capillary refill. Absent: tenderness, pedal edema, joint swelling, calf tenderness Back exam: Present: normal inspection Neurological exam: Present: alert, oriented X3, CN II-XII intact, other (Baseline left sided paralysis of the arm and hand left-sided paresis of left leg) Psychiatric exam: Present: normal affect, normal mood Skin exam: Present: warm, dry, intact, normal color. Absent: rash Course Vital Signs 07/05/21 07/05/21 18:48 20:30 Temperature 98.3 F Pulse Rate 91 87 Respiratory 14 16 Rate Blood Pressure 104/48 116/60 O2 Sat by Pulse 95 98 Oximetry - Reevaluation(s) Reevaluation #1: Medical record is reviewed Symptoms are improved here in the emergency department Patient is informed of results and questions answered Patient in no distress 07/05/21 21:02 EKG Findings - EKG Comments: EKG Findings:: EKG reveals sinus rhythm with a rate of 93, normal intervals, low voltage in precordial leads, no acute ST or T-wave changes. Normal axis. Normal QRS morphology Medical Decision Making - Medical Decision Making Patient presents with generalized weakness. Differential would include infectious etiology versus inflammatory etiology. Possible electrolyte disturbance. Possible dehydration. Less likely to be cardiac ischemia. However we will order diagnostics and plan for reevaluation. The case was discussed in detail with ED attending physician. Presentation, findings, treatment plan discussed in detail. Case discussed in detail with the patient's primary care physician, Dr. Milligan to admit the patient for hydration and reevaluation - Lab Data Result diagrams: 07/05/21 19:40 07/05/21 19:46 Lab Results 07/05/21 07/05/21 07/05/21 Range/Units 19:40 19:40 19:46 WBC 6.9 (3.8-10.6) k/uL RBC 4.22 (3.80-5.40) m/uL Hgb 12.3 (11.4-16.0) gm/dL Hct 38.5 (34.0-46.0) % MCV 91.2 (80.0-100.0) fL MCH 29.1 (25.0-35.0) pg MCHC 32.0 (31.0-37.0) g/dL RDW 15.8 H (11.5-15.5) % Plt Count 386 (150-450) k/uL MPV 7.2 Neutrophils % 56 % Lymphocytes % 32 % Monocytes % 7 % Eosinophils % 2 % Basophils % 1 % Neutrophils # 3.9 (1.3-7.7) k/uL Lymphocytes # 2.2 (1.0-4.8) k/uL Monocytes # 0.5 (0-1.0) k/uL Eosinophils # 0.2 (0-0.7) k/uL Basophils # 0.1 (0-0.2) k/uL Hypochromasia Slight Sodium 136 L (137-145) mmol/L Potassium 4.6 (3.5-5.1) mmol/L Chloride 110 H (98-107) mmol/L Carbon Dioxide 14 L (22-30) mmol/L Anion Gap 12 mmol/L BUN 27 H (7-17) mg/dL Creatinine 1.59 H (0.52-1.04) mg/dL Est GFR (CKD-EPI)AfAm 40 (>60 ml/min/1.73 sqM) Est GFR (CKD-EPI)NonAf 35 (>60 ml/min/1.73 sqM) Glucose 107 H (74-99) mg/dL Calcium 9.3 (8.4-10.2) mg/dL Phosphorus 5.7 H (2.5-4.5) mg/dL Magnesium 1.9 (1.6-2.3) mg/dL Total Bilirubin 0.6 (0.2-1.3) mg/dL AST 33 (14-36) U/L ALT 51 H (4-34) U/L Alkaline Phosphatase 139 H (38-126) U/L Troponin I <0.012 (0.000-0.034) ng/mL Total Protein 6.9 (6.3-8.2) g/dL Albumin 3.8 (3.5-5.0) g/dL Urine Color Urine Appearance (Clear) Urine pH (5.0-8.0) Ur Specific [place] (1.001-1.035) Urine Protein (Negative) Urine Glucose (UA) (Negative) Urine Ketones (Negative) Urine Blood (Negative) Urine Nitrite (Negative) Urine Bilirubin (Negative) Urine Urobilinogen (<2.0) mg/dL Ur Leukocyte Esterase (Negative) Urine RBC (0-5) /hpf Urine WBC (0-5) /hpf Ur Squamous Epith Cells (0-4) /hpf Urine Bacteria (None) /hpf Hyaline Casts (0-2) /lpf Urine Mucus (None) /hpf Coronavirus (PCR) (Not Detectd) 07/05/21 07/05/21 Range/Units 20:08 20:11 WBC (3.8-10.6) k/uL RBC (3.80-5.40) m/uL Hgb (11.4-16.0) gm/dL Hct (34.0-46.0) % MCV (80.0-100.0) fL MCH (25.0-35.0) pg MCHC (31.0-37.0) g/dL RDW (11.5-15.5) % Plt Count (150-450) k/uL MPV Neutrophils % % Lymphocytes % % Monocytes % % Eosinophils % % Basophils % % Neutrophils # (1.3-7.7) k/uL Lymphocytes # (1.0-4.8) k/uL Monocytes # (0-1.0) k/uL Eosinophils # (0-0.7) k/uL Basophils # (0-0.2) k/uL Hypochromasia Sodium (137-145) mmol/L Potassium (3.5-5.1) mmol/L Chloride (98-107) mmol/L Carbon Dioxide (22-30) mmol/L Anion Gap mmol/L BUN (7-17) mg/dL Creatinine (0.52-1.04) mg/dL Est GFR (CKD-EPI)AfAm (>60 ml/min/1.73 sqM) Est GFR (CKD-EPI)NonAf (>60 ml/min/1.73 sqM) Glucose (74-99) mg/dL Calcium (8.4-10.2) mg/dL Phosphorus (2.5-4.5) mg/dL Magnesium (1.6-2.3) mg/dL Total Bilirubin (0.2-1.3) mg/dL AST (14-36) U/L ALT (4-34) U/L Alkaline Phosphatase (38-126) U/L Troponin I (0.000-0.034) ng/mL Total Protein (6.3-8.2) g/dL Albumin (3.5-5.0) g/dL Urine Color Light Yellow Urine Appearance Clear (Clear) Urine pH 5.0 (5.0-8.0) Ur Specific [place] 1.011 (1.001-1.035) Urine Protein Negative (Negative) Urine Glucose (UA) Negative (Negative) Urine Ketones Negative (Negative) Urine Blood Negative (Negative) Urine Nitrite Negative (Negative) Urine Bilirubin Negative (Negative) Urine Urobilinogen <2.0 (<2.0) mg/dL Ur Leukocyte Esterase Small H (Negative) Urine RBC 2 (0-5) /hpf Urine WBC 4 (0-5) /hpf Ur Squamous Epith Cells <1 (0-4) /hpf Urine Bacteria Rare H (None) /hpf Hyaline Casts 95 H (0-2) /lpf Urine Mucus Rare H (None) /hpf Coronavirus (PCR) Not Detected (Not Detectd) Disposition Clinical Impression: Dehydration, Acute kidney injury, Hyperphosphatemia, General weakness Disposition: ADMITTED IP TO THIS [facility] Condition: Stable Referrals: Isak Milligan MD [Primary Care Provider] - 1-2 days Time of Disposition: 21:24
[2021-07-05 20:11] LABS: Albumin 3.8 g/dL (3.5-5.0); Calcium 9.3 mg/dL (8.4-10.2); Magnesium 1.9 mg/dL (1.6-2.3); Phosphorus 5.7 mg/dL (2.5-4.5); Potassium 4.6 mmol/L (3.5-5.1); Total Bilirubin 0.6 mg/dL (0.2-1.3); Total Protein 6.9 g/dL (6.3-8.2)
--- NOTE | 2021-07-05 20:38 | XR ---
EXAMINATION TYPE: XR chest 2V DATE OF EXAM: 07/05/2021 8:26 PM COMPARISON:Chest radiographs from 06/19/2021 TECHNIQUE: XR chest 2V Frontal and lateral views of the chest. CLINICAL INDICATION:Female, 61 years old with history of Weakness; FINDINGS: Lungs/Pleura: There is no evidence of pleural effusion, focal consolidation, or pneumothorax. Pulmonary vascularity: Unremarkable. Heart/mediastinum: Cardiomediastinal silhouette is unremarkable. A loop recorder projects over the le ft thorax over the heart. Musculoskeletal: No acute osseous pathology. IMPRESSION: No acute cardiopulmonary disease/process.
[2021-07-05 20:49] LABS: Basophils # (A) 0.1 k/uL (0-0.2); Basophils % (A) 1 %; Eosinophils # (A) 0.2 k/uL (0-0.7); Eosinophils % (A) 2 %; HCT 38.5 % (34.0-46.0); HGB 12.3 gm/dL (11.4-16.0); Hypochromasia Slight; Lymphocytes # (A) 2.2 k/uL (1.0-4.8); Lymphocytes % (A) 32 %; MCH 29.1 pg (25.0-35.0); MCV 91.2 fL (80.0-100.0); Mean Platelet Volume 7.2; Monocytes # (A) 0.5 k/uL (0-1.0); Monocytes % (A) 7 %; Neutrophils # (A) 3.9 k/uL (1.3-7.7); Neutrophils % (A) 56 %; Platelet Count 386 k/uL (150-450); RBC 4.22 m/uL (3.80-5.40); RDW 15.8 % (11.5-15.5); WBC 6.9 k/uL (3.8-10.6)
[2021-07-05 20:55] LABS: Appearance,Urine Clear (Clear); Bacteria,Urine Rare /hpf; Bilirubin,Urine Negative (Negative); Blood,Urine Negative (Negative); Color,Urine Light Yellow; Glucose,Urine (UA) Negative (Negative); Hyaline Casts,Urine 95 /lpf (0-2); Ketones,Urine Negative (Negative); Leukocyte Esterase,Urine Small (Negative); Mucus,Urine Rare /hpf; Nitrite,Urine Negative (Negative); Protein,Urine Negative (Negative); RBC,Urine 2 /hpf (0-5); Specific Gravity,Urine 1.011 (1.001-1.035); Squamous Epithelial Cell,Urine <1 /hpf (0-4); Urobilinogen,Urine <2.0 mg/dL (<2.0); WBC,Urine 4 /hpf (0-5)
[2021-07-05] MEDS ORDERED: SODIUM CHLORIDE 0.9% 500 ML 500 ML IV ONE (21:04)
[2021-07-05] MEDS ORDERED: MELATONIN 3 MG TABLET PO PRN (21:38)
[2021-07-05] MEDS ORDERED: NALOXONE 0.4 MG/ML 1 ML VIAL IV PRN (21:38)
[2021-07-05] MEDS ORDERED: ONDANSETRON 4 MG/2 ML VIAL IVP PRN (21:38)
[2021-07-05] MEDS ORDERED: ACETAMINOPHEN TAB 325 MG TAB PO PRN (21:38)
[2021-07-05] MEDS ORDERED: IPRATROPIUM-ALBUTEROL 3 ML NEB INHALATION PRN (21:41)
[2021-07-06] MEDS: SODIUM CHLORIDE 0.9% 1,000 ML IV SCH ×2 (04:58→15:36)
[2021-07-06 06:34] LABS: Basophils # (A) 0.1 k/uL (0-0.2); Basophils % (A) 1 %; Eosinophils # (A) 0.1 k/uL (0-0.7); Eosinophils % (A) 2 %; HCT 36.4 % (34.0-46.0); HGB 11.3 gm/dL (11.4-16.0); Hypochromasia Marked; Lymphocytes # (A) 2.1 k/uL (1.0-4.8); Lymphocytes % (A) 36 %; MCH 29.6 pg (25.0-35.0); MCHC 31.1 g/dL (31.0-37.0); MCV 95.3 fL (80.0-100.0); Mean Platelet Volume 6.7; Monocytes # (A) 0.3 k/uL (0-1.0); Monocytes % (A) 6 %; Neutrophils # (A) 3.1 k/uL (1.3-7.7); Neutrophils % (A) 52 %; Platelet Count 412 k/uL (150-450); RBC 3.82 m/uL (3.80-5.40); RDW 15.8 % (11.5-15.5); WBC 5.9 k/uL (3.8-10.6)
[2021-07-06 06:44] LABS: Albumin 2.9 g/dL (3.5-5.0); Calcium 8.7 mg/dL (8.4-10.2); Magnesium 1.8 mg/dL (1.6-2.3); Phosphorus 5.3 mg/dL (2.5-4.5); Potassium 4.4 mmol/L (3.5-5.1); Total Bilirubin 0.3 mg/dL (0.2-1.3); Total Protein 5.7 g/dL (6.3-8.2)
[2021-07-06] MEDS: GABAPENTIN 300 MG CAP PO SCH ×3 (07:38→20:32)
[2021-07-06] MEDS: BACLOFEN 10 MG TAB PO SCH ×3 (07:38→20:32)
[2021-07-06] MEDS: Acetaminophen-Codeine 300-30mg TAB PO PRN ×3 (07:38→20:44)
[2021-07-06] MEDS: TOPIRAMATE 25 MG TAB PO SCH ×2 (07:38→20:32)
[2021-07-06] MEDS: SUCRALFATE 1 GM TAB PO SCH ×2 (07:38→20:31)
[2021-07-06] MEDS ORDERED: NON FORMULARY DRUG (Levalbuterol Hfa Inhaler 200 PUFF/9 GM Inhaler) INHALATION PRN (10:44)
[2021-07-06] MEDS ORDERED: ALBUTEROL HFA INHALER INHALATION PRN (10:44)
[2021-07-06] MEDS ORDERED: ONDANSETRON ODT 4 MG TAB PO PRN (10:44)
[2021-07-06] MEDS ORDERED: CYANOCOBALAMIN 1,000 MCG/ML 1 ML VIAL IM SCH (10:45)
[2021-07-06 12:15] LABS: Appearance,Urine Clear (Clear); Bilirubin,Urine Negative (Negative); Blood,Urine Negative (Negative); Color,Urine Light Yellow; Glucose,Urine (UA) Negative (Negative); Ketones,Urine Negative (Negative); Leukocyte Esterase,Urine Moderate (Negative); Mucus,Urine Rare /hpf; Nitrite,Urine Negative (Negative); PH, Urine 5.5 (5.0-8.0); Protein,Urine Negative (Negative); RBC,Urine <1 /hpf (0-5); Specific Gravity,Urine 1.013 (1.001-1.035); Squamous Epithelial Cell,Urine 4 /hpf (0-4); Urobilinogen,Urine <2.0 mg/dL (<2.0); WBC,Urine 2 /hpf (0-5)
--- NOTE | 2021-07-06 13:16 | P.HPIM ---
History of Present Illness H&P Date: 07/06/21 HISTORY OF PRESENT ILLNESS 61-year-old pleasant one of my office patient with past medical history of recent CVA with left side hemiparesis, who is known to have history of Crohn disease post subtotal colectomy and ileostomy, history of asthma, GERD, chronic neuropathy of the lower extremity was hospitalized in May 22 for stroke ended up going to rehab for over a month ended up going home with her family. Patient ended up in the hospital 2 weeks ago with significant hypovolemic shock related to intractable nausea vomiting along with gastroenteritis was quite bit dehydrated at the time. Was admitted for few days and sent home. Patient developed to have severe intractable tiredness fatigue nausea and dry heaves and generalized symptoms ended up coming to the emergency department at [facility] on 07/05/2021 were found to have acute kidney injury with creatinine a round 1.5 GFR is down in the 40s. Patient was severely dehydrated the time, also her urine test was not completely clear patient was started on Rocephin aggressive hydration admit patient to the hospital for the above symptoms. REVIEW OF SYSTEMS Constitutional: No fever, no chills, no night sweats. No weight change. No weakness, fatigue or lethargy. Noted daytime sleepiness. EENT: Reported headache. No blurred vision or double vision, no loss of vision. No loss of Hearing, no ringing in the ears, no dizziness. No nasal drainage or congestion. No epistaxis. No sore throat. Lungs: No shortness of breath, cough, no sputum production. No wheezing. Cardiovascular: No chest pain, no lower extremity edema. No palpitations. No paroxysmal nocturnal dyspnea. No orthopnea. No lightheadedness or dizziness. No syncopal episodes. Abdominal: No abdominal pain. No nausea, vomiting. No diarrhea. No constipation. No bloody or tarry stools. No loss of appetite. Genitourinary: No dysuria, increased frequency, urgency. No urinary retention. Musculoskeletal: No myalgias. No muscle weakness, no gait dysfunction, no frequent falls. No back pain. No neck pain. Integumentary: No wounds, no lesions. No rash or pruritus. No unusual bruising. No change in hair or nails. Neurologic: Noted facial droop. No change in mentation. No head injury. No headache. Noted left paralysis. Psychiatric: No depression. No anxiety. No mood swings. Endocrine: No abnormal blood sugars. No weight change. No excessive sweating or thirst. No cold intolerance. Social history: She does not smoke, no clear abuse, no illicit drug use, she is and lives with her . Family history: Father from symptoms of congestive heart failure and advance liver disease at the time. Mother is living in her 80s with history of hypertension hyperlipidemia. Patient had 4 siblings one of her sister had colitis, Chin has 2 children with no management problem. PHYSICAL EXAMINATION Gen: This is a 61-year-old female. She is resting in the ICU bed and appears to be comfortable at rest. is at bedside. HEENT: Head is atraumatic, normocephalic. Pupils equal, round. Sclerae is anicteric. Left-sided neglect. Left facial droop. NECK: Supple. No JVD. No lymphadenopathy. No thyromegaly. LUNGS: Clear to auscultation. No wheezes or rhonchi. No intercostal retra ctions. loop recorder with out any skin changes HEART: Regular rate and rhythm. No murmur. ABDOMEN: Soft. Bowel sounds are present. No masses. No tenderness. EXTREMITIES: No pedal edema. No calf tenderness. NEUROLOGICAL: Patient is awake, alert and oriented x3. Cranial nerves 2 through 12 are grossly intact. Left-sided hemiplegia ASSESSMENT AND PLAN 1 acute kidney injury: Patient creatinine was 1.59 with GFR this point at 35% only. Patient will be kept on 150 mL an hour hydration consult nephrology repeat lab in the next 24 hours continue aggressive management for now. 2 possible sepsis and UTI: Urine was not clear this point, patient be started on Rocephin 1 g daily we will do a clean catch by straight cath and send it for culture. 3 left-sided hemiparesis secondary to acute CVA from May 2021 90 clear etiology A. fib was not found at the time, patient still on secondary prevention been on atorvastatin, Plavix and aspirin. Continue PTOT. 4 chronic history of Crohn's disease and ulcerative colitis post ileostomy and bowel resection has been doing well. 5 recurrent history of ventral hernia post surgery has done very well so far. 6 severe gastritis and GERD: Patient has been on lansoprazole long with Carafate and Pepcid symptoms are better control so far. 7 history of asthma without excessive patient has been doing well with Singulair and Xopenex. 8 chronic neuropathy: Has been on gabapentin 300 mg 3 times a day continue medication. 9 severe recurrent restless leg syndrome: Since her stroke patient become much worse has been on Requip 2 mg at bedtime. 10 GI prophylaxis: Continue patient on PPI. 11 DVT prophylaxis: Patient will continue Venodyne boots and knee-high CANDY hose and subcutaneous heparin will be done as well. CODE STATUS: Full code. Admit patient to an observation status for 1-2 nights stay. Past Medical History Past Medical History: Asthma, CVA/TIA, GERD/Reflux Additional Past Medical History / Comment(s): post menopausal bleeding, Hx CVA 05/09/21 with residual left sided weakness, colitis,ulcerative colitis,Croh n's,mono x2,swine flu 2011,rt elbow fx,rt wrist fx History of Any Multi-Drug Resistant Organisms: None Reported Past Surgical History: Bowel Resection, Cholecystectomy, Hysterectomy, Uterine Ablation Additional Past Surgical History / Comment(s): ileostomy,mult bowel resections with clips present, x2,sinus surgery. bilary diversion november 2019. loop recorder implant Past Anesthesia/Blood Transfusion Reactions: No Reported Reaction Additional Past Anesthesia/Blood Transfusion Reaction / Comment(s): blood transfusion 1981-no problems,Takes a while to wake up from anesthesia, nephew had seizure after anesthesia, no malignant hyperthermia that she knows of Past Psychological History: No Psychological Hx Reported Smoking Status: Never smoker Past Alcohol Use History: None Reported Past Drug Use History: None Reported - Past Family History Father Family Medical History: Congestive Heart Failure (CHF), GERD/Reflux, Hypertension Additional Family Medical History / Comment(s): pancreatitis Mother Family Medical History: GERD/Reflux, Hypertension Medications and Allergies Home Medications Medication Instructions Recorded Confirmed Type Azelastine HCl 1 spray EA NOSTRIL BID@0900,2100 11/20/14 07/05/21 History Cyanocobalamin [Vitamin B-12 1.5 ml IM QMONTH 11/20/14 07/05/21 History Injection] Levalbuterol Hfa Inhaler [Xopenex 1 - 2 puff INHALATION RT-DAILY PRN 11/20/14 07/05/21 History Hfa Inhaler] Montelukast [Singulair] 10 mg PO HS@2100 11/20/14 03/07/22 History Famotidine [Pepcid] 20 mg PO BID@0900,209907/11/19 07/05/21 History Escitalopram [Lexapro] 10 mg PO DAILY@89903/11/20 07/05/21 History Fexofenadine HCl [Maria Luz Allergy] 180 mg PO DAILY@00 03/11/20 07/05/21 History Lansoprazole [Prevacid] 30 mg PO BID@0900,209905/07/20 07/05/21 History Ascorbic Acid [Vitamin C] 500 mg PO DAILY@89905/10/21 07/05/21 History Folic Acid 0.4 mg PO DAILY@89905/10/21 07/05/21 History Magnesium Oxide [Mag-Ox] 400 mg PO Q48H 05/10/21 07/05/21 History Zinc 50 mg PO DAILY@89905/10/21 07/05/21 History Acetaminophen-Codeine 300-30mg 1 tab PO Q4H PRN 06/19/21 07/05/21 History [Tylenol w/codeine #3] Albuterol Sulfate [Albuterol 2 puff INHALATION RT-Q4H PRN 06/19/21 07/05/21 History Sulfate Hfa] Cholecalciferol [Vitamin D3 (25 25 mcg PO DAILY@89906/19/21 07/05/21 History Mcg = 1000 Iu)] Gabapentin 300 mg PO TID@0900,1500,209906/19/21 07/05/21 History Multivitamins, Thera [Multivitamin 1 tab PO DAILY@89906/19/21 07/05/21 History (formulary)] Topiramate [Topamax] 25 mg PO BID@0900,209906/19/21 07/05/21 History rOPINIRole HCL [Requip] 2 mg PO HS@209906/19/21 07/05/21 History Aspirin 325 mg PO DAILY@89907/05/21 07/05/21 History Atorvastatin [Lipitor] 80 mg PO HS@209907/05/21 07/05/21 History Baclofen [Lioresal] 10 mg PO TID@0900,1500,209907/05/21 07/05/21 History Cholestyramine (with Sugar) 4 gm PO DAILY@0900 07/05/21 07/05/21 History [Cholestyramine Packet] Clopidogrel [Plavix] 75 mg PO DAILY@0907/05/21 07/05/21 History Fluticasone Nasal [place] [Flonase 2 spray EA NOSTRIL DAILY@0900 07/05/21 07/05/21 History Nasal [place]] Ondansetron Odt [Zofran Odt] 8 mg PO BID PRN 07/05/21 07/05/21 History Sodium Bicarbonate Tab 650 mg PO DAILY@0900 07/05/21 07/05/21 History Sucralfate [Carafate] 1 gm PO BID@0900,2100 07/05/21 07/05/21 History lisinopriL [Zestril] 10 mg PO DAILY@0900 07/05/21 07/05/21 History Allergies Allergy/AdvReac Type Severity Reaction Status Date / Time esomeprazole magnesium Allergy Abdominal Verified 07/05/21 21:54 [From Nexium] Pain hydrocodone [From [place]] Allergy Anaphylaxis Verified 07/05/21 21:54 hydromorphone HCl Allergy severe Verified 07/05/21 21:54 [From Dilaudid] bradycardia karaya gum Allergy sultana Verified 07/05/21 21:54 [From Karaya Paste] omeprazole Allergy Abdominal Verified 07/05/21 21:54 Pain pantoprazole sodium Allergy Abdominal Verified 07/05/21 21:54 [From Protonix] Pain prednisone Allergy Rapid Verified 07/05/21 21:54 Heart Rate,psychotic methylphenidate HCl AdvReac Chest Pain Verified 07/05/21 21:54 [From Ritalin] Physical Exam Vitals: Vital Signs Temp Pulse Pulse Resp BP BP Pulse Ox 07/06/21 07:34 97.8 F 112 H 18 111/73 99 07/06/21 07:31 94 L 07/06/21 01:13 97.9 F 95 16 100/64 97 07/06/21 00:29 98.2 F 100 16 102/76 95 07/05/21 20:30 87 16 116/60 98 07/05/21 18:48 98.3 F 91 14 104/48 95 Intake and Output 07/05/21 07/06/21 07/06/21 22:59 06:59 14:59 Output Total 400 Balance -400 Output: Urine 200 Stool 200 Other: Voiding Method Toilet Bedside Commode # Voids 1 # Bowel Movements 0 Weight 70.76 kg 70.76 kg Results CBC & Chem 7: 07/06/21 05:44 07/06/21 05:44 Labs: Abnormal Lab Results - Last 24 Hours (Table) 07/05/21 07/05/21 07/05/21 Range/Units 19:40 19:46 20:11 Hgb (11.4-16.0) gm/dL RDW 15.8 H (11.5-15.5) % Sodium 136 L (137-145) mmol/L Chloride 110 H (98-107) mmol/L Carbon Dioxide 14 L (22-30) mmol/L BUN 27 H (7-17) mg/dL Creatinine 1.59 H (0.52-1.04) mg/dL Glucose 107 H (74-99) mg/dL Phosphorus 5.7 H (2.5-4.5) mg/dL AST (14-36) U/L ALT 51 H (4-34) U/L Alkaline Phosphatase 139 H (38-126) U/L Total Protein (6.3-8.2) g/dL Albumin (3.5-5.0) g/dL Ur Leukocyte Esterase Small H (Negative) Urine Bacteria Rare H (None) /hpf Hyaline Casts 95 H (0-2) /lpf Urine Mucus Rare H (None) /hpf 07/06/21 07/06/21 Range/Units 05:44 05:44 Hgb 11.3 L (11.4-16.0) gm/dL RDW 15.8 H (11.5-15.5) % Sodium 135 L (137-145) mmol/L Chloride 113 H (98-107) mmol/L Carbon Dioxide 16 L (22-30) mmol/L BUN 23 H (7-17) mg/dL Creatinine 1.07 H (0.52-1.04) mg/dL Glucose (74-99) mg/dL Phosphorus 5.3 H (2.5-4.5) mg/dL AST 43 H (14-36) U/L ALT 50 H (4-34) U/L Alkaline Phosphatase (38-126) U/L Total Protein 5.7 L (6.3-8.2) g/dL Albumin 2.9 L (3.5-5.0) g/dL Ur Leukocyte Esterase (Negative) Urine Bacteria (None) /hpf Hyaline Casts (0-2) /lpf Urine Mucus (None) /hpf Thrombosis Risk Factor Assmnt - Choose All That Apply Each Factor Represents 1 point: Age 41-60 years, Obesity (BMI >25) Thrombosis Risk Factor Assessment Total Risk Factor Score: 2 Thrombosis Risk Factor Assessment Level: Low Risk
[2021-07-06] MEDS: LANSOPRAZOLE 30 MG PO SCH (20:29)
[2021-07-06] MEDS: AZELASTINE 137MCG/SPRAY EA NOSTRIL SCH (20:31)
[2021-07-06] MEDS: FAMOTIDINE 20 MG TAB PO SCH (20:31)
[2021-07-06] MEDS ORDERED: MONTELUKAST 10 MG TAB PO SCH (21:00)
[2021-07-06] MEDS ORDERED: ATORVASTATIN 80 MG TAB PO SCH (21:00)
[2021-07-07] MEDS: SODIUM CHLORIDE 0.9% 1,000 ML IV SCH (04:27)
[2021-07-07] MEDS: BACLOFEN 10 MG TAB PO SCH (08:32)
[2021-07-07] MEDS: GABAPENTIN 300 MG CAP PO SCH (08:32)
[2021-07-07] MEDS: SUCRALFATE 1 GM TAB PO SCH (08:32)
[2021-07-07] MEDS: AZELASTINE 137MCG/SPRAY EA NOSTRIL SCH (08:33)
[2021-07-07] MEDS: FAMOTIDINE 20 MG TAB PO SCH (08:33)
[2021-07-07] MEDS: TOPIRAMATE 25 MG TAB PO SCH (08:34)
[2021-07-07 08:51] LABS: HCT 32.3 % (37.2-46.3); HGB 10.2 g/dL (12.0-15.0); MCH 28.3 pg (27.0-32.0); MCHC 31.6 g/dL (32.0-37.0); MCV 89.7 fL (80.0-97.0); Mean Platelet Volume 8.8 fL (9.5-12.2); NRBC Per 100 WBC 0 /100 WBCS (0.0-0.0); Platelet Count 336 X 10*3/uL (140-440); RDW 15.7 % (11.5-14.5); WBC 5.05 X 10*3/uL (4.50-10.00)
[2021-07-07] MEDS ORDERED: SODIUM BICARBONATE TAB 650 MG TAB PO SCH (09:00)
[2021-07-07] MEDS ORDERED: MAGNESIUM OXIDE 400 MG TAB PO SCH (09:00)
[2021-07-07] MEDS ORDERED: LORATADINE 10 MG TAB PO SCH (09:00)
[2021-07-07] MEDS ORDERED: ASPIRIN 81 MG PO SCH (09:00)
[2021-07-07] MEDS ORDERED: CLOPIDOGREL 75 MG TAB PO SCH (09:00)
[2021-07-07] MEDS ORDERED: ESCITALOPRAM 10 MG TAB PO SCH (09:00)
[2021-07-07] MEDS ORDERED: ZINC SULFATE 220 MG CAP PO SCH (09:00)
[2021-07-07] MEDS ORDERED: MULTIVITAMINS, THERA 1 EACH TAB PO SCH (09:00)
[2021-07-07] MEDS ORDERED: FOLIC ACID 1 MG TAB PO SCH (09:00)
[2021-07-07] MEDS ORDERED: CHOLECALCIFEROL 25 MCG (1000 IU) TABLET PO SCH (09:00)
[2021-07-07] MEDS ORDERED: lisinopriL 5 MG TAB PO SCH (09:00)
[2021-07-07] MEDS ORDERED: ASCORBIC ACID 500 MG TAB PO SCH (09:00)
[2021-07-07] MEDS ORDERED: FLUTICASONE 50MCG/SPRAY NASAL 16GM EA NOSTRIL SCH (09:00)
[2021-07-07] MEDS ORDERED: CHOLESTYRAMINE (WITH SUGAR) 4 GM PACKET PO SCH (09:00)
[2021-07-07 09:04] LABS: ALT 49 U/L (8-44); AST 28 U/L (13-35); African American GFR (CKD) 114.8 (60.0-200.0); Albumin 3.2 g/dL (3.8-4.9); Alkaline Phosphatase 113 U/L (41-126); Blood Urea Nitrogen 13.8 mg/dL (9.0-27.0); Carbon Dioxide 18.7 mmol/L (20.0-27.5); Chloride 111 mmol/L (96-109); Glucose 91 mg/dL (70-110); Non-African American GFR(CKD) 99.1 (60.0-200.0); Potassium 3.8 mmol/L (3.5-5.5); Sodium 140 mmol/L (135-145); Total Bilirubin <0.15 mg/dL (0.30-1.20); Total Protein 5.2 g/dL (6.2-8.2)
[2021-07-07] MEDS: LANSOPRAZOLE 30 MG PO SCH (10:12)
--- NOTE | 2021-07-07 11:40 | P.DS ---
Providers Date of admission: 07/05/21 23:37 Attending physician: Isak Milligan Primary care physician: Isak Milligan [facility] Course: HISTORY OF PRESENT ILLNESS 61-year-old pleasant one of my office patient with past medical history of recent CVA with left side hemiparesis, who is known to have history of Crohn disease post subtotal colectomy and ileostomy, history of asthma, GERD, chronic neuropathy of the lower extremity was hospitalized in May 22 for stroke ended up going to rehab for over a month ended up going home with her family. Patient ended up in the hospital 2 weeks ago with significant hypovolemic shock related to intractable nausea vomiting along with gastroenteritis was quite bit dehydrated at the time. Was admitted for few days and sent home. Patient developed to have severe intractable tiredness fatigue nausea and dry heaves and generalized symptoms ended up coming to the emergency department at [facility] on 07/05/2021 were found to have acute kidney injury with creatinine around 1.5 GFR is down in the 40s. Patient was severely dehydrated the time, also her urine test was not completely clear patient was started on Rocephin aggressive hydration admit patient to the hospital for the above symptoms. 07/07: Patient was well-hydrated overnight her creatinine improved significantly with GFR is up to 60 percentile. Her urine came back slightly but positive despite be on antibiotic recently was start patient back on Ceftin from Rocephin IV. Patient become slightly bit nauseous every time we try to switch her PPI from Prevacid to Protonix. She'll be switch back to her home regime soon as she gets home she still have some Zofran for nausea otherwise well-hydrated doing well home care will be arranged for patient along with physical therapy. Patient be discharged home today. REVIEW OF SYSTEMS Constitutional: No fever, no chills, no night sweats. No weight change. No weakness, fatigue or lethargy. Noted daytime sleepiness. EENT: Reported headache. No blurred vision or double vision, no loss of vision. No loss of Hearing, no ringing in the ears, no dizziness. No nasal drainage or congestion. No epistaxis. No sore throat. Lungs: No shortness of breath, cough, no sputum production. No wheezing. Cardiovascular: No chest pain, no lower extremity edema. No palpitations. No paroxysmal nocturnal dyspnea. No orthopnea. No lightheadedness or dizziness. No syncopal episodes. Abdominal: No abdominal pain. No nausea, vomiting. No diarrhea. No constipation. No bloody or tarry stools. No loss of appetite. Genitourinary: No dysuria, increased frequency, urgency. No urinary retention. Musculoskeletal: No myalgias. No muscle weakness, no gait dysfunction, no frequent falls. No back pain. No neck pain. Integumentary: No wounds, no lesions. No rash or pruritus. No unusual bruising. No change in hair or nails. Neurologic: Noted facial droop. No change in mentation. No head injury. No headache. Noted left paralysis. Psychiatric: No depression. No anxiety. No mood swings. Endocrine: No abnormal blood sugars. No weight change. No excessive sweating or thirst. No cold intolerance. PHYSICAL EXAMINATION Gen: This is a 61-year-old female. She is resting in the ICU bed and appears to be comfortable at rest. is at bedside. HEENT: Head is atraumatic, normocephalic. Pupils equal, round. Sclerae is anicteric. Left-sided neglect. Left facial droop. NECK: Supple. No JVD. No lymphadenopathy. No thyromegaly. LUNGS: Clear to auscultation. No wheezes or rhonchi. No intercostal retractions. loop recorder with out any skin changes HEART: Regular rate and rhythm. No murmur. ABDOMEN: Soft. Bowel sounds are present. No masses. No tenderness. EXTREMITIES: No pedal edema. No calf tenderness. NEUROLOGICAL: Patient is awake, alert and oriented x3. Cranial nerves 2 through 12 are grossly intact. Left-sided hemiplegia ASSESSMENT AND PLAN 1 acute kidney injury: creatinine GFR has improved back to normal with hydration continue oral hydration at home. 2 possible sepsis and UTI: Urine was slightly positive will continue patient on Rocephin and switched to Ceftin orally. 3 left-sided hemiparesis secondary to acute CVA from May 2021 90 clear etiology A. fib was not found at the time, patient still on secondary prevention been on atorvastatin, Plavix and aspirin. Continue PTOT. 4 chronic history of Crohn's disease and ulcerative colitis post ileostomy and bowel resection has been doing well. 5 recurrent history of ventral hernia post surgery has done very well so far. 6 severe gastritis and GERD: Patient has been on lansoprazole long with Carafate and Pepcid symptoms are better control so far. 7 history of asthma without excessive patient has been doing well with Singulair and Xopenex. 8 chronic neuropathy: Has been on gabapentin 300 mg 3 times a day continue medication. 9 severe recurrent restless leg syndrome: Since her stroke patient become much worse has been on Requip 2 mg at bedtime. 10 GI prophylaxis: Continue patient on PPI. 11 DVT prophylaxis: Patient will continue Venodyne boots and knee-high CANDY hose and subcutaneous heparin will be done as well. CODE STATUS: Full code. Discharge planning: Patient be discharged home today. Hospital course: Was hospitalized with her acute kidney injury and severe dehydration with IV fluid hydration and antiemesis medication patient has done very well also found to have UTI and was started on Rocephin and switched to oral Ceftin. Patient is doing better today will be discharged home today with family resume home care physical therapy. Time spent for Pt Discharge: 33 minutes Patient Condition at Discharge: Stable Plan - Discharge Summary New Discharge Prescriptions: New Cefuroxime [Ceftin] 250 mg PO BID 7 Days #14 tab Melatonin 3 mg PO HS PRN tablet PRN Reason: Insomnia Acetaminophen Tab [Tylenol] 650 mg PO Q6HR PRN tab PRN Reason: Mild Pain Or Fever > 100.5 Continue Azelastine HCl 1 spray EA NOSTRIL BID@0900,2100 Montelukast [Singulair] 10 mg PO HS@2100 Levalbuterol Hfa Inhaler [Xopenex Hfa Inhaler] 1 - 2 puff INHALATION RT-DAILY PRN PRN Reason: Shortness Of Breath Cyanocobalamin [Vitamin B-12 Injection] 1.5 ml IM QMONTH Famotidine [Pepcid] 20 mg PO BID@0900,2100 Fexofenadine HCl [Maria Luz Allergy] 180 mg PO DAILY@0900 Escitalopram [Lexapro] 10 mg PO DAILY@0900 Lansoprazole [Prevacid] 30 mg PO BID@0900,2100 Ascorbic Acid [Vitamin C] 500 mg PO DAILY@0900 Multivitamins, Thera [Multivitamin (formulary)] 1 tab PO DAILY@0900 Topiramate [Topamax] 25 mg PO BID@0900,2100 Gabapentin 300 mg PO TID@0900,1500,2100 Acetaminophen-Codeine 300-30mg [Tylenol w/codeine #3] 1 tab PO Q4H PRN PRN Reason: Moderate Pain Sucralfate [Carafate] 1 gm PO BID@0900,2099 lisinopriL [Zestril] 10 mg PO DAILY@0900 Fluticasone Nasal Cornell [Flonase Nasal Cornell] 2 spray EA NOSTRIL DAILY@0900 Baclofen [Lioresal] 10 mg PO TID@0900,1500,2099 Atorvastatin [Lipitor] 80 mg PO HS@2099 Cholestyramine (with Sugar) [Cholestyramine Packet] 4 gm PO DAILY@0900 Ondansetron Odt [Zofran ODT] 8 mg PO BID PRN PRN Reason: Nausea Folic Acid 0.4 mg PO DAILY@0900 Magnesium Oxide [Mag-Ox] 400 mg PO Q48H Zinc 50 mg PO DAILY@0900 Cholecalciferol [Vitamin D3 (25 Mcg = 1000 Iu)] 25 mcg PO DAILY@0900 Albuterol Sulfate [Albuterol Sulfate Hfa] 2 puff INHALATION RT-Q4H PRN PRN Reason: Wheezing rOPINIRole HCL [Requip] 2 mg PO HS@2099 Sodium Bicarbonate Tab 650 mg PO DAILY@0900 Clopidogrel [Plavix] 75 mg PO DAILY@0900 Aspirin 325 mg PO DAILY@0900 Discharge Medication List Azelastine HCl 1 spray EA NOSTRIL BID@0900,209911/20/14 [History] Cyanocobalamin [Vitamin B-12 Injection] 1.5 ml IM QMONTH 11/20/14 [History] Levalbuterol Hfa Inhaler [Xopenex Hfa Inhaler] 1 - 2 puff INHALATION RT-DAILY PRN 11/20/14 [History] Montelukast [Singulair] 10 mg PO HS@209911/20/14 [History] Famotidine [Pepcid] 20 mg PO BID@0900,209907/11/19 [History] Escitalopram [Lexapro] 10 mg PO DAILY@0900 03/11/20 [History] Fexofenadine HCl [Maria Luz Allergy] 180 mg PO DAILY@0900 03/11/20 [History] Lansoprazole [Prevacid] 30 mg PO BID@0900,209905/07/20 [History] Ascorbic Acid [Vitamin C] 500 mg PO DAILY@0900 22 [History] Folic Acid 0.4 mg PO DAILY@89905/10/21 [History] Magnesium Oxide [Mag-Ox] 400 mg PO Q48H 05/10/21 [History] Zinc 50 mg PO DAILY@89905/10/21 [History] Acetaminophen-Codeine 300-30mg [Tylenol w/codeine #3] 1 tab PO Q4H PRN 06/19/21 [History] Albuterol Sulfate [Albuterol Sulfate Hfa] 2 puff INHALATION RT-Q4H PRN 06/19/21 [History] Cholecalciferol [Vitamin D3 (25 Mcg = 1000 Iu)] 25 mcg PO DAILY@89906/19/21 [History] Gabapentin 300 mg PO TID@0900,1500,209906/19/21 [History] Multivitamins, Thera [Multivitamin (formulary)] 1 tab PO DAILY@89906/19/21 [History] Topiramate [Topamax] 25 mg PO BID@899,209906/19/21 [History] rOPINIRole HCL [Requip] 2 mg PO HS@209906/19/21 [History] Aspirin 325 mg PO DAILY@89907/05/21 [History] Atorvastatin [Lipitor] 80 mg PO HS@209907/05/21 [History] Baclofen [Lioresal] 10 mg PO TID@0900,1500,209907/05/21 [History] Cholestyramine (with Sugar) [Cholestyramine Packet] 4 gm PO DAILY@89907/05/21 [History] Clopidogrel [Plavix] 75 mg PO DAILY@89907/05/21 [History] Fluticasone Nasal Cornell [Flonase Nasal Cornell] 2 spray EA NOSTRIL DAILY@89907/05/21 [History] Ondansetron Odt [Zofran ODT] 8 mg PO BID PRN 07/05/21 [History] Sodium Bicarbonate Tab 650 mg PO DAILY@89907/05/21 [History] Sucralfate [Carafate] 1 gm PO BID@0900,209907/05/21 [History] lisinopriL [Zestril] 10 mg PO DAILY@89907/05/21 [History] Acetaminophen Tab [Tylenol] 650 mg PO Q6HR PRN tab 07/07/21 [Rx] Cefuroxime [Ceftin] 250 mg PO BID 7 Days #14 tab 07/07/21 [Rx] Melatonin 3 mg PO HS PRN tablet 07/07/21 [Rx] Follow up Appointment(s)/Referral(s): Isak Milligan MD [Primary Care Provider] - 07/12/21 1:15 pm (With Lily) [facility], [NON-STAFF] - Patient Instructions/Handouts: Acute Kidney Injury (DC), Weakness (DC) Discharge Disposition: HOME WITH HOME HEALTH SERVICES
[2021-07-07 14:08] VITALS: BP 114/62; PULSE 84; RESP 17; TEMP 97.7
== END 2021-07-07 14:50 | disposition home health service (06) ==
LOC: EC 18:21 → 4SSUR 23:37
PROVIDERS: ADMIT Internal Medicine Geriatric Medicine; ATTEND Internal Medicine Geriatric Medicine
DX: N17.9 Acute kidney failure, unspecified (principal); N39.0 Urinary tract infection, site not specified; E86.0 Dehydration; I69.354 Hemiplegia and hemiparesis following cerebral infarction affecting left non-dominant side; K50.90 Crohn's disease, unspecified, without complications; K43.9 Ventral hernia without obstruction or gangrene; Z20.822 Contact with and (suspected) exposure to COVID-19; K29.70 Gastritis, unspecified, without bleeding; J45.909 Unspecified asthma, uncomplicated; G62.9 Polyneuropathy, unspecified; K21.9 Gastro-esophageal reflux disease without esophagitis; E83.39 Other disorders of phosphorus metabolism; G25.81 Restless legs syndrome; E66.9 Obesity, unspecified; Z68.26 Body mass index [BMI] 26.0-26.9, adult; N95.0 Postmenopausal bleeding; G57.90 Unspecified mononeuropathy of unspecified lower limb; Z79.02 Long term (current) use of antithrombotics/antiplatelets; Z79.82 Long term (current) use of aspirin; Z79.899 Other long term (current) drug therapy; Z88.5 Allergy status to narcotic agent; Z88.8 Allergy status to other drugs, medicaments and biological substances; Z91.018 Allergy to other foods; Z88.6 Allergy status to analgesic agent; Z90.710 Acquired absence of both cervix and uterus; Z90.49 Acquired absence of other specified parts of digestive tract; Z86.19 Personal history of other infectious and parasitic diseases; Z82.49 Family history of ischemic heart disease and other diseases of the circulatory system; Z83.79 Family history of other diseases of the digestive system
CPT/HCPCS: 96365; 96366; 96375; 99285; 36415; 93005; 36410; 76937; 80053 ×3; 83735 ×2; 84100 ×2; 84484; 85025 ×2; 85027; 81001 ×2; 87635; 71046; G0378 ×2; J2405; J0696 ×2

== ENCOUNTER → 2021-09-08 | Outpatient (CLI) | payer MEDICAID ==
--- NOTE | 2021-09-08 16:01 | US ---
EXAMINATION TYPE: US venous doppler duplex UE LT DATE OF EXAM: 09/08/2021 COMPARISON: NONE CLINICAL HISTORY: M79.622 PAIN IN LT UPPER LIMB. Patient on blood thinner. History of stroke 05/22. P ain left arm SIDE PERFORMED: left Left Arm: *technical limitations, patient unable to rotate arm away from side into correct position, limited evaluation of axillary and brachial veins. Unable to visualize cephalic vein. No evidence of DVT as visualized IMPRESSION: Markedly Limited exam as discussed above. Within the visualized deep venous system no diagnostic evid ence of DVT. See above regarding marked limitation of certain venous structures.
== END | disposition home or self-care (01) ==
LOC: RADUSWWP 14:11
PROVIDERS: ATTEND Internal Medicine
DX: M79.622 Pain in left upper arm (principal); M79.602 Pain in left arm; Z86.73 Personal history of transient ischemic attack (TIA), and cerebral infarction without residual deficits